=== PATIENT | female | born 1945 | race Asian ===

== ENCOUNTER 2019-06-24 12:01 | Outpatient (CLI) | payer OTHER ==
[2019-06-24 13:56] LABS: Hemoglobin 12.8 g/dL (12.0-16.0); Mean Corpuscular HGB CONC 32.8 g/dL (32.0-36.0); Mean Corpuscular Hemoglobin 26.5 pg (27.0-31.0); Mean Platelet Volume 6.9 fL (7.4-10.4); Platelet Count 302 thou/uL (130-400); Red Blood Cell (RBC) Count 4.81 mill/uL (4.20-5.40); White Blood Cell (WBC) Count 7.1 thou/uL (4.8-10.8)
[2019-06-24 14:23] LABS: Anion Gap 13 mmol/L (10-20); BUN (Urea Nitrogen) 15 mg/dL (9.8-20.1); Calc. Creatinine Clearance 0 mL/min (70-130); Calcium 9.1 mg/dL (7.8-10.44); Carbon Dioxide 29 mmol/L (23-31); Chloride 97 mmol/L (98-107); Estimated GFR-MDRD Greater than 90; Glucose 96 mg/dL (83-110); Potassium 3.6 mmol/L (3.5-5.1); Sodium 135 mmol/L (136-145)
--- NOTE | 2019-06-28 18:53 | EKG ---
Test Reason : Blood Pressure : / mmHG Vent. Rate : 080 BPM Atrial Rate : 080 BPM P-R Int : 148 ms QRS Dur : 086 ms QT Int : 382 ms P-R-T Axes : 043 -45 058 degrees QTc Int : 440 ms Normal sinus rhythm Left axis deviation Pulmonary disease pattern Cannot rule out Anterior infarct , age undetermined RSR' or QR pattern in V1 suggests right ventricular conduction delay Nonspecific T wave abnormality Abnormal ECG No previous ECGs available Confirmed by ALISA FIELDS, DR. Deal ([id number]) on 06/28/2019 6:52:49 PM Referred By: ALEXIA Confirmed By:DR. Toyin CUELLAR MD
== END 2019-06-24 12:02 | disposition home or self-care (01) ==
LOC: LABBT 12:01
PROVIDERS: ATTEND Thoracic Surgery (Cardiothoracic Vascular Surgery)
DX: Z01.818 Encounter for other preprocedural examination (principal); R91.8 Other nonspecific abnormal finding of lung field
CPT/HCPCS: 80048; 85027; 93005; 93010

== ENCOUNTER 2019-07-16 13:13 | Outpatient (CLI) | payer OTHER ==
--- NOTE | 2019-07-16 15:46 | CT ---
CT CHEST WITH IV CONTRAST: HISTORY: Lung cancer. Primary malignant neoplasm of right main bronchus. COMPARISON: None. FINDINGS: There is atelectatic change in the right upper lobe with an associated right upper lobe bronchus cuto ff sign indicating endobronchial lesion. There is extensive mediastinal lymphadenopathy. There is t umor thrombus causing filling defect in the SVC. There is a moderate right and a small left pleural effusion. Numerous lung nodules are seen throughout the lungs bilaterally. Upper abdominal tomogram s demonstrate no significant abnormalities. There are degenerative changes in the spine. No osteoly tic or osteoblastic lesions are seen. IMPRESSION: Right lung malignancy with metastatic disease. POS: [facility]
--- NOTE | 2019-07-16 16:17 | MRI ---
MRI BRAIN WITH AND WITHOUT IV CONTRAST: 07/16/19 HISTORY: Lung cancer, evaluate for metastatic disease. FINDINGS: There are multiple foci of T2 prolongation of the periventricular white matter consistent with chroni c small vessel disease. There is cortical atrophy. The ventricular size is appropriate and the basila r cisterns patent. No restricted diffusion is seen. No evidence of infarct, hemorrhage, mass, midline shift or abnormal extra-axial fluid collections is noted. No abnormal postcontrast enhancement is se en. IMPRESSION: No evidence of brain metastases. POS: [facility]
== END 2019-07-16 13:14 | disposition home or self-care (01) ==
LOC: SCSCT 13:13
PROVIDERS: ATTEND Internal Medicine Hematology & Oncology
DX: C34.01 Malignant neoplasm of right main bronchus (principal); C79.9 Secondary malignant neoplasm of unspecified site
CPT/HCPCS: 70553; 71260

== ENCOUNTER 2019-07-17 10:26 | Emergency (ER) | payer OTHER ==
[2019-07-17 10:58] LABS: #Lymphocytes 0.9 thou/uL (1.20-3.40); #Monocytes 0.6 thou/uL (0.11-0.59); #Neutrophils 7.4 thou/uL (1.40-6.50); %Basophils 0.3 % (0.0-1.0); %Eosinophils 0.3 % (0.0-10.0); %Monocytes 6.6 % (0.0-10.0); %Neutrophils 82.8 % (42.0-75.0); Hemoglobin 12.6 g/dL (12.0-16.0); Mean Corpuscular HGB CONC 33.6 g/dL (32.0-36.0); Mean Corpuscular Hemoglobin 27.2 pg (27.0-31.0); Mean Corpuscular Volume 81.1 fL (78.0-98.0); Mean Platelet Volume 6.7 fL (7.4-10.4); Platelet Count 312 thou/uL (130-400); RBC Distribution Width 12.1 % (11.5-14.5); Red Blood Cell (RBC) Count 4.62 mill/uL (4.20-5.40); White Blood Cell (WBC) Count 8.9 thou/uL (4.8-10.8)
--- NOTE | 2019-07-17 11:10 | RAD ---
EXAM: Chest 2 views: HISTORY: Cough and shortness of breath for 2 weeks COMPARISON: CT chest 07/16/2019 FINDINGS: There is a normal-sized cardiomediastinal silhouette. Scattered nodules are seen in the lungs. There is opacity in the right apex which represents the right upper lobe atelectasis seen on CT. The bones are unremarkable. IMPRESSION: 1. Multifocal pulmonary nodules most likely represent metastatic disease. 2. Right upper lobe collapse
[2019-07-17 11:20] LABS: ALT (SGPT) 12 U/L (8-55); AST (SGOT) 21 U/L (5-34); Albumin 3.6 g/dL (3.4-4.8); Alkaline Phosphatase 94 U/L (40-110); Anion Gap 16 mmol/L (10-20); BUN (Urea Nitrogen) 10 mg/dL (9.8-20.1); Bilirubin, Total 1.1 mg/dL (0.2-1.2); Calc. Creatinine Clearance 0 mL/min (70-130); Calcium 9.1 mg/dL (7.8-10.44); Carbon Dioxide 24 mmol/L (23-31); Chloride 89 mmol/L (98-107); Estimated GFR-MDRD 89; Globulin 3.6 g/dL (2.4-3.5); Glucose 120 mg/dL (83-110); Potassium 3.1 mmol/L (3.5-5.1); Protein, Total 7.2 g/dL (6.0-8.3); Sodium 126 mmol/L (136-145)
[2019-07-17] MEDS ORDERED: Iopamidol-370 76% 500 ML 1 ML ONE (11:47)
[2019-07-17] MEDS ORDERED: Aspirin Chewable 81 MG TAB ONE (14:15)
--- NOTE | 2019-07-17 14:39 | CT ---
CT ANGIOGRAM CHEST: 07/17/2019 HISTORY: Right sided lung cancer. Worsening shortness of breath with right sided chest pain. COMPARISON: Chest CT from 07/16/2019. TECHNIQUE: Axial CT imaging obtained at 2.5 mm intervals from the thoracic inlet through the upper abdomen with IV contrast using CT angiogram protocol. Coronal and sagittal 3D reformatted imaging obtained. FINDINGS: No axillary lymphadenopathy is noted on either side. The chest CT performed on 07/16/2019 demonstrate s superior vena cava clot, which is difficult to visualize on this examination secondary to obscurati on on the basis of venous contrast media. Superior vena cava clot is noted on axial image 34. No disc rete hilar adenopathy on the left. Subcarinal adenopathy present, measuring 2 cm. There is an ill-def ined, large, stable right hilar/right upper lobe mass lesion, which obliterates the right upper lobe bronchus, with associated right middle lobe collapse. It is difficult to accurately measure the size of the obstructing right upper lobe mass lesion secondary to it blending in with the adjacent complet reginaldo collapsed right upper lobe. There is pretracheal soft tissue density, consistent with lymphadenop athy, measuring up to 2 cm, just proximal to the axial level of the [place]. There is a small to mode rate sized right pleural effusion and there is a small left pleural effusion. Enumerable pulmonary no dules are noted throughout both lungs, consistent with widespread pulmonary parenchymal metastatic di sease. Review of the upper abdomen appears grossly unremarkable. There is adequate opacification of the pulmonary arterial vasculature. There is segmental acute pulmo nary embolism involving the left upper lobe on axial image 41. There is nonocclusive pulmonary arteri al embolism within the lobar pulmonary arteries supplying the left lower lobe on axial image 49. Seco ndary to tumor compression there is marked attenuation of the pulmonary arterial vasculature supplyin g the right upper lobe. There is acute pulmonary artery embolism involving a segmental pulmonary dwayne ry within the posterior aspect of the right lower lobe on axial image 63. Review of the osseous structures demonstrates no discrete osseous lesion within the spine. There is a suspicious lytic lesion involving the posterolateral aspect of the left fourth rib on axial image 25 . Whole body bone scan suggested for full assessment. There is a small pericardial effusion. IMPRESSION: 1. Large right hilar mass lesion obliterating the right upper lobe bronchus with associated right upp er lobe collapse. 2. Mediastinal metastatic lymphadenopathy. 3. Enumerable pulmonary nodules throughout both lungs, consistent with widespread pulmonary parenchym al metastatic disease. 4. Lytic lesion within the fourth rib, posterolaterally, on the left, suspicious for osseous metastat ic disease. Full assessment via bone scan suggested. 5. Small pericardial effusion. 6. Bilateral pleural effusions. 7. Bilateral pulmonary artery emboli. 8. Clot within superior vena cava. Royer Nelson was made aware, via phone, by Dr. Berrios at 2:16 p.m. on 07/17/2019. CODE CR POS: [facility]
[2019-07-17 17:11] LABS: Prothrombin Time 13.5 SEC (12.0-14.7)
[2019-07-17] MEDS ORDERED: Enoxaparin Sodium 60 MG/0.6 ML SYRINGE ONE (17:51)
== END 2019-07-17 19:10 | disposition short-term general hospital (02) ==
LOC: ERS 10:26
DX: C34.11 Malignant neoplasm of upper lobe, right bronchus or lung (principal); J90 Pleural effusion, not elsewhere classified; C78.1 Secondary malignant neoplasm of mediastinum; I26.99 Other pulmonary embolism without acute cor pulmonale; I82.210 Acute embolism and thrombosis of superior vena cava; M19.90 Unspecified osteoarthritis, unspecified site; I10 Essential (primary) hypertension; Z79.891 Long term (current) use of opiate analgesic; Z79.899 Other long term (current) drug therapy
CPT/HCPCS: 36415; 71046; 71275; 80053; 83735; 83880; 84484; 85025; 85379; 85610; 85730; 86850; 86900; 86901; 87804; 93005; 94760; 96372; J1650; Q9967

== ENCOUNTER 2019-07-22 09:10 | Outpatient (CLI) | payer OTHER ==
--- NOTE | 2019-07-23 10:30 | PET ---
PET CT: HISTORY: 73-year-old female with lung cancer. Exam requested for initial staging. 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 Malignant neoplasm of right main bronchus. COMPARISON: None. CORRELATION: CT pulmonary angiogram of 05/16/2020. TECHNIQUE: PET scanning with CT attenuation correction was performed from the vertex through the proximal thigh s following the intravenous administration of 10.7 mCi F18-FDG in the left wrist. FINDINGS: There is increased FDG localization in the large right hilar/perihilar/upper lobe mass with a SUV of 17.4. A focus of increased FDG localization is also seen in the left tonsil with a SUV of 6.3. There are multiple hypermetabolic lymph nodes with SUVs of 12.2 in the right paratracheal, 9.3 in the precarinal, 17.1 in the subcarinal, 7 in the AP window, and 7.5 in the left hilum. Numerous hypermetabolic lung nodules are seen bilaterally with a maximum SUV of 10.6 in the left lung base. There is a small hypermetabolic left paracrural lymph node (between the left crux and stomach) with a SUV of 3.1. There are bilateral hypermetabolic supraclavicular lymph nodes with SUVs of 7 .7 on the right and 10. 3 on the left. No hypermetabolic liver, adrenal, or skeletal lesions are seen. There is physiologic activity in the GI and tracts, and brain. The CT scan used for attenuation correction demonstrates a small left and moderate right pleural effu elayne, and a tiny pericardial effusion. IMPRESSION: 1. Right lung malignancy with metastatic disease as discussed above. 2. Hypermetabolic focus in the left tonsil. This should be evaluated with direct visualization. Discussed over the telephone with Dr. Doran at 1006 hours on 07/23/2019. CODE CR. POS: [facility]
== END 2019-07-22 09:11 | disposition home or self-care (01) ==
LOC: PET 09:10
PROVIDERS: ATTEND Internal Medicine Hematology & Oncology
DX: C34.01 Malignant neoplasm of right main bronchus (principal); C79.9 Secondary malignant neoplasm of unspecified site
CPT/HCPCS: 78815; A9552

== ENCOUNTER 2019-10-29 07:35 | Outpatient (CLI) | payer OTHER ==
--- NOTE | 2019-10-29 10:59 | PET ---
Radionucleotide PET with CT attenuation correction HISTORY: Malignant neoplasm right mainstem bronchus. Restaging. COMPARISON: 07/22/1999 FINDINGS: Physiologic uptake of radiotracer throughout the enteric system and along each urinary trac t, and at the muscles of phonation. Focal area of increased activity at the left tonsil now shows max SUV 4.4 (previously 5.8). At the right side of the thyroid gland, there is now a focal area of increased activity max SUV 6.0 ( previously 4.8). Given the fused images and lack of a visible adjacent lymph node, the hypermetabolic focus is favored to actually be within the right thyroid lobe. Uptake associated with the right suprahilar mass now shows max SUV 14.7 (previously 18.2). Many of the areas of abnormal uptake throughout the lungs, pleura, and mediastinal lymph nodes have c ompletely resolved. The remaining mediastinal lymph node hypermetabolic activity is as follows: Left hilar 5.1 (previously 7.5) Precarinal 8.9 (9.5) Subcarinal 5.4 (17.1) A small focus of residual activity remains associated with the far anterior right pleura at the level of the ascending aorta max SUV 3.0 (previously 11.4). Uptake associated with the L4 transverse process max SUV 2.6 is likely reactive rather than neoplasti c. Nondiagnostic CT attenuation correction images show the atelectatic component of the right upper lobe to have improved slightly. Right pleural fluid has increased, however, with slightly greater leftward shift of the mediastinum. Minimal pericardial fluid also noted. IMPRESSION : Significant improvement. Complete clearing of many of the metastatic lesions. Significantly decreased activity associated with the remaining intrathoracic metastatic disease. Hypermetabolic focus associated with the left tonsil persists. Tiny hypermetabolic focus of the right neck favored to be centered within the right thyroid lobe. Ple ase consider dedicated thyroid sonogram to evaluate for an aggressive thyroid mass or adjacent lymph node. Slight interval increase in size of right pleural effusion.
== END 2019-10-29 07:36 | disposition home or self-care (01) ==
LOC: PET 07:35
PROVIDERS: ATTEND Internal Medicine Hematology & Oncology
DX: C34.01 Malignant neoplasm of right main bronchus (principal); C79.89 Secondary malignant neoplasm of other specified sites; E07.9 Disorder of thyroid, unspecified; J90 Pleural effusion, not elsewhere classified
CPT/HCPCS: 78815; A9552

== ENCOUNTER 2019-11-08 13:12 | Outpatient (CLI) | payer OTHER ==
--- NOTE | 2019-11-08 17:39 | ULT ---
THYROID ULTRASOUND: 11/08/19 INDICATIONS: The film was performed in follow-up to PET scan of 10/29/19 which revealed activity in the region of t he right thyroid. FINDINGS: Both lobes are relatively homogeneous and have symmetric size with left lobe measuring 1.2 x 3.2 x 1. 0 cm and right lobe measuring 1.4 x 4.1 x 2.0 cm. There is an oblong shaped complex nodule in the superior to mid right lobe measuring 1.7 x 0.8 x 1.1 cm. No other mass or nodule identified. IMPRESSION: Small oblong shaped predominantly isoechoic but somewhat heterogeneous nodule in the upper mid right lobe of thyroid. Because of its apparent increased activity on PET scan, recommend ultrasound guided FNA to further evaluate. POS: [facility]
== END 2019-11-08 13:13 | disposition home or self-care (01) ==
LOC: SCSULT 13:12
PROVIDERS: ATTEND Internal Medicine Hematology & Oncology
DX: R94.8 Abnormal results of function studies of other organs and systems (principal); E04.1 Nontoxic single thyroid nodule
CPT/HCPCS: 76536

== ENCOUNTER 2019-11-16 11:05 | Outpatient (CLI) | payer OTHER ==
[2019-11-17 12:47] LABS: SARS-CoV-2 MS2 Positive; SARS-CoV-2 N Gene Negative; SARS-CoV-2 S Gene Negative; SARS-CoV-2 orf1ab Negative
== END 2019-11-16 11:06 | disposition home or self-care (01) ==
LOC: SCSLAB 11:05
PROVIDERS: ATTEND Internal Medicine Hematology & Oncology
DX: Z01.812 Encounter for preprocedural laboratory examination (principal); Z11.59 Encounter for screening for other viral diseases; C34.01 Malignant neoplasm of right main bronchus
CPT/HCPCS: 87635; U0003

== ENCOUNTER 2019-11-18 12:08 | Day surgery (SDC) | payer OTHER ==
[2019-11-17 15:18] VITALS: BMI 26.2
[2019-11-18] MEDS ORDERED: Lidocaine 1% PF 5 ML VIAL ONE (12:30)
[2019-11-18] MEDS ORDERED: Sodium Bicarbonate 2.5 MEQ/5 ML VIAL ONE (12:30)
--- NOTE | 2019-11-18 14:02 | ULT ---
Ultrasound-guided right thyroid nodule FNA INDICATION: FDG avid superior pole right thyroid gland lesion Comparison prior thyroid ultrasound dated November 08, 2019 and a PET scan dated October 29, 2019 TECHNIQUE: Informed consent was obtained through an behavior specialist and the patient's son. The lesion wit hin the superior pole of the right thyroid gland was localized. Due to the patient having a somewhat short neck, transverse approach with the ultrasound probe was only method available for acce ss. Site overlying the lesion was prepped and draped in the usual sterile fashion. Buffered 1% lidocaine was measured overlying subcutaneous tissues. Under ultrasound guidance, 5 separate 25-gauge needle was passed through the lesion for FNA sampling. Pathology was on-site to obtain the FNA samples once acquired. 5 total FNA samples were submitted. Post procedure images demonstrated no sign ificant intraparenchymal or adjacent soft tissue hematoma. The patient tolerated the procedure without difficulty. IMPRESSION: Successful ultrasound-guided FNA sampling of a suspicious superior pole right thyroid gla nd lesion.
[2019-11-18 14:32] VITALS: BP 148/81; TEMP 98.4
== END 2019-11-18 14:15 | disposition home or self-care (01) ==
LOC: ULT 12:08
PROVIDERS: ATTEND Internal Medicine Hematology & Oncology
PROC: BG44ZZZ Ultrasonography of Thyroid Gland (ICD-10-PCS; principal; 2019-11-18)
PROC: 0GJK3ZZ Inspection of Thyroid Gland, Percutaneous Approach (ICD-10-PCS; principal; 2019-11-18)
DX: E06.3 Autoimmune thyroiditis (principal); C34.90 Malignant neoplasm of unspecified part of unspecified bronchus or lung; I10 Essential (primary) hypertension
CPT/HCPCS: 60100; 76942; 88173; J2001

== ENCOUNTER 2020-01-25 14:13 | Outpatient (CLI) | payer OTHER ==
[~2020-01-25 14:13] MED LIST: Iopamidol 370 76% 100 ML VIAL ONE
--- NOTE | 2020-01-25 15:22 | CT ---
CT Chest Abd Pelvis W Con History: Malignant neoplasm of bronchus Comparison: PET/CT October 2019. CT chest July 2019 Findings: Large right layering pleural effusion. The partially necrotic mass in the right upper lobe has decreased in size from the July 2019 exam and difficult to measure relative to the prior none contrast attenuated corrected images from the PET/CT October 2019 although is likely decreased in si ze. Mass measures approximately 3.2 cm. Mild leftward mediastinal shift due to large right layering pleural effusion which is not significantly increased in size from the October 2019 exam. Innumerable small nodules throughout the lungs are without significant interval growth from the September xamination and have markedly decreased in size and number from the July exam. Trace pericardial fluid. No axillary or internal mammary adenopathy. Aortic contour is nonaneurysmal. No free intraperitoneal gas or fluid. No dilated loops of large and small bowel. No hydronephrosis. No suspicious hepatic mass. No hydronephrosis. Spleen is unremarkable. Degenerative glands are unrema rkable. Pancreas is unremarkable. No SVC thrombosis appreciated. Healing likely pathologic left posterior fourth rib fracture. No new suspicious osteolytic or osteobl astic foci. The thoracic and lumbar spine are intact. Sternum and manubrium are intact. Posterior elements are in tact. 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 Impression: 1. Continued partial response to therapy with size decreased right upper lobe mass and decreasing siz e and number of the pulmonary metastasis. 2. Healing posterior left fourth rib pathologic fracture. No other suspicious osteolytic or osteoblas tic lesion to suggest other osseous metastasis. 3. Size unchanged large right layering pleural effusion with some mediastinal mass effect.
--- NOTE | 2020-01-25 20:56 | CT ---
CT NECK WITH CONTRAST: 01/25/20 INDICATIONS: Malignant neoplasm of bronchus. Correlation made to PET CT of 10/29/19. That exam describes some activity in the region of the left tonsil and in the region of the right lob e of thyroid. FINDINGS: Parotid glands and submandibular glands appear unremarkable. Thyroid is unremarkable by CT. This is mildly heterogeneous but no dominant mass lesion identified. Nasopharynx unremarkable. Oropharynx and base of tongue unremarkable. [place] tonsils appear unremarkable by CT. Hypopharynx and larynx unremarkable. Parapharyngeal space, rubber worker space, and retropharyngeal space unremarkable. Carotid space unremarkable. Review of lymph node levels shows small nonspecific level I submandibular nodes which are subcentimet er. Nonspecific level II lymph nodes which do not appear pathologic. No significant level III or IV lymph nodes identified. Cervical spine unremarkable. Paranasal sinuses appear clear. IMPRESSION: Unremarkable CT neck. No mass or adenopathy identified. POS: [facility]
== END 2020-01-25 14:14 | disposition home or self-care (01) ==
LOC: BICCT 14:13
PROVIDERS: ATTEND Internal Medicine Hematology & Oncology
DX: C34.01 Malignant neoplasm of right main bronchus (principal); R93.7 Abnormal findings on diagnostic imaging of other parts of musculoskeletal system; R91.8 Other nonspecific abnormal finding of lung field; C78.00 Secondary malignant neoplasm of unspecified lung; S22.32XD Fracture of one rib, left side, subsequent encounter for fracture with routine healing; J90 Pleural effusion, not elsewhere classified; J98.59 Other diseases of mediastinum, not elsewhere classified
CPT/HCPCS: 70491; 71260; 74177; Q9967

== ENCOUNTER 2020-01-27 10:51 | Day surgery (SDC) | payer OTHER ==
[2020-01-27 11:29] LABS: #Lymphocytes 0.9 thou/uL (1.20-3.40); #Monocytes 0.4 thou/uL (0.11-0.59); #Neutrophils 2.5 thou/uL (1.40-6.50); %Basophils 0.3 % (0.0-1.0); %Eosinophils 0.5 % (0.0-10.0); %Lymphocytes 22.5 % (21.0-51.0); %Monocytes 11.4 % (0.0-10.0); %Neutrophils 65.2 % (42.0-75.0); Hemoglobin 11.2 g/dL (12.0-16.0); Mean Corpuscular HGB CONC 32.1 g/dL (32.0-36.0); Mean Corpuscular Hemoglobin 26.6 pg (27.0-31.0); Mean Corpuscular Volume 82.8 fL (78.0-98.0); Mean Platelet Volume 7.5 fL (7.4-10.4); Platelet Count 200 thou/uL (130-400); RBC Distribution Width 12.7 % (11.5-14.5); White Blood Cell (WBC) Count 3.8 thou/uL (4.8-10.8)
[2020-01-27 11:34] LABS: INR-International Normal Ratio 2.1; Prothrombin Time 23.7 sec (12.0-14.7)
--- NOTE | 2020-01-27 13:22 | ULT ---
ULTRASOUND-GUIDED RIGHT THORACENTESIS THERAPEUTIC: DATE: 01/27/2020 HISTORY: 74-year-old female with right lung cancer with large right malignant pleural effusion TECHNIQUE: Signed informed consent obtained. Site selected for puncture: Right posterior lateral. Overlying skin prepared and draped in usual sterile fashion. 25-gauge needle used to apply buffered lidocaine superficially and deeply. 5 Kisw[place]ili Yueh catheter with stylette advanced into the pocket of pleural fluid. After drainage, the Yueh catheter was removed. Patient tolerated the procedure well. No obvious intermediate complications. Awaiting routine post pleurocentesis inspiration and expiration chest radiograph. FINDINGS: Volume of pleural fluid prior to procedure:large. Volume of residual pleural fluid after drainage:Small or moderate. Volume of pleural fluid drained:1550 mL Appearance of pleural fluid:Nonhemorrhagic, opaque, yellowish-hassan. IMPRESSION: Successfultherapeutic paracentesis, with drainage of 1.55 L of right pleural fluid.
[2020-01-27 13:23] VITALS: BP 177/92; TEMP 98.1; BMI 25.5
--- NOTE | 2020-01-27 13:48 | RAD ---
RADIOGRAPH CHEST 2 VIEW: DATE: 01/27/2020 TIME: 1:06 PM HISTORY: 74-year-old female with right upper lobe lung cancer and large right pleural effusion. Post pleurocen tesis radiograph to evaluate for pneumothorax. COMPARISON: 07/17/2019 FINDINGS: Again noted is the blunting of right lateral costophrenic angle. The right pleural effusion volume ross s markedly decreased since CT of 01/25/2020, and is also significantly smaller than on 07/17/2019. There is no pneumothorax. The right upper lobe tumor, contiguous with and inseparable from post obstr uctive right upper lobe atelectasis, is much smaller now. The lungs are diffusely much better aerated, with the previously demonstrated numerous pulmonary nodules difficult to visualize on plain radiograph (they are much smaller on the 01/25/2020 CT compared to 07/17/2019 CT). Between the inspiration and expiration views, the right hemidiaphragm is relatively immobile compared to the left . No pulmonary edema. No consolidation. No pneumothorax. IMPRESSION: 1) dramatic interval decrease in volume of right pleural effusion after drainage of 1.55 L of fluid f rom thoracentesis. 2) no pneumothorax. 3) relatively immobile right hemidiaphragm 4) significant interval decrease in size of right upper lobe lung cancer and associated right upper l obe postobstructive atelectasis. 5) significantly improved aeration of the lungs.
[2020-01-27] MEDS ORDERED: Benzonatate 100 MG CAP ONE (14:03)
--- NOTE | 2020-01-27 14:36 | RAD ---
RADIOGRAPH CHEST 2 VIEW: DATE: 01/27/2020 TIME: 2:09 PM HISTORY: 74-year-old female status post right therapeutic pleurocentesis. COMPARISON: 01/27/2020 1:06 PM FINDINGS: There is no pneumothorax. There is no interval change. Patient was discharged home with instructions for follow-up with Dr. Doran. IMPRESSION: No pneumothorax, and no complications.
== END 2020-01-27 14:45 | disposition home or self-care (01) ==
LOC: ULT 10:51
PROVIDERS: ATTEND Internal Medicine Hematology & Oncology
PROC: 0W993ZZ Drainage of Right Pleural Cavity, Percutaneous Approach (ICD-10-PCS; principal; 2020-01-27)
PROC: BB4BZZZ Ultrasonography of Pleura (ICD-10-PCS; principal; 2020-01-27)
DX: C34.11 Malignant neoplasm of upper lobe, right bronchus or lung (principal); J91.0 Malignant pleural effusion; I10 Essential (primary) hypertension; Z79.01 Long term (current) use of anticoagulants; Z79.899 Other long term (current) drug therapy
CPT/HCPCS: 71045; 76942; 85025; 85610

== ENCOUNTER 2020-04-05 10:24 | Outpatient (CLI) | payer OTHER ==
--- NOTE | 2020-04-05 10:48 | RAD ---
2 views of the chest: 04/05/2020 COMPARISON: 02/29/2020 HISTORY: Stage IV lung cancer, cough FINDINGS: There is no pneumothorax evident. There are pulmonary nodules noted bilaterally suspicious for extensive metastatic disease. There is a new moderate/large pleural effusion on the right. This causes shift of the mediastinal structures to the left with narrowing of the right mainstem bronchus and lower trachea. There is a masslike density in the right hilar region consistent with the provided history of lung cancer. IMPRESSION: Interval development of moderate/large right pleural effusion. Findings suggesting right hilar mass. Numerous bilateral pulmonary nodules consistent with metastatic disease.
== END 2020-04-05 10:25 | disposition home or self-care (01) ==
LOC: BICRAD 10:24
PROVIDERS: ATTEND Nurse Practitioner Acute Care
DX: C34.01 Malignant neoplasm of right main bronchus (principal); J90 Pleural effusion, not elsewhere classified; R91.8 Other nonspecific abnormal finding of lung field
CPT/HCPCS: 71046

== ENCOUNTER 2020-04-05 11:00 | Observation (INO) | payer OTHER ==
[2020-04-05 12:49] LABS: #Lymphocytes 0.8 thou/uL (1.20-3.40); #Monocytes 0.6 thou/uL (0.11-0.59); #Neutrophils 3.3 thou/uL (1.40-6.50); %Basophils 0.1 % (0.0-1.0); %Eosinophils 0.2 % (0.0-10.0); %Lymphocytes 17.5 % (21.0-51.0); %Monocytes 12.8 % (0.0-10.0); %Neutrophils 69.4 % (42.0-75.0); Hemoglobin 10.9 g/dL (12.0-16.0); Mean Corpuscular HGB CONC 32.5 g/dL (32.0-36.0); Mean Corpuscular Hemoglobin 27.2 pg (27.0-31.0); Mean Corpuscular Volume 83.7 fL (78.0-98.0); Platelet Count 189 thou/uL (130-400); RBC Distribution Width 13.3 % (11.5-14.5); Red Blood Cell (RBC) Count 3.99 mill/uL (4.20-5.40); White Blood Cell (WBC) Count 4.7 thou/uL (4.8-10.8)
[2020-04-05 13:11] LABS: ALT (SGPT) 13 U/L (8-55); AST (SGOT) 21 U/L (5-34); Albumin 3.8 g/dL (3.4-4.8); Alkaline Phosphatase 72 U/L (40-110); Anion Gap 15 mmol/L (10-20); BUN (Urea Nitrogen) 12 mg/dL (9.8-20.1); Bilirubin, Total 0.9 mg/dL (0.2-1.2); Calc. Creatinine Clearance 0 mL/min (70-130); Calcium 8.6 mg/dL (7.8-10.44); Carbon Dioxide 25 mmol/L (23-31); Chloride 101 mmol/L (98-107); Estimated GFR-MDRD 80; Glucose 98 mg/dL (83-110); Potassium 4.6 mmol/L (3.5-5.1); Protein, Total 6.8 g/dL (6.0-8.3); Sodium 136 mmol/L (136-145)
--- NOTE | 2020-04-05 13:16 | RAD ---
PORTABLE CHEST 1 VIEW: Date; 04/05/2020 Time: 1221 hours HISTORY: Lung cancer. COMPARISON: 04/05/2020. FINDINGS/IMPRESSION: A large pleural effusion is again seen as on the earlier study at 1038 hours same date. The heart siz e is stable. The aorta is tortuous. The right pleural effusion appears larger as compared to the prio r exam. Nodular densities in the left lung are again noted. POS: [facility]
[2020-04-05] MEDS ORDERED: Senokot S 8.6-50 MG TAB PO PRN (15:28)
--- NOTE | 2020-04-05 16:13 | PDOC.HHP ---
Hospitalist HPI - History of Present Illness Shortness of breath History of Present Illness: Patient is a pleasant 74-year-old Mandarin speaking lady who was seen in the emergency room on April 05, 2020. Patient is accompanied by her son, who was the word processing supervisor for this clinical encounter. Patient has a history of stage IV right upper lobe lung cancer. She also has a history of pulmonary embolism. On January 26 and February 28 of this year she underwent ultrasound guided thoracentesis for malignant pleural effusion. Patient has been reportedly having progressively worsening shortness of breath over the last several days. She denies any chest pain. She denies any fevers or chills. She denies any nausea or vomiting. She was seen in the oncology clinic today and was sent to the emergency room for admission and thoracentesis. ED Course: BP: 160/88, Pulse: 87, Resp: 14, Temp: 98.2 (Oral), O2 sat: 100 on (3L Oxygen), Time: 04/05/2020 11:01. Hospitalist ROS - Review of Systems Respiratory: reports: shortness of breath, SOB with excertion. denies: cough, dry, hemoptysis, pleuritic pain, sputum, wheezing Cardiovascular: denies: chest pain, palpitations, orthopnea, paroxysmal noc. dyspnea, edema, light headedness All other systems reviewed; all pertinent +/- noted in HPI/Subj - Medication Medications: Allergies: No known drug allergies. Home medications: Losartan 25 mg Patient Dose: once a day. Xarelto FriApr 05, 2020 13:32 SAMAN Quintero, Nancy tablet : Strength - 15 mg : ORAL Patient Dose: 1 tab(s) Oral once a day. Tagrisso FriApr 05, 2020 13:32 SAMAN Quintero, Nancy tablet : Strength - 80 mg : ORAL Patient Dose: 1 tab(s) Oral once a day. Hospitalist History - Past Medical History Other Medical History: Past medical history: Significant for stage IV lung cancer, hypertension and pulmonary embolism. She also has a history of malignant pleural effusion, right knee arthritis. Surgical history: Cataract surgery in 2017. Social history: No history of tobacco use, alcohol use or recreational drug use. Family history: No family history of malignancy. CODE STATUS: I discussed her CODE STATUS. She is full code. - Exam General Appearance: awake alert Eye: anicteric sclera ENT: moist mucosa Neck: supple, symmetric Heart: RRR, no rubs Respiratory - other findings: Breath sounds absent over the right base and midlung Gastrointestinal: soft, non-tender Extremities: no cyanosis Skin: no rashes Psychiatric: normal affect, normal behavior Hospitalist Results - Labs Result Diagrams: 04/05/20 12:36 04/05/20 12:36 Lab results: WBC 4.7 thou/uL (4.8-10.8) L 04/05/20 12:36 Hgb 10.9 g/dL (12.0-16.0) L 04/05/20 12:36 Hct 33.4 % (36.0-47.0) L 04/05/20 12:36 MCV 83.7 fL (78.0-98.0) 04/05/20 12:36 Plt Count 189 thou/uL (130-400) 04/05/20 12:36 Neutrophils % 69.4 % (42.0-75.0) 04/05/20 12:36 Sodium 136 mmol/L (136-145) 04/05/20 12:36 Potassium 4.6 mmol/L (3.5-5.1) 04/05/20 12:36 Chloride 101 mmol/L (98-107) 04/05/20 12:36 Carbon Dioxide 25 mmol/L (23-31) 04/05/20 12:36 BUN 12 mg/dL (9.8-20.1) 04/05/20 12:36 Creatinine 0.71 mg/dL (0.6-1.1) 04/05/20 12:36 Glucose 98 mg/dL (83-110) 04/05/20 12:36 Calcium 8.6 mg/dL (7.8-10.44) 04/05/20 12:36 Total Bilirubin 0.9 mg/dL (0.2-1.2) 04/05/20 12:36 AST 21 U/L (5-34) 04/05/20 12:36 ALT 13 U/L (8-55) 04/05/20 12:36 Alkaline Phosphatase 72 U/L (40-110) 04/05/20 12:36 Troponin I 0.013 ng/mL (< 0.028) 04/05/20 12:36 B-Natriuretic Peptide 54.2 pg/mL (0-100) 04/05/20 12:36 Serum Total Protein 6.8 g/dL (6.0-8.3) 04/05/20 12:36 Albumin 3.8 g/dL (3.4-4.8) 04/05/20 12:36 - EKG Interpretation EKG: EKG by my review shows normal sinus rhythm - Radiology Interpretation Chest x-ray Status: image reviewed by me Additional Comment: PORTABLE CHEST 1 VIEW: Date; 04/05/2020 Time: 1221 hours HISTORY: Lung cancer. COMPARISON: 04/05/2020. FINDINGS/IMPRESSION: A large pleural effusion is again seen as on the earlier study at 1038 hours same date. The heart siz e is stable. The aorta is tortuous. The right pleural effusion appears larger as compared to the prio r exam. Nodular densities in the left lung are again noted. Hospitalist H&P A/P - Problem (1) Shortness of breath Code(s): R06.02 - SHORTNESS OF BREATH Status: Acute (2) Malignant pleural effusion Code(s): J91.0 - MALIGNANT PLEURAL EFFUSION Status: Acute (3) Hypertension Code(s): I10 - ESSENTIAL (PRIMARY) HYPERTENSION Status: Chronic (4) History of pulmonary embolism Code(s): Z86.711 - PERSONAL HISTORY OF PULMONARY EMBOLISM Status: Chronic (5) History of lung cancer Code(s): Z85.118 - PERSONAL HISTORY OF MALIGNANT NEOPLASM OF BRONCHUS AND LUNG Status: Chronic - Plan Plan: Shortness of breath is secondary to large right-sided pleural effusion. Patient will be admitted to the hospital for further management. I will check her PT, PTT and INR. I will hold rivaroxaban for now. We will request ultrasound- guided thoracentesis and studies on the pleural fluid including cytology. We will check COVID-19 test to rule out infection. Continue losartan. Monitor vital signs and titrate antihypertensives as needed. Continue Tagrisso. Level of risk: High Level of complexity: High Estimated length of stay in the hospital: Less than 2 midnights.
[2020-04-05] MEDS ORDERED: Sodium Bicarbonate 2.5 MEQ/5 ML VIAL ONE (16:48)
[2020-04-05] MEDS ORDERED: Lidocaine 1% PF 5 ML VIAL ONE (16:48)
[2020-04-05 17:39] VITALS: BMI 21.2
--- NOTE | 2020-04-05 18:35 | RAD ---
PORTABLE UPRIGHT FRONTAL CHEST RADIOGRAPH: 04/05/20 at 5:17 p.m. COMPARISON: 04/05/20 at 12:21 p.m. HISTORY: Evaluate chest following thoracentesis. FINDINGS: Patient is status post right sided thoracentesis. There has been marked interval decrease in size of the right pleural effusion following thoracentesis. No discrete pneumothorax is seen. Residual small volume right pleural fluid. Residual hazy density in the right perihilar region may represent volume loss or underlying mass. There is partial opacification of the inferior right lower lobe. Bilateral pulmonary nodules are seen suspicious for neoplastic process. IMPRESSION: Interval right thoracentesis with no discrete pneumothorax. Small volume residual right pleural effus ion. Pulmonary nodules and mass-like opacity in the right perihilar region suspicious for malignancy. POS: DARIUS
[2020-04-05 18:59] LABS: Fluid, Protein 4.9 g/dL (Not Available)
[2020-04-05 19:53] LABS: BF Color Pink; Body Fluid Source Pleural Fluid; Clarity Cloudy/Turbid (Clear); Tube # EDTA
[2020-04-05 19:54] LABS: BF RBC Count - Manual 28400 /cu.mm; BF WBC/Nonhematics Ct.-Manual 298 /cu.mm
[2020-04-05 20:00] LABS: BF Segmented Neutrophils 2 %; Cell Count Non Hematic 74 %; Lymphocytes 24 %
[2020-04-05] MEDS ORDERED: Benzonatate 100 MG CAP PO PRN (23:25)
[2020-04-06] MEDS: Acetaminophen 325 MG TAB PO PRN ×2 (00:14→09:42)
[2020-04-06 04:01] LABS: #Lymphocytes 0.9 thou/uL (1.20-3.40); #Monocytes 0.7 thou/uL (0.11-0.59); %Basophils 0.2 % (0.0-1.0); %Eosinophils 0.4 % (0.0-10.0); %Lymphocytes 15.3 % (21.0-51.0); %Monocytes 12.3 % (0.0-10.0); %Neutrophils 71.8 % (42.0-75.0); Hemoglobin 10.4 g/dL (12.0-16.0); Mean Corpuscular HGB CONC 32.4 g/dL (32.0-36.0); Mean Corpuscular Hemoglobin 26.6 pg (27.0-31.0); Mean Corpuscular Volume 82.2 fL (78.0-98.0); Mean Platelet Volume 7.9 fL (7.4-10.4); Platelet Count 192 thou/uL (130-400); RBC Distribution Width 13.2 % (11.5-14.5); Red Blood Cell (RBC) Count 3.91 mill/uL (4.20-5.40); White Blood Cell (WBC) Count 5.6 thou/uL (4.8-10.8)
[2020-04-06 04:04] LABS: INR-International Normal Ratio 1.2; PTT 43.1 sec (22.9-36.1); Prothrombin Time 15.6 sec (12.0-14.7)
[2020-04-06 04:25] LABS: ALT (SGPT) 13 U/L (8-55); AST (SGOT) 13 U/L (5-34); Albumin 3.3 g/dL (3.4-4.8); Alkaline Phosphatase 61 U/L (40-110); Anion Gap 11 mmol/L (10-20); BUN (Urea Nitrogen) 20 mg/dL (9.8-20.1); Bilirubin, Total 0.9 mg/dL (0.2-1.2); Calc. Creatinine Clearance 53 mL/min (70-130); Calcium 8.4 mg/dL (7.8-10.44); Carbon Dioxide 26 mmol/L (23-31); Chloride 101 mmol/L (98-107); Estimated GFR-MDRD 79; Glucose 101 mg/dL (83-110); Potassium 3.8 mmol/L (3.5-5.1); Protein, Total 6.3 g/dL (6.0-8.3); Sodium 134 mmol/L (136-145)
--- NOTE | 2020-04-06 08:08 | ULT ---
Sonographic guided thoracentesis HISTORY: Recurrent symptomatic pleural fluid. FINDINGS: After explaining the procedure and answering all questions, sonographic evaluation confirme d large amount right pleural fluid. Sterile technique, buffered local anesthesia, sonographic guidance, and a right posterior lower inter costal approach were used to carefully advance a 19-gauge Yueh needle and catheter into the pleural fluid. Catheter was left to drain a total volume of 2.3 L of serosanguineous liquid. Catheter was rem julianna with minimal fluid remaining. Patient tolerated the procedure well and was returned in unchanged condition. IMPRESSION : Technically successful sonographic guided thoracentesis.
[2020-04-06] MEDS ORDERED: Losartan 25 MG TAB PO SCH (09:00)
[2020-04-06] MEDS ORDERED: Osimertinib Mesylate [Tagrisso] 80 MG Tablet PO SCH (09:00)
--- NOTE | 2020-04-06 11:38 | PDOC.DS.DS ---
Provider - Provider Date of Admission: 04/05/20 15:44 Date of Discharge: 04/06/20 Admitting Provider: Tanja Hills MD Consultations: None Primary Care Physician: [facility] Course - Hospital Course Hospital Course: Discharge diagnosis: 1. Malignant pleural effusion 2. Hyponatremia 3. Hypoalbuminemia 4. COVID-19 test result pending at the time of this dictation Full course: Patient is a pleasant 69-year-old lady who was admitted to the hospital on 2019 for large right sided pleural effusion, most likely secondary to malignancy. She underwent thoracentesis by interventional radiology. She is advised to follow-up with primary care provider for results of the tests done on the pleural fluid including cytology. She is being discharged home in a stable condition. COVID-19 test was done, result is pending at the time of this dictation. She is advised to follow-up with primary care provider for the same. Resuscitation Status: 04/05/20 15:28 Resuscitation Status Routine Resuscitation Status: FULL: Full Resuscitation - Labs Lab Results: 04/06/20 03:47 04/06/20 03:47 Abnormal Lab Results - Last 48 hrs 04/05/20 12:36: WBC 4.7 L, RBC 3.99 L, Hgb 10.9 L, Hct 33.4 L, Lymphocytes % 17.5 L, Monocytes % 12.8 H, Lymphocytes # 0.8 L, Monocytes # 0.6 H 04/05/20 17:00: Fluid Clarity Cloudy/Turbid H 04/06/20 03:47: Sodium 134 L, Albumin 3.3 L, Albumin/Globulin Ratio 1.1 L 04/06/20 03:47: RBC 3.91 L, Hgb 10.4 L, Hct 32.1 L, MCH 26.6 L, Lymphocytes % 15.3 L, Monocytes % 12.3 H, Lymphocytes # 0.9 L, Monocytes # 0.7 H 04/06/20 03:47: PT 15.6 H, APTT 43.1 H - Physical Exam Vitals: Vital Signs (12 hours) Temp Pulse Resp BP BP Pulse Ox 04/06/20 07:10 98.2 F 83 21 H 138/78 99 04/06/20 03:45 97.5 F L 81 28 H 127/76 100 Weight Weight 109 lb Physical Exam: The patient was seen and examined on the day of discharge. Patient denies chest pain or shortness of breath. Vital signs are stable. S1 and S2 are heard. Lungs are clear to auscultation bilaterally. Problem - Problem (1) Malignant pleural effusion Code(s): J91.0 - MALIGNANT PLEURAL EFFUSION Status: Acute (2) Shortness of breath Code(s): R06.02 - SHORTNESS OF BREATH Status: Acute (3) Hypertension Code(s): I10 - ESSENTIAL (PRIMARY) HYPERTENSION Status: Chronic (4) History of pulmonary embolism Code(s): Z86.711 - PERSONAL HISTORY OF PULMONARY EMBOLISM Status: Chronic (5) History of lung cancer Code(s): Z85.118 - PERSONAL HISTORY OF MALIGNANT NEOPLASM OF BRONCHUS AND LUNG Status: Chronic Plan - Discharge Medications Home Medications: Medication Instructions Recorded Confirmed Type Codeine Phosphate/Guaifenesin 5 ml PO Q6H PRN 06/24/19 04/05/20 History [Virtussin AC 10-100 mg/5 ml Lq] traMADol HCl [Tramadol HCl] 50 mg PO Q6H PRN 06/24/19 04/05/20 History Benzonatate [Tessalon] 100 mg PO TID PRN 11/17/19 04/05/20 History Losartan [Cozaar] 25 mg PO DAILY 11/17/19 04/05/20 History Albuterol Sulfate [Albuterol 2.5 mg NEB Q8H PRN 11/18/19 04/05/20 History Sulfate Neb] Osimertinib Mesylate [Tagrisso] 80 mg PO DAILY 11/18/19 04/05/20 History Rivaroxaban [Xarelto] 20 mg PO DAILY 11/18/19 04/05/20 History Albuterol Sulfate [Albuterol 2 mg PO TID 02/28/20 04/05/20 History Sulfate Syrup] Allergies: No Known Allergies Allergy (Verified 04/05/20 17:44) - Discharge Instructions Discharge Instructions:: Follow-up with primary care provider for results of COVID-19 test as well as result of tests done on pleural fluid. Activity:: Activity as Tolerated Nourishment:: Heart Healthy Diet - Follow up Plan Referrals: [facility] [Primary Care Provider] - 3 Days Fredo Doran MD [Active] - 10 Days Disposition: HOME Quality - Care Measures CORE MEASURES:: N/A
[2020-04-06 13:05] VITALS: BP 97/55; TEMP 98.4
[2020-04-06 14:52] LABS: SARS-CoV-2 MS2 Positive; SARS-CoV-2 N Gene Negative; SARS-CoV-2 S Gene Negative; SARS-CoV-2 by NAA Not Detected (NotDetected); SARS-CoV-2 orf1ab Negative
[2020-04-06] MEDS ORDERED: Midodrine HCl 5 MG TAB PO SCH (21:00)
--- NOTE | 2020-04-08 13:16 | EKG ---
Test Reason : Blood Pressure : / mmHG Vent. Rate : 083 BPM Atrial Rate : 084 BPM P-R Int : 000 ms QRS Dur : 082 ms QT Int : 360 ms P-R-T Axes : 000 -19 007 degrees QTc Int : 423 ms Sinus rhythm Possible Anterior infarct , age undetermined Abnormal ECG Confirmed by YENNI ESCOBAR DO ([id number]), editor city KELIN HURST ([id number]) on 04/08/2020 1:16:11 PM Referred By: Confirmed By:YENNI ESCOBAR DO
== END 2020-04-06 15:50 | disposition home or self-care (01) ==
LOC: ERS 11:00 → ONC 15:44
PROVIDERS: ADMIT Internal Medicine; ATTEND Internal Medicine
PROC: 0W993ZZ Drainage of Right Pleural Cavity, Percutaneous Approach (ICD-10-PCS; principal; 2020-04-06)
DX: C34.11 Malignant neoplasm of upper lobe, right bronchus or lung (principal); J91.0 Malignant pleural effusion; E87.1 Hypo-osmolality and hyponatremia; E88.09 Other disorders of plasma-protein metabolism, not elsewhere classified; I10 Essential (primary) hypertension; M17.11 Unilateral primary osteoarthritis, right knee; Z86.711 Personal history of pulmonary embolism; Z79.01 Long term (current) use of anticoagulants; Z79.899 Other long term (current) drug therapy; Z20.828 Contact with and (suspected) exposure to other viral communicable diseases
CPT/HCPCS: 36415; 71045; 76942; 80053; 82042; 83615; 83880; 84157; 84484; 85025; 85060; 85610; 85730; 87635; 88112; 88305; 88341; 88342; 89051; 93005; 94760; G0378; U0003

== ENCOUNTER 2020-04-26 09:00 | Outpatient (CLI) | payer OTHER ==
--- NOTE | 2020-04-26 09:55 | CT ---
EXAM: CT Chest Abd Pelvis W Con PROVIDED CLINICAL HISTORY: Lung cancer COMPARISON: 01/25/2020 FINDINGS: Interval enlargement of right suprahilar hypodense soft tissue mass, now measuring at least 5.8 cm in greatest transverse dimension by about 6.1 cm in craniocaudal dimension (compared with about 5.2 cm in AP dimension by 4.3 cm in craniocaudal dimension on the prior). Interval conspicuous enlargement of right pleural effusion, occupying the entirety of the right hemit horax and associated with continued shift of the mediastinal contents leftward. There is complete atelectasis of the right lung. Multiple left-sided pulmonary nodules are redemonstrated, with enlargement of existing nodules and de velopment of numerous new nodules. There is no evidence for thoracic lymph node enlargement. There is trace pericardial fluid. There is no evidence for pneumothorax. The liver, spleen, pancreas, kidneys and adrenal glands demonstrate an unremarkable CT appearance. Th ere is no bowel dilatation, inflammatory fat stranding, free fluid or lymph node enlargement within the abdomen. Stable appearance to the posterior left fourth rib. The osseous structures appear otherwise unremarka ble with the exception of mild lower lumbar degenerative change. IMPRESSION: 1. Interval enlargement of right suprahilar soft tissue mass with prominent interval increase in righ t pleural fluid and worsening of left hemithoracic pulmonary metastatic disease. 2. Stable abdomen and pelvis.
== END 2020-04-26 09:01 | disposition home or self-care (01) ==
LOC: BICCT 09:00
PROVIDERS: ATTEND Internal Medicine Hematology & Oncology
DX: C34.01 Malignant neoplasm of right main bronchus (principal)
CPT/HCPCS: 71260; 74177

== ENCOUNTER 2020-05-04 07:02 | Outpatient (CLI) | payer OTHER ==
[2020-05-05 03:08] LABS: SARS-CoV-2 MS2 Positive; SARS-CoV-2 N Gene Negative; SARS-CoV-2 S Gene Negative; SARS-CoV-2 by NAA Not Detected (NotDetected); SARS-CoV-2 orf1ab Negative
== END 2020-05-04 07:03 | disposition home or self-care (01) ==
LOC: LABBT 07:02
PROVIDERS: ATTEND Thoracic Surgery (Cardiothoracic Vascular Surgery)
DX: Z01.812 Encounter for preprocedural laboratory examination (principal); J90 Pleural effusion, not elsewhere classified; R91.8 Other nonspecific abnormal finding of lung field; Z20.828 Contact with and (suspected) exposure to other viral communicable diseases
CPT/HCPCS: 87635; U0003

== ENCOUNTER 2020-05-08 05:57 | Day surgery (SDC) | payer OTHER ==
[2020-05-05 10:25] VITALS: BMI 22.2
[2020-05-08] MEDS ORDERED: Sodium Chloride 0.9% 30 ML ONE (06:43)
[2020-05-08] MEDS ORDERED: Bupivacaine PF 0.5% 30 ML VIAL ONE (06:43)
[2020-05-08] MEDS ORDERED: EPINEPHrine 1 MG/ML AMP ONE (06:43)
[2020-05-08] MEDS ORDERED: Midazolam HCl 2 mg/2 ml Vial ONE (06:57)
[2020-05-08] MEDS ORDERED: Ketamine 50 MG/ML (10ML VIAL) ONE (06:57)
--- NOTE | 2020-05-08 09:23 | OP ---
DATE OF PROCEDURE: 05/08/2020 PREOPERATIVE DIAGNOSES: 1. Recurrent malignant right pleural effusion. 2. Need for MediPort. PROCEDURES PERFORMED: 1. Right PleurX catheter placement. 2. Single-lumen low-profile MediPort placement into the right internal jugular vein. ANESTHESIA: General endotracheal - Dr. Raquel Orellana. ESTIMATED BLOOD LOSS: Less than 50. DESCRIPTION OF PROCEDURE: After consent was obtained, the patient was brought to the operating room, placed in supine position on the operating table. Appropriate central line and monitors were placed and general endotracheal anesthesia was induced. Chest and neck were prepped and draped in usual sterile fashion. The chest wall was anesthetized and the chest accessed with a needle and guidewire. The PleurX catheter was tunneled from the midclavicular line over to our chest access site. The site was then dilated and a Peel-Away sheath was placed. Catheter was passed through the Peel-Away sheath. A 2 L of fluid was then evacuated from the right chest. The PleurX catheter was capped. Using ultrasound guidance, the right internal jugular vein was accessed. Chest wall was then anesthetized, where we would place the MediPort. A pocket was created. The catheter was tunneled from the pocket up to the guidewire access site. Peel-Away sheath was placed and the catheter passed into the internal jugular vein down into the superior vena cava. This was performed under fluoroscopic guidance. The catheter was connected to the port and the port secured with Prolene suture. The port pocket was then closed and Dermabond was applied to skin. After closing the port site, the port was accessed and there was good aspiration and flow through the port. The patient tolerated the procedure well and was transferred to recovery room in stable condition to be discharged home later today. Job ID: [id number]
[2020-05-08] MEDS ORDERED: Ondansetron PF 4 MG/2 ML Vial ONE (10:33)
[2020-05-08] MEDS ORDERED: PROPOFOL 200 MG/20 ML VIAL ONE (10:33)
== END 2020-05-08 11:00 | disposition home or self-care (01) ==
LOC: SDC 05:57
PROVIDERS: ATTEND Thoracic Surgery (Cardiothoracic Vascular Surgery)
PROC: 02HV33Z Insertion of Infusion Device into Superior Vena Cava, Percutaneous Approach (ICD-10-PCS; principal; 2020-05-08)
PROC: 0JH63XZ Insertion of Tunneled Vascular Access Device into Chest Subcutaneous Tissue and Fascia, Percutaneous Approach (ICD-10-PCS; principal; 2020-05-08)
DX: C77.0 Secondary and unspecified malignant neoplasm of lymph nodes of head, face and neck (principal); C80.1 Malignant (primary) neoplasm, unspecified; J91.0 Malignant pleural effusion; I10 Essential (primary) hypertension; Z79.01 Long term (current) use of anticoagulants; Z79.899 Other long term (current) drug therapy
CPT/HCPCS: C1729; C1788; J0171; J0690; J1642; J2250; J2405; J2704; J7620; S0020

== ENCOUNTER 2020-05-12 11:59 | Inpatient (IN) | payer OTHER ==
[2020-05-12] MEDS ORDERED: diphenhydrAMINE 50 MG/ML VIAL ONE (12:31)
[2020-05-12] MEDS ORDERED: Famotidine/PF 20 mg/2ml Vial ONE (12:31)
[2020-05-12] MEDS ORDERED: Dexamethasone 10 MG/ML VIAL ONE (12:31)
--- NOTE | 2020-05-12 12:46 | RAD ---
XR Chest 1 View Portable History: Face swelling Comparison: CT examination April 26, 2020 Findings: Extensive subcutaneous emphysema. Large right pneumothorax with chronic leftward mediastina l shift. Extensive pneumomediastinum. Port catheter tip projects over the right atrium. Impression: 1. Intact pleural drainage catheter which has removed majority of the pleural fluid without adequate expansion of the right lung creating a large air-filled right pleural cavity. The leftward low-grade mediastinal shift is unchanged since the recent CT examination and is sequela of chronic la rge right pleural effusion. 2. Large right lung cancer. 3. Severe left hemithorax pulmonary metastases. 4. Severe subcutaneous emphysema. Findings were discussed with Della Chiang at 12:41 PM
[2020-05-12 13:03] LABS: #Lymphocytes 0.5 thou/uL (1.20-3.40); #Monocytes 0.3 thou/uL (0.11-0.59); #Neutrophils 3.6 thou/uL (1.40-6.50); %Eosinophils 0.7 % (0.0-10.0); %Monocytes 6.6 % (0.0-10.0); %Neutrophils 81.8 % (42.0-75.0); Hemoglobin 10.4 g/dL (12.0-16.0); Mean Corpuscular Hemoglobin 25.8 pg (27.0-31.0); Mean Corpuscular Volume 80.6 fL (78.0-98.0); Mean Platelet Volume 7.4 fL (7.4-10.4); Platelet Count 307 thou/uL (130-400); RBC Distribution Width 12.6 % (11.5-14.5); Red Blood Cell (RBC) Count 4.01 mill/uL (4.20-5.40); White Blood Cell (WBC) Count 4.4 thou/uL (4.8-10.8)
[2020-05-12 13:24] LABS: ALT (SGPT) 8 U/L (8-55); AST (SGOT) 22 U/L (5-34); Albumin 3.5 g/dL (3.4-4.8); Alkaline Phosphatase 69 U/L (40-110); Anion Gap 13 mmol/L (10-20); BUN (Urea Nitrogen) 15 mg/dL (9.8-20.1); Bilirubin, Total 0.8 mg/dL (0.2-1.2); Calc. Creatinine Clearance 0 mL/min (70-130); Calcium 8.4 mg/dL (7.8-10.44); Carbon Dioxide 27 mmol/L (23-31); Chloride 89 mmol/L (98-107); Globulin 3.1 g/dL (2.4-3.5); Glucose 116 mg/dL (83-110); Potassium 4.4 mmol/L (3.5-5.1); Protein, Total 6.6 g/dL (6.0-8.3); Sodium 125 mmol/L (136-145)
--- NOTE | 2020-05-12 15:45 | PDOC.HHP ---
Hospitalist HPI - History of Present Illness Facial swelling History of Present Illness: Ms. Wolff is a 74-year-old female with a past medical history of stage IV pulmonary adenocarcinoma, hypertension, pulmonary embolism on Xarelto, malignant pleural effusion status post Pleur-evac placement, right knee arthritis who presented to the emergency room for new facial swelling. Over the past few days patient has had pain in her chest wall face and neck which has become acutely swollen. Of note patient had recent Pleur-evac placed on 05/08/2020 for drainage of malignant pleural effusion. Patient currently denies shortness of breath, is able to swallow. She denies chest pain, but endorses chest wall pain on the right side. Patient follows with Dr. Doran of oncology. Was previously on Tagrisso with plans to start Keytruda and chemotherapy. Patient is Mandarin speaking and interview was conducted with medical science liaison and with patient son who helped translate. In emergency room initial vital signs 166/97, 98, 25, 97% on 4 L nasal cannula. Chest x-ray showed large air-space in the pleural cavity, where fluid previously was prior to pleuro-vac. Large lung mass which is compressing lung also seen as well as severe subcutaneous emphysema. Initial troponin 0.016, BUN/Cr 15/0.70. WBC 4.4. H/H 10.4/32.3. Na 125, K 4.4. Patient received 4 mg of morphine in the ER for pain control. ER physician contacted cardiovascular surgery who reviewed chest x-ray and states there is no need for surgical intervention at this time. Hospitalist ROS - Review of Systems Constitutional: denies: fever, chills, sweats, weakness, malaise Eyes: denies: vision change ENT: reports: other (Facial swelling) Respiratory: reports: cough, shortness of breath, pleuritic pain. denies: dry, hemoptysis, SOB with excertion, sputum, wheezing, other Cardiovascular: denies: chest pain, palpitations, orthopnea, paroxysmal noc. dyspnea, edema, light headedness, other Gastrointestinal: denies: nausea, vomiting, abdominal pain, diarrhea, constipation, melena, hematochezia, other Genitourinary: denies: dysuria, frequency, incontinence, hematuria, retention, other Musculoskeletal: denies: neck pain, shoulder pain, arm pain, back pain, hand pain, leg pain, foot pain, other Skin: denies: rash, lesions, di, bruising, other Neurological: denies: weakness, numbness, incoordination, change in speech, confusion, seizures, other - Medication Medications: Home medication list taken from ER records. Xarelto Albuterol Losartan Prednisone Tramadol NKDA Hospitalist History - Past Medical History Other Medical History: Past medical history of Stage IV adenocarcioma of the lung HTN Pulmonary embolism pm Xarelto - Past Surgical History Other Surgical History: Past surgical history includes: Plera-vac & mediport placement Eye surgery 2016 - Family History Other Family History: No family history of cancer. - Social History Smoking Status: Never smoker Alcohol: reports: None Drugs: reports: none Living Situation: With Family Activity level: independent ambulation - Exam General Appearance: NAD, awake alert Eye: PERRL, anicteric sclera ENT - other findings: Crepitus to bilateral cheeks Neck - other findings: Crepitus Heart: RRR, no murmur, no gallops, no rubs, normal peripheral pulses Heart - other findings: Crepitus Respiratory - other findings: No lung sounds on the right, crepitus on chest w all Gastrointestinal: soft, non-tender, non-distended, normal bowel sounds, no palpable masses, no hepatomegaly, no splenomegaly, no bruit Extremities: no cyanosis, no clubbing, no edema Skin: normal turgor, no lesions, no rashes Neurological: cranial nerve grossly intact, normal sensation to touch, no weakness, no focal deficits, no new deficit Musculoskeletal: normal tone, normal strength, no muscle wasting Psychiatric: normal affect, normal behavior, A&O x 3 Hospitalist Results - Labs Result Diagrams: 05/13/20 04:43 05/13/20 04:43 Lab results: WBC 4.4 thou/uL (4.8-10.8) L 05/12/20 12:46 Hgb 10.4 g/dL (12.0-16.0) L 05/12/20 12:46 Hct 32.3 % (36.0-47.0) L 05/12/20 12:46 MCV 80.6 fL (78.0-98.0) 05/12/20 12:46 Plt Count 307 thou/uL (130-400) 05/12/20 12:46 Neutrophils % 81.8 % (42.0-75.0) H 05/12/20 12:46 ESR Westergren 72 mm/hr (Less than 30) H 05/12/20 12:46 Sodium 125 mmol/L (136-145) L 05/12/20 12:46 Potassium 4.4 mmol/L (3.5-5.1) 05/12/20 12:46 Chloride 89 mmol/L (98-107) L 05/12/20 12:46 Carbon Dioxide 27 mmol/L (23-31) 05/12/20 12:46 BUN 15 mg/dL (9.8-20.1) 05/12/20 12:46 Creatinine 0.70 mg/dL (0.6-1.1) 05/12/20 12:46 Glucose 116 mg/dL (83-110) H 05/12/20 12:46 Calcium 8.4 mg/dL (7.8-10.44) 05/12/20 12:46 Total Bilirubin 0.8 mg/dL (0.2-1.2) 05/12/20 12:46 AST 22 U/L (5-34) 05/12/20 12:46 ALT 8 U/L (8-55) 05/12/20 12:46 Alkaline Phosphatase 69 U/L (40-110) 05/12/20 12:46 Troponin I 0.016 ng/mL (< 0.028) 05/12/20 12:46 C-Reactive Protein 1.66 mg/dL (= or < 0.5) H 05/12/20 12:46 Serum Total Protein 6.6 g/dL (6.0-8.3) 05/12/20 12:46 Albumin 3.5 g/dL (3.4-4.8) 05/12/20 12:46 Hospitalist H&P A/P - Plan Plan: Stage IV lung cancer 74-year-old female diagnosed in July 2017 with stage IV metastatic lung cancer adenocarcinoma. Patient follows with Dr. Doran. Patient initially on Tagrisso, however recent plans to start Keytruda and chemotherapy. Patient has had extensive malignant effusions and on 05/08/2020 Pleur-evac catheter and Mediport was placed by Dr. Nelson. Patient has had worsening subcutaneous emphysema since that placement. Chest x-ray showed resolution of malignant effusion, but air in the lung cavity. The right lung is collapsed under a large tumor. Chest x-ray also showed extensive subcutaneous emphysema. Patient has had worsening weakness and worsening of her baseline status and weight loss. At this point patient may not be able to withstand chemotherapy. Discussed poor prognosis with patient and patient's son. At this time patient and son would like to remain full code, however after explaining patient's poor prognosis patient will discuss this with her son further. Will consult oncology and palliative care for additional recommendations. Plan Oncology consult Poor prognosis, family discussion Palliative care consult Subcutaneous emphysema Patient with extensive subcutaneous emphysema. Patient's airway is intact and not compromised. Is on 4 L nasal cannula which is her home level. She is maintaining her oxygen saturation at this time. Patient does endorse discomfort and pain with the subcutaneous emphysema. Pleur-evac is in place and cardiothoracic surgery was contacted by the ED who reported no surgical inter ventions were needed at this time. We will continue with Pleur-evac catheter. Plan -Pain control with morphine Continue home O2 Continue Pleua-vac catheter History of pulmonary embolism Continue home Xarelto Hypertension Continue home antihypertensive medications Anxiety Patient very anxious about her lung cancer and subcutaneous emphysema. Patient is taking a Traditional Turkish Medication for this which she does not know the name of, I asked patient to avoid taking medications from home while in the hospital and that I would make an anxiety medication available to her if needed. DVT prophylaxis: on Xarelto FULL CODE Case discussed with Dr. Hills.
[2020-05-12] MEDS ORDERED: Ondansetron ODT 4 MG TAB PO PRN (16:50)
[2020-05-12] MEDS ORDERED: Ondansetron PF 4 MG/2 ML Vial IVP PRN (16:50)
[2020-05-12] MEDS ORDERED: Acetaminophen 650 MG Suppository PR PRN (16:50)
[2020-05-12] MEDS ORDERED: ALPRAZolam 0.25 MG TAB PO PRN (17:29)
[2020-05-12] MEDS ORDERED: Morphine 2 MG/ML VIAL SLOW IVP PRN (17:30)
--- NOTE | 2020-05-12 17:52 | CON ---
DATE OF CONSULTATION: REASON FOR CONSULT: Lung cancer. HISTORY OF PRESENT ILLNESS: Ms. Wolff is a pleasant 74-year-old female who was diagnosed with right upper lobe non-small cell lung cancer. She had eGFR mutation and was on Tagrisso for several months. She did well until April when she began to have progressive large pleural effusion and development of new left-sided lung nodules. She was to start IV chemotherapy with carboplatin, Alimta, and Keytruda. She underwent MediPort and PleurX catheter placement this past Friday. Today, she presents to the emergency room with shortness of breath and facial swelling. She has subcutaneous air on her upper chest, neck, face, and down her arms bilaterally to her hands. She had a chest x-ray in the emergency room, which showed the intact pleural catheter drainage which had removed the pleural fluid. However, the right lung had not expanded and there was a large air-filled right pleural cavity. She had a low-grade mediastinal shift. She had severe left pneumothorax with pulmonary mets and subcutaneous emphysema. The patient has been oxygen dependent for quite some time and progressively becoming weaker. I spoke with the son on multiple occasions about her very poor prognosis and they have wished to remain aggressive. The patient was seen in the emergency room with her son at bedside. He was used as an impression printer. She is having some difficulty swallowing secondary to edema, but denies pain. PAST MEDICAL HISTORY: 1. Stage IV lung cancer with recent progression. 2. Bilateral pulmonary emboli. 3. Hypertension. PAST SURGICAL HISTORY: 1. MediPort placement. 2. PleurX catheter. 3. Multiple thoracentesis. 4. Eye surgery. ALLERGIES: NO KNOWN DRUG ALLERGIES. HOME MEDICATIONS: 1. Albuterol neb treatments. 2. Dexamethasone. 3. Tramadol. 4. Xarelto. 5. Gabapentin. 6. Losartan. FAMILY HISTORY: No family history of cancer. SOCIAL HISTORY: Single. Has 4 children. Lives with her son. No alcohol, tobacco, or illicit drug use. REVIEW OF SYSTEMS: Positive for shortness of breath, dysphagia, and weakness. PHYSICAL EXAMINATION: VITAL SIGNS: She is afebrile, heart rate is 100, blood pressure was 66/97, she is 98% on 3 L nasal cannula. GENERAL: Ill-appearing female, in no acute distress. HEENT: She has subcutaneous swelling of her entire facial features. CV: Regular rate and rhythm. LUNGS: Absent on the right lower lobe and diminished on the left. ABDOMEN: Soft and nontender. Bowel sounds are positive. EXTREMITIES: She has subcutaneous air on both upper extremities down to her hands. NEUROLOGIC: Nonfocal. PERTINENT LABORATORY DATA AND X-RAYS: Current WBCs are 4.4, hemoglobin 10.4, hematocrit 32.3, platelet count 307,000, 82% neutrophils, 11% lymphocytes. Sodium 125, potassium 4.4, chloride 89, CO2 is 27, BUN is 15, creatinine 0.7, calcium 8.4, bilirubin 0.8, AST is 22, ALT is 8, alkaline phosphatase is 69, serum total protein 6.6, albumin 3.5, globulin 3.1. Radiology, per HPI. ASSESSMENT: 1. Stage IV lung cancer. 2. Recent PleurX catheter placement with poor expansion of lung. 3. Subcutaneous emphysema of chest, neck, face, and bilateral upper extremities. DISCUSSION: Case has been discussed with Dr. Doran and the ER physicians. The patient has progressive disease and extensive subcutaneous air due to nonexpansion of lung. I explained to the son in detail that this is progression of cancer and recommend keeping the patient comfortable with hospice. He has difficulty understanding the severity of his mother's condition and has continued to ask for chemotherapy. Plan will be to admit her and provide supportive care. Will ask palliative care to assist with coping issues. The patient has extremely poor prognosis. Thank you for the consult. Job ID: [id number] [id number]
[2020-05-12 20:36] VITALS: BMI 22.6
[2020-05-12] MEDS ORDERED: Albuterol Sulfate 2.5 mg/3 ml Neb NEB PRN (20:56)
[2020-05-12] MEDS ORDERED: Losartan 25 MG TAB PO SCH (21:45)
[2020-05-13 04:53] LABS: #Lymphocytes 0.4 thou/uL (1.20-3.40); #Monocytes 0.2 thou/uL (0.11-0.59); #Neutrophils 2.9 thou/uL (1.40-6.50); %Eosinophils 1.1 % (0.0-10.0); %Lymphocytes 12.6 % (21.0-51.0); %Monocytes 5.1 % (0.0-10.0); %Neutrophils 81.2 % (42.0-75.0); Hemoglobin 10.8 g/dL (12.0-16.0); Mean Corpuscular HGB CONC 31.4 g/dL (32.0-36.0); Mean Corpuscular Hemoglobin 25.3 pg (27.0-31.0); Mean Corpuscular Volume 80.6 fL (78.0-98.0); Mean Platelet Volume 7.7 fL (7.4-10.4); Platelet Count 305 thou/uL (130-400); RBC Distribution Width 12.7 % (11.5-14.5); Red Blood Cell (RBC) Count 4.25 mill/uL (4.20-5.40); White Blood Cell (WBC) Count 3.5 thou/uL (4.8-10.8)
[2020-05-13 05:13] LABS: Anion Gap 16 mmol/L (10-20); BUN (Urea Nitrogen) 14 mg/dL (9.8-20.1); Calc. Creatinine Clearance 62 mL/min (70-130); Calcium 8.9 mg/dL (7.8-10.44); Carbon Dioxide 22 mmol/L (23-31); Chloride 89 mmol/L (98-107); Glucose 124 mg/dL (83-110); Potassium 4.7 mmol/L (3.5-5.1); Sodium 122 mmol/L (136-145)
[2020-05-13] MEDS: Losartan 25 MG TAB PO SCH (09:00)
[2020-05-13] MEDS ORDERED: Losartan 25 MG TAB PO SCH (09:00)
--- NOTE | 2020-05-13 12:52 | PDOC.MOPN ---
Interval History: Pt still feeling SOB, pain at chest tube insertion site. Very concerned about subcutaneous air. Spoke with son in detail about poor prognosis. - Vital Signs Vital Signs: Vital Signs (12 hours) Temp Pulse Resp BP Pulse Ox 05/13/20 11:59 98.8 F 95 26 H 139/66 99 05/13/20 08:00 99 F 93 18 147/81 H 99 05/13/20 04:00 98 F 92 24 H 158/79 H 98 Weight Weight 112 lb 1.6 oz - Physical Exam General: Alert, Cooperative HEENT: Other (subcutaneous air over left eye and unable to fully open eyelid) Lungs: Other (crackles from subcutaneous air over chest, decreased sounds over right lung field) Cardiovascular: Regular rate Abdomen: No tenderness Extremities: Other (subcutaneous air B/L UE including hands) Skin: No rashes Neurological: Cranial nerves 3-12 NL - Labs Result Diagrams: 05/13/20 04:43 05/13/20 04:43 Lab results: Laboratory Results - last 24 hr 05/13/20 04:43: WBC 3.5 L, RBC 4.25, Hgb 10.8 L, Hct 34.2 L, MCV 80.6, MCH 25.3 L, MCHC 31.4 L, RDW 12.7, Plt Count 305, MPV 7.7, Neutrophils % 81.2 H, Lymph ocytes % 12.6 L, Monocytes % 5.1, Eosinophils % 1.1, Basophils % 0.0, Neutrophils # 2.9, Lymphocytes # 0.4 L, Monocytes # 0.2, Eosinophils # 0.0, Basophils # 0.0 05/13/20 04:43: Sodium 122 L, Potassium 4.7, Chloride 89 L, Carbon Dioxide 22 L, Anion Gap 16, BUN 14, Creatinine 0.63, Estimated GFR (MDRD) Greater than 90, Glucose 124 H, Calcium 8.9 05/12/20 12:46: Troponin I 0.016 05/12/20 12:46: WBC 4.4 L, RBC 4.01 L, Hgb 10.4 L, Hct 32.3 L, MCV 80.6, MCH 25.8 L, MCHC 32.0, RDW 12.6, Plt Count 307, MPV 7.4, Neutrophils % 81.8 H, Lymphocytes % 11.0 L, Monocytes % 6.6, Eosinophils % 0.7, Basophils % 0.0, Neutrophils # 3.6, Lymphocytes # 0.5 L, Monocytes # 0.3, Eosinophils # 0.0, Basophils # 0.0 05/12/20 12:46: ESR Westergren 72 H 05/12/20 12:46: C-Reactive Protein 1.66 H 05/12/20 12:46: Sodium 125 L, Potassium 4.4, Chloride 89 L, Carbon Dioxide 27, Anion Gap 13, BUN 15, Creatinine 0.70, Estimated GFR (MDRD) 82, Glucose 116 H, Calcium 8.4, Total Bilirubin 0.8, AST 22, ALT 8, Alkaline Phosphatase 69, Serum Total Protein 6.6, Albumin 3.5, Globulin 3.1, Albumin/Globulin Ratio 1.1 L A/P - Problem (1) Malignant pleural effusion Current Visit: No Code(s): J91.0 - MALIGNANT PLEURAL EFFUSION Status: Acute - Plan Plan: Metastatic adenocarcinoma of lung, malignant pleural effusion, chest tube, subcutaneous air, PTX I d/w son his mother's poor prognosis. She had very aggressive, refractory, NSCLC and very symptomatic from pleural effusion. She failed oral Tagrisso and was planned to start Chemo + Keytruda but has a poor PS 2/2 disease and is currently not a candidate for this therapy, especially with current PTX/chest- tube requirement. This is not small cell and so will not respond quickly and likely only a response rate of 50%. I do not believe her PS will improve enough to tolerate treatment, she can only walk a few steps and is very winded and with tachycardia. I advised the son to consider hospice but he still wants aggressive treatment. He mentioned transfer to [facility] but I do not think they would be able to offer anything further. Will cont to monitor for improvement. Palliative care to see patient.
--- NOTE | 2020-05-13 13:10 | RAD ---
PORTABLE CHEST 1 VIEW: Date: 05/13/2020 Time: 1247 hours HISTORY: Chest tube to suction. FINDINGS: There appears to have been repositioning of the right chest tube since the previous day's exam with t he tip laterally in the right upper hemithorax. There also appears to be improvement in the right-jose ed pleural effusion. The right-sided pneumothorax seen on chest CT from earlier today cannot be satis factorily evaluated due to extensive subcutaneous emphysema. Right hilar/perihilar mass and right Por t-A-Cath are again seen. POS: OFF
--- NOTE | 2020-05-13 13:16 | CON ---
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 She recently had a PleurX catheter placed and had presentation to the ER yesterday with subcutaneous emphysema and a large pneumothorax. She has been followed by Oncology and is undergoing treatment for her disease currently. Additional medical problems include history of pulmonary embolism, hypertension, and a previously noted malignant effusion requiring a PleurX catheter. On examination, she is a small-statured lady, sitting in the chair with significant subcutaneous emphysema of the face and eyes such that she is barely able to open her eyes. I connected her PleurX catheter to a chest tube, and it had a large air leak, that then decreased substantially and the chest x-ray is pending, and at least for the time being, we will leave her PleurX catheter to suction. It was originally drained this morning by the nursing staff and no fluid was removed, but they did note exit of air. Job ID: [id number]
--- NOTE | 2020-05-13 13:17 | CT ---
CT CHEST WITHOUT CONTRAST: Date: 05/13/2020 HISTORY: Pneumothorax and subcutaneous emphysema. Shortness of breath. Lung cancer with mets. COMPARISON: 04/26/2020. FINDINGS: Absence of IV contrast reduces the sensitivity of exam, particularly for evaluation of mediastinal, h ilar, and vascular structures. Right suprahilar mass has increased in size, measuring about 7.0 cm in AP dimension. There is a moder ate sized right pleural effusion. A right-sided chest tube is present. A right-sided hydropneumothora x is noted with a moderate to large right pneumothorax. Numerous solid pulmonary nodules are seen in the lung parenchyma bilaterally. There is extensive subcutaneous emphysema in the chest wall and ther e is extensive pneumomediastinum. No definite left-sided pneumothorax is seen. No pericardial effusio n or left pleural effusion is noted. Tip of the right-sided chest tube is within the pleural fluid. IMPRESSION: Extensive subcutaneous emphysema, pneumomediastinum, right hydropneumothorax, and bilateral pulmonary metastases, with interval increase in size of the right suprahilar mass since 04/26/2020. POS: OFF
--- NOTE | 2020-05-13 14:01 | PDOC.HOSPP ---
- Subjective Encounter Date: 05/13/20 Encounter Time: 11:00 Subjective: son at bedside is concerned about increasing subcut air now covering her face, eyes, neck and upper extremities patient is not sob and is saturating well, she is sitting in chair - Objective Vital Signs & Weight: Vital Signs (12 hours) Temp Pulse Resp BP Pulse Ox 05/13/20 12:40 96 24 H 05/13/20 11:59 98.8 F 95 26 H 139/66 99 05/13/20 08:00 99 F 93 18 147/81 H 99 05/13/20 04:00 98 F 92 24 H 158/79 H 98 Weight Weight 112 lb 1.6 oz I&O: 05/12/20 05/13/20 05/14/20 06:59 06:59 06:59 Intake Total 200 Balance 200 Result Diagrams: 05/13/20 04:43 05/13/20 04:43 Hospitalist ROS - Medication Medications: Active Medications Generic Name Dose Route Start Last Admin Trade Name Freq PRN Reason Stop Dose Admin Albuterol/Ipratropium 3 ml 05/13/20 13:00 05/13/20 12:40 Ipratropium/Albuterol Sulfate 3 Ml Neb NEB 3 ml [id number] ELAINE Administration - Exam General Appearance: awake alert, ill appearing Eye: PERRL, anicteric sclera ENT: no oropharyngeal lesions, dry oral mucosa Neck: no JVD Heart: RRR, no murmur Respiratory: no wheezes Respiratory - other findings: decreased air entry right hemithorax Gastrointestinal: soft, non-tender, non-distended, normal bowel sounds Extremities: no cyanosis, no edema Skin - other findings: Has extensive subcut emphysema Neurological: cranial nerve grossly intact, no focal deficits Psychiatric: normal affect, A&O x 3 Hosp A/P (1) Subcutaneous emphysema Code(s): T79.7XXA - TRAUMATIC SUBCUTANEOUS EMPHYSEMA, INITIAL ENCOUNTER Status: Acute Qualifiers: Encounter type: subsequent encounter Qualified Code(s): T79.7XXD - Traumatic subcutaneous emphysema, subsequent encounter (2) Malignant pleural effusion Code(s): J91.0 - MALIGNANT PLEURAL EFFUSION Status: Chronic (3) Shortness of breath Code(s): R06.02 - SHORTNESS OF BREATH Status: Chronic (4) History of lung cancer Code(s): Z85.118 - PERSONAL HISTORY OF MALIGNANT NEOPLASM OF BRONCHUS AND LUNG Status: Chronic (5) History of pulmonary embolism Code(s): Z86.711 - PERSONAL HISTORY OF PULMONARY EMBOLISM Status: Chronic (6) Hypertension Code(s): I10 - ESSENTIAL (PRIMARY) HYPERTENSION Status: Chronic Qualifiers: Hypertension type: essential hypertension Qualified Code(s): I10 - Essential (primary) hypertension - Plan d/w , has pleyryx cath connected to underwater seal CT chest results noted poor prognosis with h/o 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
[2020-05-13] MEDS: traMADol HCl 50 MG TAB PO PRN (20:57)
--- NOTE | 2020-05-14 05:46 | PRG ---
DATE OF SERVICE: This morning, she continues to have an air leak from her suction, although the chest tube suction was minimal this morning and increased by myself. Her facial swelling seems to be improved and she is breathing comfortably and we will discontinue the suction for now. She had somewhat subcutaneous tissue with air on her x-ray yesterday that it was difficult to tell how much of her lung expanded, but it appeared that her lower lobe had improved, perhaps her mediastinum, it shifted a bit and her upper lobe had changed positions, although does have probable postobstructive atelectasis. Job ID: [id number]
[2020-05-14 06:07] LABS: #Lymphocytes 0.8 thou/uL (1.20-3.40); #Monocytes 0.4 thou/uL (0.11-0.59); #Neutrophils 4.2 thou/uL (1.40-6.50); %Basophils 0.2 % (0.0-1.0); %Eosinophils 0.8 % (0.0-10.0); %Lymphocytes 14.3 % (21.0-51.0); %Monocytes 8.1 % (0.0-10.0); %Neutrophils 76.6 % (42.0-75.0); Hemoglobin 10.7 g/dL (12.0-16.0); Mean Corpuscular HGB CONC 31.6 g/dL (32.0-36.0); Mean Corpuscular Hemoglobin 25.6 pg (27.0-31.0); Mean Corpuscular Volume 81.1 fL (78.0-98.0); Mean Platelet Volume 7.1 fL (7.4-10.4); Platelet Count 363 thou/uL (130-400); RBC Distribution Width 12.8 % (11.5-14.5); Red Blood Cell (RBC) Count 4.18 mill/uL (4.20-5.40); White Blood Cell (WBC) Count 5.5 thou/uL (4.8-10.8)
[2020-05-14 06:28] LABS: Anion Gap 13 mmol/L (10-20); BUN (Urea Nitrogen) 22 mg/dL (9.8-20.1); Calc. Creatinine Clearance 59 mL/min (70-130); Calcium 8.4 mg/dL (7.8-10.44); Carbon Dioxide 25 mmol/L (23-31); Chloride 89 mmol/L (98-107); Glucose 125 mg/dL (83-110); Potassium 4.3 mmol/L (3.5-5.1); Sodium 123 mmol/L (136-145)
[2020-05-14] MEDS: Losartan 25 MG TAB PO SCH (09:00)
[2020-05-14] MEDS: traMADol HCl 50 MG TAB PO PRN (10:25)
--- NOTE | 2020-05-14 10:29 | CON ---
DATE OF CONSULTATION: 05/14/2020 SUBJECTIVE: Ms. Wolff is a 74-year-old Ethiopian female with known history of non-small cell lung cancer and recently admitted due to pneumothorax and subcutaneous emphysema. The patient has been previously treated for her lung cancer, Tagrisso, however, the lung cancer has been noted to be progressive. We are now being consulted for her hypo H white p.o. hyponatremia. REVIEW OF SYSTEMS: Positive for facial swelling, mild shortness of breath. No chest pain. No syncopal episode. No productive cough. No fever or chills. No diarrhea. No constipation. No dysuria. No urinary frequency. No abdominal pain. No fever or chills. MEDICATIONS: The patient is currently on; 1. Acetaminophen 650 mg q.4 p.r.n. 2. Xanax 0.25 mg p.o. t.i.d. p.r.n. 3. Tessalon 100 mg p.o. t.i.d. p.r.n. 4. DuoNeb. 5. Losartan 25 mg once a day. 6. Morphine 2 mg IV q.4 p.r.n. 7. Zofran p.r.n. PAST MEDICAL HISTORY: 1. Non-small cell lung cancer with METS. 2. Hypertension. PAST SURGICAL HISTORY: Status post multiple thoracentesis, status post chest tube placement, status post lung biopsy in July 2013, and status post bilateral cataract surgery. SOCIAL HISTORY: The patient is originally from [place] and lives with her son since 2018. She is , 4 children. Lives in [place]. No smoking. 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 No IV drug abuse. No blood transfusion. ALLERGIES: NONE. TRAUMA: None. IMMUNIZATIONS: Up-to-date. HOSPITALIZATIONS: Please see past medical history. FAMILY HISTORY: No family history of ESRD. PHYSICAL EXAMINATION: VITAL SIGNS: Blood pressure 108/66, heart rate 98, respiratory rate 18, temperature 97.9, and O2 saturation 100%. GENERAL: The patient is awake, sitting comfortable, not in distress. SKIN: Adequate turgor. HEENT: Pinkish conjunctivae. Anicteric sclerae. NECK: No neck mass. No carotid bruits. Positive for facial swelling. LUNGS: Decreased breath sounds. CHEST: Positive for chest tube. HEART: Normal sinus rhythm. No murmurs. No gallops. No rubs. ABDOMEN: Globular, soft, and nontender. No masses. EXTREMITIES: Positive for trace edema. NEUROLOGICAL: Awake and oriented to 3 spheres. Moving all extremities. No tremors. No asterixis. No ataxia. LABORATORY STUDIES: On May 13, 2020, chest x-ray shows extensive subcutaneous emphysema, right hilar/perihilar mass. CT of the chest, extensive subcutaneous pulmonary emphysema, pneumomediastinum, right hydropneumothorax and bilateral pulmonary METS with increase in size of the right suprahilar mass. On May 14, 2020; white count 5.5, hemoglobin 10.7. Sodium 123, potassium 4.3, chloride 89, carbon dioxide 25, BUN 22, and creatinine 0.66. Further review of the serum sodium shows the following; on May 12, 2020, sodium was 125. On May 13, sodium was 122. On May 01, sodium 134. On April 05, 2020, sodium 136. ASSESSMENT AND PLAN: 1. Hyponatremia with history of progressive lung cancer, consider the possibility of syndrome of inappropriate antidiuretic hormone secretion. I do not think she is volume depleted since she is noted to be on exam euvolemic and has some trace bilateral pitting edema. However urine chemistries are to be ordered to also rule out hypovolemic hyponatremia. I have initially placed this patient on free water restriction of 1 L per day. No hypertonic saline for the moment. We will continue to observe on this conservative management. We will be ordering urine chemistries, urinalysis, cortisol, TSH, and uric acid to help determine the etiology of her hyponatremia. 2. Metastatic lung cancer - the feeling by the Oncology Service is the patient may need palliative care or hospice. She is not a candidate for any active chemotherapy for the moment. Thank you for the consult. We will continue to follow. We will recheck urinalysis, urine sodium, urine creatinine. Job ID: [id number] [facility]
--- NOTE | 2020-05-14 11:34 | PDOC.MOPN ---
Interval History: Pt feeling better today, less SOB. Appetite slightly improved. No new complaints. Translation provided by her son. - Vital Signs Vital Signs: Vital Signs (12 hours) Temp Pulse Resp BP BP Pulse Ox 05/14/20 08:00 97.9 F 98 18 108/66 100 05/14/20 06:37 100 05/14/20 06:25 96 16 05/14/20 04:00 98.9 F 99 16 109/62 100 05/14/20 00:52 100 05/14/20 00:42 74 18 100 05/13/20 23:59 99.0 F 97 16 111/77 100 Weight Weight 112 lb 1.6 oz - Physical Exam General: Alert, Cooperative HEENT: Other (left eye swelling/emphysema much improved, able to fully open eyelid) Lungs: Other (diffuse crackles consistent with subcutaneous emphysema) Cardiovascular: Regular rate Extremities: Other (mild LE edema) Neurological: Cranial nerves 3-12 NL - Labs Result Diagrams: 05/14/20 05:55 05/14/20 05:55 Lab results: Laboratory Results - last 24 hr 05/14/20 07:46: B-Natriuretic Peptide 38.7 05/14/20 07:46: TSH 3rd Generation 2.7961 05/14/20 05:55: WBC 5.5, RBC 4.18 L, Hgb 10.7 L, Hct 33.9 L, MCV 81.1, MCH 25.6 L, MCHC 31.6 L, RDW 12.8, Plt Count 363, MPV 7.1 L, Neutrophils % 76.6 H, Lympho cytes % 14.3 L, Monocytes % 8.1, Eosinophils % 0.8, Basophils % 0.2, Neutrophils # 4.2, Lymphocytes # 0.8 L, Monocytes # 0.4, Eosinophils # 0.0, Basophils # 0.0 05/14/20 05:55: Sodium 123 L, Potassium 4.3, Chloride 89 L, Carbon Dioxide 25, Anion Gap 13, BUN 22 H, Creatinine 0.66, Estimated GFR (MDRD) 87, Glucose 125 H, Calcium 8.4 A/P - Problem (1) Malignant pleural effusion Current Visit: No Code(s): J91.0 - MALIGNANT PLEURAL EFFUSION Status: Chronic - Plan Plan: SOB and subq emphysema improved slightly today. She appears less ill compared to yesterday. cont chest-tube drainage and monitor for improvement not a candidate for chemotherapy at this time, may change if she continues to improve - son wants to remain aggressive in her treatment f/u palliative care c/s hyponatremia tx as per Dr. Brown -- poor prognosis
--- NOTE | 2020-05-14 11:43 | PDOC.HOSPP ---
- Subjective Encounter Date: 05/14/20 Encounter Time: 11:00 Subjective: awake, no sob, is sitting in chair, son at bedside is hungry, wants to eat - Objective Vital Signs & Weight: Vital Signs (12 hours) Temp Pulse Resp BP BP Pulse Ox 05/14/20 08:00 97.9 F 98 18 108/66 100 05/14/20 06:37 100 05/14/20 06:25 96 16 05/14/20 04:00 98.9 F 99 16 109/62 100 05/14/20 00:52 100 05/14/20 00:42 74 18 100 05/13/20 23:59 99.0 F 97 16 111/77 100 Weight Weight 112 lb 1.6 oz I&O: 05/13/20 05/14/20 05/15/20 06:59 06:59 06:59 Intake Total 200 200 Output Total 500 Balance 200 -300 Result Diagrams: 05/14/20 05:55 05/14/20 05:55 Hospitalist ROS - Medication Medications: Active Medications Generic Name Dose Route Start Last Admin Trade Name Freq PRN Reason Stop Dose Admin Albuterol/Ipratropium 3 ml 05/13/20 13:00 05/14/20 06:25 Ipratropium/Albuterol Sulfate 3 Ml Neb NEB 3 ml [id number] ELAINE Administration Losartan Potassium 25 mg 05/13/20 09:00 05/14/20 09:00 Losartan 25 Mg Tab PO Not Given DAILY ELAINE Tramadol HCl 50 mg 05/13/20 06:52 05/14/20 10:25 Tramadol Hcl 50 Mg Tab PO 50 mg Q6HR PRN Administration Moderate to Severe Pain (6-10) - Exam General Appearance: awake alert Eye: PERRL, anicteric sclera ENT: no oropharyngeal lesions, moist mucosa Neck: supple, no JVD Heart: RRR, no murmur Respiratory: no wheezes, no ronchi Respiratory - other findings: pleuryx cath+ Gastrointestinal: soft, non-tender, non-distended, normal bowel sounds Extremities: no cyanosis, 1+ LE edema Neurological: cranial nerve grossly intact, no focal deficits Hosp A/P (1) Subcutaneous emphysema Code(s): T79.7XXA - TRAUMATIC SUBCUTANEOUS EMPHYSEMA, INITIAL ENCOUNTER Status: Acute Qualifiers: Encounter type: subsequent encounter Qualified Code(s): T79.7XXD - Traumatic subcutaneous emphysema, subsequent encounter (2) Malignant pleural effusion Code(s): J91.0 - MALIGNANT PLEURAL EFFUSION Status: Chronic (3) Shortness of breath Code(s): R06.02 - SHORTNESS OF BREATH Status: Chronic (4) History of lung cancer Code(s): Z85.118 - PERSONAL HISTORY OF MALIGNANT NEOPLASM OF BRONCHUS AND LUNG Status: Chronic (5) History of pulmonary embolism Code(s): Z86.711 - PERSONAL HISTORY OF PULMONARY EMBOLISM Status: Chronic (6) Hypertension Code(s): I10 - ESSENTIAL (PRIMARY) HYPERTENSION Status: Chronic Qualifiers: Hypertension type: essential hypertension Qualified Code(s): I10 - Essential (primary) hypertension - Plan is feeling well this morning, most of her sub cut emphysema from face and upper extremity is resolving has pleuryx cath connected to underwater seal poor prognosis with h/o 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
[2020-05-14 17:12] LABS: Bacteria/HPF None Seen HPF (None Seen); Bilirubin Negative (Negative); Calcium Oxalate Crystals Rare HPF (None Seen); Clarity Clear (Clear); Glucose, Urine (Dipstick) Normal (Negative); Ketone, Urine Negative (Negative); Leukocyte 75 Leu/uL (Negative); Mucous/LPF 2+ LPF (<2+); Nitrite Negative (Negative); Protein, Urine (Dipstick) 30 mg/dL (Neg-Trace); Specific Gravity, Urine 1.028 (1.002-1.036); Squamous Epithelial 0-3 HPF (0-3); Urobilinogen Normal mg/dL (Less than 2)
[2020-05-14 17:16] LABS: Blood, Urine Negative (Negative)
[2020-05-15 06:15] LABS: #Eosinphils 0.1 thou/uL (0.0-0.7); #Lymphocytes 0.7 thou/uL (1.20-3.40); #Monocytes 0.4 thou/uL (0.11-0.59); #Neutrophils 4.8 thou/uL (1.40-6.50); %Basophils 0.1 % (0.0-1.0); %Eosinophils 0.9 % (0.0-10.0); %Monocytes 7.3 % (0.0-10.0); %Neutrophils 79.7 % (42.0-75.0); Hemoglobin 10.5 g/dL (12.0-16.0); Mean Corpuscular HGB CONC 31.3 g/dL (32.0-36.0); Mean Corpuscular Hemoglobin 25.1 pg (27.0-31.0); Mean Corpuscular Volume 80.3 fL (78.0-98.0); Mean Platelet Volume 7.1 fL (7.4-10.4); Platelet Count 308 thou/uL (130-400); RBC Distribution Width 12.8 % (11.5-14.5); Red Blood Cell (RBC) Count 4.18 mill/uL (4.20-5.40)
[2020-05-15 06:34] LABS: Anion Gap 16 mmol/L (10-20); BUN (Urea Nitrogen) 22 mg/dL (9.8-20.1); Calc. Creatinine Clearance 62 mL/min (70-130); Calcium 8.4 mg/dL (7.8-10.44); Carbon Dioxide 25 mmol/L (23-31); Chloride 85 mmol/L (98-107); Glucose 113 mg/dL (83-110); Potassium 4.2 mmol/L (3.5-5.1); Sodium 122 mmol/L (136-145)
--- NOTE | 2020-05-15 07:44 | RAD ---
XR Chest 1 View Portable History: Pneumothorax Comparison: Radiograph 2 days prior Findings: Right thoracostomy tube is in a similar location. Mild improved right lung aeration. Contin ued right apical pneumothorax although poorly visualized due to the extensive subcutaneous emphysema. Right upper lobe mass is similar. Impression: Similar examination of the chest with mild-moderate right pneumothorax.
--- NOTE | 2020-05-15 08:56 | PRG ---
DATE OF SERVICE: 05/15/2020 SUBJECTIVE: Ms. Wolff is a 74-year-old Azeri female with known history of lung cancer, metastatic, and seen for her hyponatremia. Initially, we felt that this was related to SIADH. However, several testing was done. Her urine sodium and fractional excretion of sodium were noted to be decreased. In addition, the urinalysis showed a very concentrated urine with a specific gravity of 1.028. Our plan is to empirically volume replete her with normal saline at 100 mL an hour. No indication for any hypertonic saline. Her mentation is quite stable. The patient denies any chest pain or shortness of breath. OBJECTIVE: VITAL SIGNS: Blood pressure 129/67, heart rate 97, respiratory rate 16, temperature 97.8, O2 saturation is 100%. GENERAL: The patient is awake, alert, comfortable, not in distress. SKIN: Adequate turgor. HEENT: Pinkish conjunctivae. Anicteric sclerae. No neck mass. No carotid bruits. No JVD. Positive for facial puffiness. LUNGS: Clear breath sounds. No wheezing. No crackles. HEART: Normal sinus rhythm. No murmur. No gallops. No rubs. ABDOMEN: Globular, soft, nontender. No masses. EXTREMITIES: Trace edema. No deformities. MEDICATIONS: Medications of May 15, 2020, were reviewed. LABORATORY DATA: Laboratories of May 14, 2020, urine creatinine 146.39. Urine sodium less than 20. Urine osmolality 783. Urinalysis, specific gravity is 1.028 with protein of 30. On May 15, 2020 sodium 122, potassium 4.2, chloride 85, carbon dioxide 25, BUN 22, creatinine 0.63, calcium 8.4. TSH 2.8. Cortisol level 13.6. The beta-natriuretic peptide is 38.7. Uric acid is 3.9. On May 15, 2020, chest x-ray showed moderate right pneumothorax, improved aeration, right upper lobe mass. ASSESSMENT AND PLAN: 1. Hyponatremia-consider hypovolemic hyponatremia-empiric volume repletion, normal saline 100 mL/hour. Recheck base met at 6 p.m. today. If no significant improvement, we probably will change it to hypertonic saline 1.5% sodium chloride. Continue free water restriction of 1 L per day. a. Holding off tolvaptan to see if she will respond with normal saline initially. 2. Lung cancer with metastatic lesions-supportive care. Oncology is following. Overall, prognosis remains guarded. Job ID: [id number]
[2020-05-15] MEDS: Losartan 25 MG TAB PO SCH (09:00)
[2020-05-15] MEDS: Sodium Chloride 0.9% 1,000 ML IV SCH ×3 (10:26→21:08)
--- NOTE | 2020-05-15 13:11 | PDOC.HOSPP ---
- Subjective Encounter Date: 05/15/20 Encounter Time: 12:00 Subjective: awake, sitting in chair, not in distress has ambulated with PT in the room son at bedside - Objective Vital Signs & Weight: Vital Signs (12 hours) Temp Pulse Resp BP Pulse Ox Pulse Ox Pulse Ox 05/15/20 13:05 96 32 H 05/15/20 12:00 98.4 F 98 18 106/66 100 05/15/20 10:20 100 100 05/15/20 08:00 98.6 F 98 18 110/66 100 05/15/20 06:18 97 20 05/15/20 03:48 97.8 F 97 16 129/67 100 Weight Admit Weight 112 lb 1.6 oz Weight 112 lb 1.6 oz I&O: 05/14/20 05/15/20 05/16/20 06:59 06:59 06:59 Intake Total 200 60 Output Total 500 350 Balance -300 -290 Result Diagrams: 05/15/20 05:54 05/15/20 05:54 Hospitalist ROS - Medication Medications: Active Medications Generic Name Dose Route Start Last Admin Trade Name Freq PRN Reason Stop Dose Admin Albuterol/Ipratropium 3 ml 05/13/20 13:00 05/15/20 13:05 Ipratropium/Albuterol Sulfate 3 Ml Neb NEB 3 ml [id number] ELAINE Administration Sodium Chloride 1,000 mls @ 100 mls/hr 05/15/20 08:30 05/15/20 10:26 Normal Saline 0.9% IV 1,000 mls .Q10H ELAINE Administration Losartan Potassium 25 mg 05/13/20 09:00 05/15/20 09:00 Losartan 25 Mg Tab PO Not Given DAILY ELAINE Tramadol HCl 50 mg 05/13/20 06:52 05/14/20 10:25 Tramadol Hcl 50 Mg Tab PO 50 mg Q6HR PRN Administration Moderate to Severe Pain (6-10) - Exam General Appearance: awake alert Eye: PERRL, anicteric sclera ENT: no oropharyngeal lesions, moist mucosa Neck: supple, no JVD Heart: RRR, no murmur Respiratory: no wheezes, no rales Gastrointestinal: soft, non-tender, non-distended, normal bowel sounds Extremities: no cyanosis, 1+ LE edema Neurological: cranial nerve grossly intact, no focal deficits Psychiatric: normal affect, A&O x 3 Hosp A/P (1) Subcutaneous emphysema Code(s): T79.7XXA - TRAUMATIC SUBCUTANEOUS EMPHYSEMA, INITIAL ENCOUNTER Status: Acute Qualifiers: Encounter type: subsequent encounter Qualified Code(s): T79.7XXD - Traumatic subcutaneous emphysema, subsequent encounter (2) Malignant pleural effusion Code(s): J91.0 - MALIGNANT PLEURAL EFFUSION Status: Chronic (3) Shortness of breath Code(s): R06.02 - SHORTNESS OF BREATH Status: Chronic (4) History of lung cancer Code(s): Z85.118 - PERSONAL HISTORY OF MALIGNANT NEOPLASM OF BRONCHUS AND LUNG Status: Chronic (5) History of pulmonary embolism Code(s): Z86.711 - PERSONAL HISTORY OF PULMONARY EMBOLISM Status: Chronic (6) Hypertension Code(s): I10 - ESSENTIAL (PRIMARY) HYPERTENSION Status: Chronic Qualifiers: Hypertension type: essential hypertension Qualified Code(s): I10 - Essential (primary) hypertension - Plan most of her sub cut emphysema from face and upper extremity is resolving has pleuryx cath connected to underwater seal poor prognosis with h/o nonsmall cell lung cancer with eGFR mutation was initially on Tegrisso then from april on carboplatin, alimta and keytruda continue nebs, cozaar, xanax, morphine d/w son at bedside will add megace to stimulate appetite along with ensure cans rowdy hose to lower extremities for edema
--- NOTE | 2020-05-15 13:48 | PDOC.PALCO ---
Palliative Care Consult - Consult Details Requesting Physician: Logan TORRES / Hospitalist group Reason for Consult: goals of care, advance directives assistance, complex decision-making Family Members Present: Patient son - Pertinent HPI 74 year old female with a past history of Stage IV pulmonary adenocarcinoma with malignant pleural effusion post plurex placement. Onset of facial swelling and right chest wall. Plurex placed 05/08 for drainage of pleural effusion. Patient of Dr Doran, to transition to [facility]. Radiology showed resolution of malignant effusion, however worsening subcutaneous emphysema. Right lung collapsed from large tumor. It is uncertain that patient can withstand further chemo therapy. Patient previously lived in [place] and recently moved to live with her son a year and a half ago. Total of four children, the other three live out of the country. - Pertinent PMH Lung cancer, Pulmonary embolism, HTN - Social History Smoking Status: Never smoker Smoking: no tobacco exposure Alcohol Use: none Drug Use History: none Living Situation: other (Lives with her son) - Medications MAR Reviewed: Yes - Allergies Allergies/Adverse Reactions: Allergies Allergy/AdvReac Type Severity Reaction Status Date / Time No Known Allergies Allergy Verified 05/12/20 20:32 - ROS Constitutional: alert, weakness Eyes: other ENT: other (Denies difficulity swallowing) Respiratory: shortness of breath Cardiology: edema, other (Denies chest pain at time of assessment) Gastrointestinal: other (Denies nausea or vomiting) - Objective Vital Signs: Vital Signs - Most Recent Temp Pulse Resp BP Pulse Ox 98.4 F 96 32 H 106/66 100 05/15/20 12:00 05/15/20 13:05 05/15/20 13:05 05/15/20 12:00 05/15/20 12:00 Palliative Performance Scale: 40 - Physical Exam Constitutional: ill appearing HEENT: EOMI, moist MMs, sclera anicteric Respiratory: diminished lung sound, labored respirations Gastrointestinal: soft, non-tender Genitourinary: continent Musculoskeletal: no cyanosis, edema present Neurology: moves all 4 limbs, no focal deficits Skin: cap refill <2 seconds Psychiatric: A&O x 3, normal mood - Problem List (1) Palliative care encounter Code(s): Z51.5 - ENCOUNTER FOR PALLIATIVE CARE Current Visit: Yes Status: Acute (2) Subcutaneous emphysema Code(s): T79.7XXA - TRAUMATIC SUBCUTANEOUS EMPHYSEMA, INITIAL ENCOUNTER Curren t Visit: Yes Status: Acute Qualifiers: Encounter type: subsequent encounter Qualified Code(s): T79.7XXD - Traumatic subcutaneous emphysema, subsequent encounter (3) History of lung cancer Code(s): Z85.118 - PERSONAL HISTORY OF MALIGNANT NEOPLASM OF BRONCHUS AND LUNG Current Visit: No Status: Chronic (4) Malignant pleural effusion Code(s): J91.0 - MALIGNANT PLEURAL EFFUSION Current Visit: No Status: Chronic - Plan/Recommendations Plan: Son facilitated communication with patient. Short life review. He states Ms Wolff has always been "busy" and "doing things". She enjoys gardening, cooking, caring for others. Discussed current illness and poor prognosis. He relayed they are "hopeful". *We discussed reconsideration of resuscitation status, that it may case harm not care. Palliative Care will revisit 05/16/2020 *Discussed limited options and concern of Ms Wolff not being able to begin Keytruda. Revisited need for plurex drain and lung mass. *Will further discuss disease trajectory and revisit goal of care 05/16/2020. Please also refer to Palliative Care notes in note section. [] minutes spent on this encounter with >50% of the time in counseling and coordination of care. Thank you for this very appropriate consult.
--- NOTE | 2020-05-15 13:51 | PDOC.MOPN ---
Interval History: sitting in chair, son states working with physical therapy today. - Vital Signs Vital Signs: Vital Signs (12 hours) Temp Pulse Resp BP Pulse Ox Pulse Ox Pulse Ox 05/15/20 13:05 96 32 H 05/15/20 12:00 98.4 F 98 18 106/66 100 05/15/20 10:20 100 100 05/15/20 08:00 98.6 F 98 18 110/66 100 05/15/20 06:18 97 20 05/15/20 03:48 97.8 F 97 16 129/67 100 Weight Admit Weight 112 lb 1.6 oz Weight 112 lb 1.6 oz - Physical Exam General: Alert Lungs: Other (diminished RUL) Cardiovascular: Regular rate Abdomen: Normal bowel sounds Extremities: Other (BLE edema 1+) Neurological: Normal speech - Labs Result Diagrams: 05/15/20 05:54 05/16/20 04:11 Lab results: Laboratory Results - last 24 hr 05/15/20 05:54: WBC 6.0, RBC 4.18 L, Hgb 10.5 L, Hct 33.5 L, MCV 80.3, MCH 25.1 L, MCHC 31.3 L, RDW 12.8, Plt Count 308, MPV 7.1 L, Neutrophils % 79.7 H, Lymphocytes % 12.0 L, Monocytes % 7.3, Eosinophils % 0.9, Basophils % 0.1, Neutrophils # 4.8, Lymphocytes # 0.7 L, Monocytes # 0.4, Eosinophils # 0.1, Basophils # 0.0 05/15/20 05:54: Sodium 122 L, Potassium 4.2, Chloride 85 L, Carbon Dioxide 25, Anion Gap 16, BUN 22 H, Creatinine 0.63, Estimated GFR (MDRD) Greater than 90, Glucose 113 H, Calcium 8.4 05/14/20 16:45: Urine Creatinine 146.39 H 05/14/20 16:45: Urine Sodium Less than 20 05/14/20 16:45: Urine Osmolality 783 05/14/20 16:45: Urine Color Yellow, Urine Clarity Clear, Urine pH 6.0, Ur Specific [place] 1.028, Urine Protein 30 A, Urine Glucose (UA) Normal, Urine Ketones Negative, Urine Blood Negative, Urine Nitrite Negative, Urine Bilirubin Negative, Urine Urobilinogen Normal, Ur Leukocyte Esterase 75 A, Urine RBC 4-6 A, Urine WBC 11-20 A, Ur Squamous Epith Cells 0-3, Calcium Oxalate Crystal Rare A, Urine Bacteria None Seen, Urine Mucus 2+ A Status: lab reviewed by me A/P - Problem (1) Subcutaneous emphysema Current Visit: Yes Code(s): T79.7XXA - TRAUMATIC SUBCUTANEOUS EMPHYSEMA, INITIAL ENCOUNTER Status: Acute Qualifiers: Encounter type: subsequent encounter Qualified Code(s): T79.7XXD - Traumatic subcutaneous emphysema, subsequent encounter (2) History of lung cancer Current Visit: No Code(s): Z85.118 - PERSONAL HISTORY OF MALIGNANT NEOPLASM OF BRONCHUS AND LUNG Status: Chronic (3) Malignant pleural effusion Current Visit: No Code(s): J91.0 - MALIGNANT PLEURAL EFFUSION Status: Chronic - Plan Plan: SOB and subq emphysema improved slightly today. She appears less ill compared to yesterday. cont chest-tube drainage and monitor for improvement not a candidate for chemotherapy at this time, may change if she continues to improve - son wants to remain aggressive in her treatment f/u palliative care c/s hyponatremia tx as per Dr. Brown -- poor prognosis
[2020-05-15 18:50] LABS: Anion Gap 16 mmol/L (10-20); BUN (Urea Nitrogen) 16 mg/dL (9.8-20.1); Calc. Creatinine Clearance 62 mL/min (70-130); Calcium 8.1 mg/dL (7.8-10.44); Carbon Dioxide 23 mmol/L (23-31); Chloride 92 mmol/L (98-107); Glucose 106 mg/dL (83-110); Potassium 4.5 mmol/L (3.5-5.1); Sodium 126 mmol/L (136-145)
[2020-05-15] MEDS: Megestrol Acetate 40 MG TAB PO SCH (20:59)
[2020-05-16 05:09] LABS: Anion Gap 10 mmol/L (10-20); BUN (Urea Nitrogen) 14 mg/dL (9.8-20.1); Calc. Creatinine Clearance 64 mL/min (70-130); Calcium 8.2 mg/dL (7.8-10.44); Carbon Dioxide 29 mmol/L (23-31); Chloride 95 mmol/L (98-107); Glucose 113 mg/dL (83-110); Potassium 4.1 mmol/L (3.5-5.1); Sodium 130 mmol/L (136-145)
[2020-05-16] MEDS: Sodium Chloride 0.9% 1,000 ML IV SCH ×2 (08:08→16:20)
[2020-05-16] MEDS: Megestrol Acetate 40 MG TAB PO SCH ×2 (08:09→21:11)
[2020-05-16] MEDS: Losartan 25 MG TAB PO SCH (08:09)
--- NOTE | 2020-05-16 08:51 | PRG ---
DATE OF SERVICE: 05/16/2020 SUBJECTIVE: Ms. Wolff is a 74-year-old Romanian female with known history of metastatic lung cancer and was seen by the Renal Service for her hyponatremia. This is on the basis of a hypovolemic hyponatremia. Normal saline has been started. Serum sodium has been slowly improving. No new complaints today. Please note, the patient does not speak Lao. OBJECTIVE: VITAL SIGNS: Blood pressure 121/58, heart rate 90, respiratory rate 16, temperature 98.3, and O2 saturation 100%. GENERAL: The patient is awake, comfortable, not in overt distress. SKIN: Adequate turgor. HEENT: She has pinkish conjunctivae. Anicteric sclerae. NECK: No neck mass. No carotid bruits. No JVD. CHEST: No deformities. LUNGS: Decreased breath sounds. HEART: Normal sinus rhythm. No murmurs. No gallops. No rubs. ABDOMEN: Globular, soft, and nontender. No masses. EXTREMITIES: Trace edema. MEDICATIONS: Medications of May 16, 2020, was reviewed. LABORATORY DATA: Laboratories of May 15, 2020, white count 6 and hemoglobin 10.5. Sodium 130, potassium 4.1, chloride 95, carbon dioxide 29, BUN 14, creatinine 0.61, and calcium 8.2. ASSESSMENT AND PLAN: 1. Hyponatremia - secondary to hypovolemic hyponatremia. Slowly improving serum sodium. Serum sodium in the last 24 hours has gone up from 122 to 130. We will continue current normal saline at 100 mL/hour. There is no indication for any hypertonic saline with this patient. 2. Lung cancer - metastatic - supportive care. The patient is not a candidate for chemotherapy. Oncology is following. 3. Recheck basic metabolic in a.m. Job ID: [id number]
--- NOTE | 2020-05-16 13:06 | PDOC.HOSPP ---
- Subjective Encounter Date: 05/16/20 Encounter Time: 11:45 Subjective: no sob, is sitting in chair, is eating better - Objective Vital Signs & Weight: Vital Signs (12 hours) Temp Pulse Resp BP Pulse Ox 05/16/20 08:00 100 05/16/20 07:39 98.3 F 90 16 121/58 L 100 05/16/20 04:00 97.9 F 87 16 134/83 100 Weight Admit Weight 112 lb 1.6 oz Weight 112 lb 1.6 oz I&O: 05/15/20 05/16/20 05/17/20 06:59 06:59 06:59 Intake Total 60 1150 1500 Output Total 350 1620 Balance -290 -470 1500 Result Diagrams: 05/15/20 05:54 05/16/20 04:11 Hospitalist ROS - Medication Medications: Active Medications Generic Name Dose Route Start Last Admin Trade Name Freq PRN Reason Stop Dose Admin Albuterol/Ipratropium 3 ml 05/13/20 13:00 05/16/20 07:49 Ipratropium/Albuterol Sulfate 3 Ml Neb NEB 3 ml [id number] ELAINE Administration Sodium Chloride 1,000 mls @ 100 mls/hr 05/15/20 08:30 05/16/20 08:08 Normal Saline 0.9% IV 1,000 mls .Q10H ELAINE Administration Losartan Potassium 25 mg 05/13/20 09:00 05/16/20 08:09 Losartan 25 Mg Tab PO 25 mg DAILY ELAINE Administration Megestrol Acetate 40 mg 05/15/20 21:00 05/16/20 08:09 Megestrol Acetate 40 Mg Tab PO 40 mg BID ELAINE Administration Tramadol HCl 50 mg 05/13/20 06:52 05/14/20 10:25 Tramadol Hcl 50 Mg Tab PO 50 mg Q6HR PRN Administration Moderate to Severe Pain (6-10) - Exam General Appearance: awake alert Eye: PERRL, anicteric sclera ENT: no oropharyngeal lesions, moist mucosa Neck: supple, no JVD Heart: RRR, no murmur Respiratory: no wheezes, no rales Respiratory - other findings: pleuryx cath to under water seal Gastrointestinal: soft, non-tender, non-distended, normal bowel sounds Extremities: no cyanosis, 1+ LE edema Neurological: cranial nerve grossly intact, no focal deficits Hosp A/P (1) Subcutaneous emphysema Code(s): T79.7XXA - TRAUMATIC SUBCUTANEOUS EMPHYSEMA, INITIAL ENCOUNTER Status: Acute Qualifiers: Encounter type: subsequent encounter Qualified Code(s): T79.7XXD - Traumatic subcutaneous emphysema, subsequent encounter (2) Malignant pleural effusion Code(s): J91.0 - MALIGNANT PLEURAL EFFUSION Status: Chronic (3) Shortness of breath Code(s): R06.02 - SHORTNESS OF BREATH Status: Chronic (4) History of lung cancer Code(s): Z85.118 - PERSONAL HISTORY OF MALIGNANT NEOPLASM OF BRONCHUS AND LUNG Status: Chronic (5) History of pulmonary embolism Code(s): Z86.711 - PERSONAL HISTORY OF PULMONARY EMBOLISM Status: Chronic (6) Hypertension Code(s): I10 - ESSENTIAL (PRIMARY) HYPERTENSION Status: Chronic Qualifiers: Hypertension type: essential hypertension Qualified Code(s): I10 - Essential (primary) hypertension - Plan sub cut emphysema from face and upper extremity is resolving has pleSoundhawk Corporationx cath connected to underwater seal, accidentally got disconnected this am. 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
--- NOTE | 2020-05-16 15:04 | PDOC.MOPN ---
Interval History: no complaints, gave me thumbs up. - Vital Signs Vital Signs: Vital Signs (12 hours) Temp Pulse Resp BP Pulse Ox 05/16/20 12:00 98.4 F 88 18 128/62 100 05/16/20 08:00 100 05/16/20 07:39 98.3 F 90 16 121/58 L 100 05/16/20 04:00 97.9 F 87 16 134/83 100 Weight Admit Weight 112 lb 1.6 oz Weight 112 lb 1.6 oz - Physical Exam General: Alert Lungs: Other Cardiovascular: Regular rate Abdomen: Normal bowel sounds Neurological: Normal speech - Labs Result Diagrams: 05/15/20 05:54 05/16/20 04:11 Lab results: Laboratory Results - last 24 hr 05/16/20 04:11: Sodium 130 L, Potassium 4.1, Chloride 95 L, Carbon Dioxide 29, Anion Gap 10, BUN 14, Creatinine 0.61, Estimated GFR (MDRD) Greater than 90, Glucose 113 H, Calcium 8.2 05/15/20 18:17: Sodium 126 L, Potassium 4.5, Chloride 92 L, Carbon Dioxide 23, Anion Gap 16, BUN 16, Creatinine 0.63, Estimated GFR (MDRD) Greater than 90, Glucose 106, Calcium 8.1 Status: lab reviewed by me A/P - Problem (1) Subcutaneous emphysema Current Visit: Yes Code(s): T79.7XXA - TRAUMATIC SUBCUTANEOUS EMPHYSEMA, INITIAL ENCOUNTER Status: Acute Qualifiers: Encounter type: subsequent encounter Qualified Code(s): T79.7XXD - Traumatic subcutaneous emphysema, subsequent encounter (2) History of lung cancer Current Visit: No Code(s): Z85.118 - PERSONAL HISTORY OF MALIGNANT NEOPLASM OF BRONCHUS AND LUNG Status: Chronic (3) Malignant pleural effusion Current Visit: No Code(s): J91.0 - MALIGNANT PLEURAL EFFUSION Status: Chronic - Plan Plan: pleurx cath to suction in place with air leak, slightly improved subcutaneous air the same continue supportive care
[2020-05-17] MEDS: Sodium Chloride 0.9% 1,000 ML IV SCH ×2 (02:10→09:32)
[2020-05-17 04:00] LABS: Anion Gap 12 mmol/L (10-20); BUN (Urea Nitrogen) 14 mg/dL (9.8-20.1); Calc. Creatinine Clearance 53 mL/min (70-130); Calcium 7.7 mg/dL (7.8-10.44); Carbon Dioxide 22 mmol/L (23-31); Chloride 100 mmol/L (98-107); Glucose 100 mg/dL (83-110); Potassium 3.9 mmol/L (3.5-5.1); Sodium 130 mmol/L (136-145)
--- NOTE | 2020-05-17 08:16 | PDOC.MOPN ---
Interval History: Pt stable. Pt receiving nebulizer upon exam. SubQ emphysema appears slightly improved but still quite extensive. - Vital Signs Vital Signs: Vital Signs (12 hours) Temp Pulse Resp BP Pulse Ox 05/17/20 08:04 90 16 05/17/20 04:00 98.1 F 92 16 118/74 100 05/17/20 00:07 97 16 100 05/16/20 23:45 98.9 F 96 16 122/76 100 05/16/20 21:15 100 Weight Admit Weight 112 lb 1.6 oz Weight 112 lb 1.6 oz - Physical Exam General: Alert, Cooperative HEENT: EOMI Lungs: Other (subq emphysema crackles) Cardiovascular: Regular rate Extremities: Other (diffuse subq emphysema in B/L UE and neck) Neurological: Cranial nerves 3-12 NL - Labs Result Diagrams: 05/18/20 04:09 05/18/20 04:09 Lab results: Laboratory Results - last 24 hr 05/17/20 03:22: Sodium 130 L, Potassium 3.9, Chloride 100, Carbon Dioxide 22 L, Anion Gap 12, BUN 14, Creatinine 0.73, Estimated GFR (MDRD) 78, Glucose 100, Calcium 7.7 L A/P - Problem (1) Malignant pleural effusion Current Visit: No Code(s): J91.0 - MALIGNANT PLEURAL EFFUSION Status: Chronic - Plan Plan: Cont PleurX to suction, subq emphysema very slowly improving and still extensive May benefit from PT Prognosis guarded
--- NOTE | 2020-05-17 08:36 | RAD ---
PORTABLE CHEST: HISTORY: Followup of pneumothorax. FINDINGS: Extensive subcutaneous emphysema is seen over the chest. A right-sided chest tube is in place. Ther e appears to be an apical pneumothorax present. The right upper lobe lung mass is similar to the moncho or exam. IMPRESSION: Essentially stable exam. POS: YAMILET
--- NOTE | 2020-05-17 08:56 | PRG ---
DATE OF SERVICE: 05/17/2020 SUBJECTIVE: Ms. Wolff is a 74-year-old Yor[place] female who was admitted due to her underlying lung cancer with malignant pleural effusion. We are seeing this patient for the hyponatremia. Initially, we felt that this could be either SIADH. However, urine chemistry suggested some degree of volume depletion. Normal saline has been started. Serum sodium improved from 122 to 130. This morning, still the serum sodium 130. We will decrease normal saline from 100 to 75 mL/h. No other complaints today. She has a chest tube placed due to the malignant pleural effusion. OBJECTIVE: VITAL SIGNS: Blood pressure is 118/56, heart rate 95, respiratory rate 20, temperature 98.2, and O2 saturation 100%. GENERAL: The patient is awake, sitting comfortable, not in distress. SKIN: Adequate turgor. HEENT: Pinkish conjunctivae. Anicteric sclerae. No neck mass. No carotid bruits. No JVD. Positive for mild facial edema. LUNGS: Decreased breath sounds. CHEST: Positive for chest tube. HEART: Normal sinus rhythm. No murmur, no gallops, and no rubs. ABDOMEN: Globular, soft, and nontender. No masses. EXTREMITIES: Trace edema. MEDICATIONS: Medications of 05/17/2020 were reviewed. LABORATORY DATA: On 05/15/2020: White count 6, hemoglobin 10.5. On 05/17/2020: Sodium 130, potassium 3.9, chloride 100, carbon dioxide 22, BUN 14, creatinine 0.73, and calcium 7.7. ASSESSMENT AND PLAN: 1. Hyponatremia secondary to volume depletion. If the serum sodium will not further improve by tomorrow or it worsens, I will consider starting her on tolvaptan. At this time, there is no indication for any hypertonic saline. Continue supportive care. 2. Lung cancer with metastasis/pleural effusion, supportive care, status post chest tube placement. Oncology is following. Overall prognosis remains guarded. We will recheck CBC and basic metabolic in a.m. Job ID: [id number]
[2020-05-17] MEDS: Megestrol Acetate 40 MG TAB PO SCH ×2 (09:31→21:32)
[2020-05-17] MEDS: Losartan 25 MG TAB PO SCH (09:31)
--- NOTE | 2020-05-17 12:50 | PDOC.HOSPP ---
- Subjective Encounter Date: 05/17/20 Encounter Time: 12:30 Subjective: is sitting in chair, no sob is ambulating in room with rw, on nasal canula O2 - Objective Vital Signs & Weight: Vital Signs (12 hours) Temp Pulse Resp BP Pulse Ox 05/17/20 08:04 90 16 05/17/20 08:00 98.8 F 95 20 118/56 L 100 05/17/20 04:00 98.1 F 92 16 118/74 100 Weight Admit Weight 112 lb 1.6 oz Weight 112 lb 1.6 oz I&O: 05/16/20 05/17/20 05/18/20 06:59 06:59 06:59 Intake Total 1150 1500 Output Total 1620 100 Balance -470 1400 Result Diagrams: 05/15/20 05:54 05/17/20 03:22 Hospitalist ROS - Medication Medications: Active Medications Generic Name Dose Route Start Last Admin Trade Name Freq PRN Reason Stop Dose Admin Albuterol/Ipratropium 3 ml 05/13/20 13:00 05/17/20 08:04 Ipratropium/Albuterol Sulfate 3 Ml Neb NEB 3 ml [id number] ELAINE Administration Sodium Chloride 1,000 mls @ 75 mls/hr 05/17/20 08:30 05/17/20 09:32 Normal Saline 0.9% IV 1,000 mls .[id number] ELAINE Administration Losartan Potassium 25 mg 05/13/20 09:00 05/17/20 09:31 Losartan 25 Mg Tab PO Not Given DAILY ELAINE Megestrol Acetate 40 mg 05/15/20 21:00 05/17/20 09:31 Megestrol Acetate 40 Mg Tab PO 40 mg BID ELAIEN Administration Tramadol HCl 50 mg 05/13/20 06:52 05/14/20 10:25 Tramadol Hcl 50 Mg Tab PO 50 mg Q6HR PRN Administration Moderate to Severe Pain (6-10) - Exam General Appearance: awake alert Eye: PERRL, anicteric sclera ENT: no oropharyngeal lesions, moist mucosa Neck: supple, no JVD Heart: RRR, no murmur Respiratory: no wheezes, no rales Gastrointestinal: soft, non-tender, non-distended, normal bowel sounds Extremities: no cyanosis, 1+ LE edema Neurological: cranial nerve grossly intact, no focal deficits Psychiatric: A&O x 3 Hosp A/P (1) Subcutaneous emphysema Code(s): T79.7XXA - TRAUMATIC SUBCUTANEOUS EMPHYSEMA, INITIAL ENCOUNTER Status: Acute Qualifiers: Encounter type: subsequent encounter Qualified Code(s): T79.7XXD - Traumatic subcutaneous emphysema, subsequent encounter (2) Malignant pleural effusion Code(s): J91.0 - MALIGNANT PLEURAL EFFUSION Status: Chronic (3) Shortness of breath Code(s): R06.02 - SHORTNESS OF BREATH Status: Chronic (4) History of lung cancer Code(s): Z85.118 - PERSONAL HISTORY OF MALIGNANT NEOPLASM OF BRONCHUS AND LUNG Status: Chronic (5) History of pulmonary embolism Code(s): Z86.711 - PERSONAL HISTORY OF PULMONARY EMBOLISM Status: Chronic (6) Hypertension Code(s): I10 - ESSENTIAL (PRIMARY) HYPERTENSION Status: Chronic Qualifiers: Hypertension type: essential hypertension Qualified Code(s): I10 - Essential (primary) hypertension - Plan sub cut emphysema from face and upper extremity is slowly resolving has pleuryx cath connected to underwater seal poor prognosis with 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
[2020-05-17] MEDS: traMADol HCl 50 MG TAB PO PRN (21:34)
[2020-05-18] MEDS: Sodium Chloride 0.9% 1,000 ML IV SCH (02:00)
[2020-05-18 04:41] LABS: #Eosinphils 0.1 thou/uL (0.0-0.7); #Lymphocytes 0.8 thou/uL (1.20-3.40); #Monocytes 0.5 thou/uL (0.11-0.59); #Neutrophils 3.5 thou/uL (1.40-6.50); %Basophils 0.1 % (0.0-1.0); %Lymphocytes 15.3 % (21.0-51.0); %Monocytes 10.3 % (0.0-10.0); %Neutrophils 71.3 % (42.0-75.0); Mean Corpuscular HGB CONC 31.9 g/dL (32.0-36.0); Mean Corpuscular Hemoglobin 25.7 pg (27.0-31.0); Mean Corpuscular Volume 80.3 fL (78.0-98.0); Mean Platelet Volume 7.1 fL (7.4-10.4); Platelet Count 273 thou/uL (130-400); Red Blood Cell (RBC) Count 3.52 mill/uL (4.20-5.40); White Blood Cell (WBC) Count 4.9 thou/uL (4.8-10.8)
[2020-05-18 05:07] LABS: Anion Gap 12 mmol/L (10-20); BUN (Urea Nitrogen) 14 mg/dL (9.8-20.1); Calc. Creatinine Clearance 68 mL/min (70-130); Calcium 7.9 mg/dL (7.8-10.44); Carbon Dioxide 23 mmol/L (23-31); Chloride 101 mmol/L (98-107); Glucose 93 mg/dL (83-110); Potassium 3.8 mmol/L (3.5-5.1); Sodium 132 mmol/L (136-145)
--- NOTE | 2020-05-18 08:42 | PRG ---
DATE OF SERVICE: 05/18/2020 SUBJECTIVE: Ms. Wolff is a 74-year-old Turk[place] female, who was admitted for lung cancer with mets. We saw this patient for her hyponatremia. Working diagnosis is hypovolemic hyponatremia. Volume repletion was given with the improvement of the serum sodium. No new complaints today. OBJECTIVE: VITAL SIGNS: Blood pressure 124/60, heart rate 91, respiratory rate 18, temperature 98.6, O2 saturation 99% on 4 L. GENERAL: The patient is awake, alert, comfortable, sitting, not in distress. SKIN: Adequate turgor. HEENT: Pinkish conjunctivae, anicteric sclerae. Positive for facial swelling. NECK: No neck mass. No carotid bruits. No JVD. LUNGS: Clear breath sounds. HEART: Normal sinus rhythm. No murmur. No gallops. No rubs. CHEST: Positive for chest tube. ABDOMEN: Globular. Soft. Nontender. EXTREMITIES: Trace edema. MEDICATIONS: May 18, 2020, reviewed. LABORATORY DATA: May 18, 2020, white count 4.9, hemoglobin 9. Sodium 132, potassium 3.8, chloride 101, carbon dioxide 23, BUN 14, creatinine 0.57, calcium 7.9. ASSESSMENT AND PLAN: 1. Hypovolemic hyponatremia, slowly improving with volume repletion. No indication for any hypertonic saline at the present time. Holding off tolvaptan. Serum sodium is slightly improved from 130 to 132 in the last 24 hours. Continue free water restriction. 2. Lung cancer with metastasis - supportive care. Oncology is following. Overall, prognosis remains guarded with this patient. Recheck basic met in the a.m. Job ID: [id number]
[2020-05-18] MEDS ORDERED: Tolvaptan 15 MG TAB PO SCH (09:00)
[2020-05-18] MEDS: Megestrol Acetate 40 MG TAB PO SCH ×2 (09:03→20:17)
[2020-05-18] MEDS: Losartan 25 MG TAB PO SCH (09:03)
--- NOTE | 2020-05-18 11:37 | PDOC.MOPN ---
Interval History: Pt walking around on exam. Son states she is feeling slightly better, walking around the room. Cough has improved. - Vital Signs Vital Signs: Vital Signs (12 hours) Temp Pulse Resp BP Pulse Ox 05/18/20 11:23 97.9 F 103 H 22 H 124/90 98 05/18/20 09:45 99 05/18/20 08:00 97.9 F 106 H 20 142/80 H 98 05/18/20 03:46 98.6 F 91 18 124/60 99 05/17/20 23:57 88 16 05/17/20 23:41 98.7 F 92 16 126/61 99 Weight Admit Weight 112 lb 1.6 oz Weight 112 lb 1.6 oz - Physical Exam General: Alert, Oriented x3, Cooperative HEENT: EOMI Lungs: Other (air crackles improved over posterior lung suazo) Extremities: Other (subq emphysema improved in hands and neck) Neurological: Cranial nerves 3-12 NL Psych/Mental Status: Mental status NL - Labs Result Diagrams: 05/18/20 04:09 05/18/20 04:09 Lab results: Laboratory Results - last 24 hr 05/18/20 04:09: WBC 4.9, RBC 3.52 L, Hgb 9.0 L, Hct 28.3 L, MCV 80.3, MCH 25.7 L, MCHC 31.9 L, RDW 13.0, Plt Count 273, MPV 7.1 L, Neutrophils % 71.3, Lymphocytes % 15.3 L, Monocytes % 10.3 H, Eosinophils % 3.0, Basophils % 0.1, Neutrophils # 3.5, Lymphocytes # 0.8 L, Monocytes # 0.5, Eosinophils # 0.1, Basophils # 0.0 05/18/20 04:09: Sodium 132 L, Potassium 3.8, Chloride 101, Carbon Dioxide 23, Anion Gap 12, BUN 14, Creatinine 0.57 L, Estimated GFR (MDRD) Greater than 90, Glucose 93, Calcium 7.9 A/P - Problem (1) Malignant pleural effusion Current Visit: No Code(s): J91.0 - MALIGNANT PLEURAL EFFUSION Status: Chronic - Plan Plan: Cont Pleur-x drainage, monitor PTX Encourage ambulation around the room prognosis guarded: consider chemotherapy inpatient if PTX resolves
--- NOTE | 2020-05-18 12:14 | RAD ---
EXAM: CHEST ONE VIEW HISTORY: Follow-up pneumothorax. COMPARISON: 05/17/2020 FINDINGS: Right-sided thoracostomy tube remains in place and unchanged in position. The right apical pneumothor ax is less perceptible on this examination some of which is related to overlying rib, but there is suggestion of a trace right apical pneumothorax. Extensive subcutaneous emphysema is again seen about the chest and extending into the supraclavicular regions and into the subcutaneous soft tissues of the upper abdomen. Right lung mass persists. There are stable bibasilar pleural and parenchymal lung changes as well as superimposed mild chronic lung changes. Right sided Mediport catheter remains in place. No other interval change. IMPRESSION: 1. Right-sided thoracostomy tube remaining in place. The right apical pneumothorax has decreased in s ize, but there does appear to be persistent trace right apical pneumothorax. Extensive subcutaneous emphysema persists. 2. Stable right lung mass with bibasilar pleural and parenchymal lung changes similar to prior study.
--- NOTE | 2020-05-18 13:03 | PDOC.HOSPP ---
- Subjective Encounter Date: 05/18/20 Encounter Time: 10:30 Subjective: no sob or chest pain has increased subcut emphysema in both upper limbs and face this am son at bedside - Objective Vital Signs & Weight: Vital Signs (12 hours) Temp Pulse Resp BP Pulse Ox 05/18/20 11:23 97.9 F 103 H 22 H 124/90 98 05/18/20 09:45 99 05/18/20 08:00 97.9 F 106 H 20 142/80 H 98 05/18/20 03:46 98.6 F 91 18 124/60 99 Weight Admit Weight 112 lb 1.6 oz Weight 112 lb 1.6 oz I&O: 05/17/20 05/18/20 05/19/20 06:59 06:59 06:59 Intake Total 1500 1200 Output Total 100 130 Balance 1400 1070 Result Diagrams: 05/18/20 04:09 05/18/20 04:09 Hospitalist ROS - Medication Medications: Active Medications Generic Name Dose Route Start Last Admin Trade Name Freq PRN Reason Stop Dose Admin Albuterol/Ipratropium 3 ml 05/13/20 13:00 05/18/20 08:00 Ipratropium/Albuterol Sulfate 3 Ml Neb NEB 3 ml [id number] ELAINE Administration Losartan Potassium 25 mg 05/13/20 09:00 05/18/20 09:03 Losartan 25 Mg Tab PO 25 mg DAILY ELAINE Administration Megestrol Acetate 40 mg 05/15/20 21:00 05/18/20 09:03 Megestrol Acetate 40 Mg Tab PO 40 mg BID ELAINE Administration Tramadol HCl 50 mg 05/13/20 06:52 05/17/20 21:34 Tramadol Hcl 50 Mg Tab PO 50 mg Q6HR PRN Administration Moderate to Severe Pain (6-10) - Exam General Appearance: awake alert Eye: PERRL, anicteric sclera ENT: no oropharyngeal lesions, moist mucosa Neck: supple, symmetric Heart: no murmur, no gallops Respiratory: no wheezes Respiratory - other findings: decreased air entry right infrascapular area Gastrointestinal: soft, non-tender, non-distended, normal bowel sounds Extremities: no cyanosis, 1+ LE edema Neurological: cranial nerve grossly intact, no focal deficits Psychiatric: A&O x 3 Hosp A/P (1) Pneumothorax Code(s): J93.9 - PNEUMOTHORAX, UNSPECIFIED Status: Acute Qualifiers: Pneumothorax type: other pneumothorax Qualified Code(s): J93.83 - Other pneumothorax (2) Subcutaneous emphysema Code(s): T79.7XXA - TRAUMATIC SUBCUTANEOUS EMPHYSEMA, INITIAL ENCOUNTER Status : Acute Qualifiers: Encounter type: subsequent encounter Qualified Code(s): T79.7XXD - Traumatic subcutaneous emphysema, subsequent encounter (3) Malignant pleural effusion Code(s): J91.0 - MALIGNANT PLEURAL EFFUSION Status: Chronic (4) Shortness of breath Code(s): R06.02 - SHORTNESS OF BREATH Status: Chronic (5) History of lung cancer Code(s): Z85.118 - PERSONAL HISTORY OF MALIGNANT NEOPLASM OF BRONCHUS AND LUNG Status: Chronic (6) History of pulmonary embolism Code(s): Z86.711 - PERSONAL HISTORY OF PULMONARY EMBOLISM Status: Chronic (7) Hypertension Code(s): I10 - ESSENTIAL (PRIMARY) HYPERTENSION Status: Chronic Qualifiers: Hypertension type: essential hypertension Qualified Code(s): I10 - Essential (primary) hypertension - Plan has extrensive sub cut emphysema has pleuryx cath connected to underwater seal poor prognosis with 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
[2020-05-19 04:33] LABS: Anion Gap 13 mmol/L (10-20); BUN (Urea Nitrogen) 12 mg/dL (9.8-20.1); Calc. Creatinine Clearance 63 mL/min (70-130); Calcium 8.4 mg/dL (7.8-10.44); Carbon Dioxide 26 mmol/L (23-31); Chloride 103 mmol/L (98-107); Glucose 102 mg/dL (83-110); Potassium 3.9 mmol/L (3.5-5.1); Sodium 138 mmol/L (136-145)
[2020-05-19] MEDS: Megestrol Acetate 40 MG TAB PO SCH ×2 (08:02→20:20)
[2020-05-19] MEDS: Losartan 25 MG TAB PO SCH (08:02)
--- NOTE | 2020-05-19 13:03 | PDOC.HOSPP ---
- Subjective Encounter Date: 05/19/20 Encounter Time: 12:00 Subjective: is sitting in chair, not in distress has right chest tube to underwater seal - Objective Vital Signs & Weight: Vital Signs (12 hours) Temp Pulse Resp BP Pulse Ox 05/19/20 12:20 98.2 F 96 20 116/80 100 05/19/20 07:54 98.0 F 95 20 125/84 100 05/19/20 07:46 93 18 96 05/19/20 04:00 99.4 F 100 20 121/60 100 05/19/20 01:34 82 16 100 Weight Admit Weight 112 lb 1.6 oz Weight 112 lb 1.6 oz I&O: 05/18/20 05/19/20 05/20/20 06:59 06:59 06:59 Intake Total 1200 Output Total 130 2019 Balance 1069 -2019 Result Diagrams: 05/18/20 04:09 05/19/20 03:30 Hospitalist ROS - Medication Medications: Active Medications Generic Name Dose Route Start Last Admin Trade Name Freq PRN Reason Stop Dose Admin Albuterol/Ipratropium 3 ml 05/13/20 13:00 05/19/20 07:46 Ipratropium/Albuterol Sulfate 3 Ml Neb NEB 3 ml [id number] ELAINE Administration Losartan Potassium 25 mg 05/13/20 09:00 05/19/20 08:02 Losartan 25 Mg Tab PO 25 mg DAILY ELAINE Administration Megestrol Acetate 40 mg 05/15/20 21:00 05/19/20 08:02 Megestrol Acetate 40 Mg Tab PO 40 mg BID ELAINE Administration Tramadol HCl 50 mg 05/13/20 06:52 05/17/20 21:34 Tramadol Hcl 50 Mg Tab PO 50 mg Q6HR PRN Administration Moderate to Severe Pain (6-10) - Exam General Appearance: awake alert Eye: PERRL, anicteric sclera ENT: no oropharyngeal lesions, moist mucosa Neck: supple, no JVD Heart: RRR, no murmur Respiratory: no wheezes, no rales Gastrointestinal: soft, non-tender, non-distended, normal bowel sounds Extremities: no cyanosis, 1+ LE edema Skin: no rashes Skin - other findings: extensive sub cut emphysema in upper torso including face Neurological: cranial nerve grossly intact, no focal deficits Hosp A/P (1) Pneumothorax Code(s): J93.9 - PNEUMOTHORAX, UNSPECIFIED Status: Acute Qualifiers: Pneumothorax type: other pneumothorax Qualified Code(s): J93.83 - Other pneumothorax (2) Subcutaneous emphysema Code(s): T79.7XXA - TRAUMATIC SUBCUTANEOUS EMPHYSEMA, INITIAL ENCOUNTER S tatus: Acute Qualifiers: Encounter type: subsequent encounter Qualified Code(s): T79.7XXD - Traumatic subcutaneous emphysema, subsequent encounter (3) Malignant pleural effusion Code(s): J91.0 - MALIGNANT PLEURAL EFFUSION Status: Chronic (4) Shortness of breath Code(s): R06.02 - SHORTNESS OF BREATH Status: Chronic (5) History of lung cancer Code(s): Z85.118 - PERSONAL HISTORY OF MALIGNANT NEOPLASM OF BRONCHUS AND LUNG Status: Chronic (6) History of pulmonary embolism Code(s): Z86.711 - PERSONAL HISTORY OF PULMONARY EMBOLISM Status: Chronic (7) Hypertension Code(s): I10 - ESSENTIAL (PRIMARY) HYPERTENSION Status: Chronic Qualifiers: Hypertension type: essential hypertension Qualified Code(s): I10 - Essential (primary) hypertension - Plan has extrensive sub cut emphysema pleuryx cath is connected to underwater seal poor prognosis with 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
--- NOTE | 2020-05-20 10:27 | RAD ---
PORTABLE CHEST: HISTORY: Followup of subcutaneous emphysema. COMPARISON: 05/18/2020 study. FINDINGS: The right-sided chest mass and right-sided pleural lung changes as well as the parenchymal changes in both lung suazo all appear stable as compared to the prior exam. The right chest tube remains in p lace. Pulmonary nodules are unchanged. The subcutaneous emphysema has improved. IMPRESSION: Improving subcutaneous emphysema; otherwise, stable chest. POS: YAMILET
[2020-05-20] MEDS: Losartan 25 MG TAB PO SCH (10:32)
[2020-05-20] MEDS: Megestrol Acetate 40 MG TAB PO SCH ×2 (10:33→21:46)
--- NOTE | 2020-05-20 15:20 | EKG ---
Test Reason : Blood Pressure : / mmHG Vent. Rate : 095 BPM Atrial Rate : 092 BPM P-R Int : 000 ms QRS Dur : 076 ms QT Int : 322 ms P-R-T Axes : 000 -40 006 degrees QTc Int : 404 ms Accelerated Junctional rhythm Left axis deviation Pulmonary disease pattern Abnormal ECG Confirmed by JAYLEN UREÑA DO ([id number]), commissioning editor KELIN HURST ([id number]) on 05/20/2020 3:19:52 PM Referred By: Confirmed By:JAYLEN UREÑA DO
--- NOTE | 2020-05-20 17:51 | PDOC.HOSPP ---
- Subjective Encounter Date: 05/20/20 Encounter Time: 15:00 Subjective: F/u: The patient is Mandarin speaking and I was unable to communicate with her. SHe does not appear very short of breath. Oxygen is being weaned down I was told by the nurse that she does not understand the heel seat sander because the dialect isn't the same - Objective Vital Signs & Weight: Vital Signs (12 hours) Temp Pulse Resp BP Pulse Ox 05/20/20 15:09 99.1 F 100 20 86/52 L 99 05/20/20 12:00 91 16 100 05/20/20 11:10 98.2 F 96 20 119/57 L 100 05/20/20 08:00 99 05/20/20 07:23 97.9 F 100 22 H 115/67 99 05/20/20 07:01 94 16 100 Weight Admit Weight 112 lb 1.6 oz Weight 112 lb 1.6 oz I&O: 05/19/20 05/20/20 05/21/20 06:59 06:59 06:59 Intake Total 200 250 Output Total 2019 Balance -2019 150 250 Result Diagrams: 05/18/20 04:09 05/19/20 03:30 Hospitalist ROS - Review of Systems Constitutional: denies: fever, chills - Medication Medications: Active Medications Generic Name Dose Route Start Last Admin Trade Name Freq PRN Reason Stop Dose Admin Albuterol/Ipratropium 3 ml 05/13/20 13:00 05/20/20 12:00 Ipratropium/Albuterol Sulfate 3 Ml Neb NEB 3 ml [id number] ELAINE Administration Alprazolam 0.25 mg 05/12/20 17:29 05/20/20 10:33 Alprazolam 0.25 Mg Tab PO 0.25 mg TIDPRN PRN Administration Anxiety Losartan Potassium 25 mg 05/13/20 09:00 05/20/20 10:32 Losartan 25 Mg Tab PO 25 mg DAILY ELAINE Administration Megestrol Acetate 40 mg 05/15/20 21:00 05/20/20 10:33 Megestrol Acetate 40 Mg Tab PO 40 mg BID ELAINE Administration Tramadol HCl 50 mg 05/13/20 06:52 05/17/20 21:34 Tramadol Hcl 50 Mg Tab PO 50 mg Q6HR PRN Administration Moderate to Severe Pain (6-10) - Exam General Appearance: NAD, awake alert Eye: PERRL, anicteric sclera ENT: normocephalic atraumatic, no oropharyngeal lesions Neck: no JVD Heart: RRR, no murmur, no gallops, no rubs Respiratory: CTAB, no wheezes, no rales, no ronchi, normal percussion (bilaterally) Gastrointestinal: soft, non-tender, non-distended, normal bowel sounds Extremities: no cyanosis, no clubbing, no edema Skin: normal turgor, no lesions, no rashes Neurological: cranial nerve grossly intact, normal sensation to touch, no weakness Psychiatric: normal affect, normal behavior, A&O x 3, oriented to person Hosp A/P - Plan CT chest without contrast: extensive SC emphysema, pneumomediastinum, right hydropneumothorax, bilateral pulmonary metastases, with increase in size of right suprahilar mass Chest X ray 05/20: improving subcutaneous emphysema. Stable right sided chest mass and right sided pleural lung changes This is a 74 year old Mandarin Speaking patient with stage IV pulmonary priscilla nocarcinoma presenting with facial swelling, found to have extensive subcutaneous emphysema, pneumomediastinum and right hydropneumothorax with worsening right suprahilar mass #Acute hypoxic respiratory failure secondary to stage IV non-small cell lung cancer with malignant pleural effusion s/p pleurovac/subcutaneous emphyesma and right hydropneumothorax - patient is saturating 100% on 3L this am, attempting to wean down - she has pleurex catheter in place which is to suction. No further recommendations per CT surgery - subcutaneous emphysema is improving on chest X ray today. Right lung mass is stable in size. Dr. Gloria will discuss with the son tomorrow about potentially starting chemotherapy this admission - attempt to wean off oxygen Hyponatremia - resolved, sodium up to 138. Nephrology was on board Anemia - Hb 9 Hypertension - has had BP 80 systolic, will discontinue losartan for now History of PE - xarelto has been on hold, will discuss with CT surgery when safe to resume
[2020-05-20] MEDS ORDERED: Polyethylene Glycol 3350 17 GM Packet PO PRN (19:44)
[2020-05-20] MEDS ORDERED: Senokot 8.6 MG TAB PO PRN (19:44)
[2020-05-20] MEDS: Docusate 100 MG CAP PO PRN (21:46)
[2020-05-21] MEDS: Acetaminophen 325 MG TAB PO PRN ×2 (00:50→23:49)
[2020-05-21] MEDS: Benzonatate 100 MG CAP PO PRN ×2 (00:51→19:55)
[2020-05-21] MEDS: Docusate 100 MG CAP PO PRN ×2 (10:48→19:59)
[2020-05-21] MEDS: Megestrol Acetate 40 MG TAB PO SCH ×2 (10:48→19:49)
--- NOTE | 2020-05-21 15:15 | PDOC.HOSPP ---
- Subjective Encounter Date: 05/21/20 Encounter Time: 13:00 Subjective: F/u: lung cancer The patient complains of persistent shortness of breath and dry cough . She continues to have persistent air leak. Discussed with Dr. Nelson, he feels that the lung is necrotic and will always have an air leak and he feels chemo will not help. I explained this to the son. He cannot go home with Heimlich valve because the patient does not have a chest tube and it does not connect to pleurex catheters. I explained that prognosis for stage IV lung cancer is < 10% after five years. He did ask about hospice and whether they will take the patient with a chest tube, which I said I wasn't sure and would check. Oncology is discussing chemo versus keytruda therapy with the son. THe patient is interested in a second surgical opinion at [facility] and transfer request was initiated - Objective Vital Signs & Weight: Vital Signs (12 hours) Temp Pulse Resp BP Pulse Ox 05/21/20 12:30 88 16 05/21/20 12:00 98.5 F 82 18 123/65 99 05/21/20 08:00 98.5 F 81 16 117/61 99 05/21/20 06:44 80 20 05/21/20 04:00 99.6 F 94 22 H 109/59 L 98 Weight Admit Weight 112 lb 1.6 oz Weight 112 lb 1.6 oz I&O: 05/20/20 05/21/20 05/22/20 06:59 06:59 06:59 Intake Total 200 740 400 Output Total 50 720 Balance 150 20 400 Result Diagrams: 05/18/20 04:09 05/19/20 03:30 Hospitalist ROS - Review of Systems Constitutional: denies: fever, chills - Medication Medications: Active Medications Generic Name Dose Route Start Last Admin Trade Name Freq PRN Reason Stop Dose Admin Acetaminophen 650 mg 05/12/20 16:50 05/21/20 00:50 Acetaminophen 325 Mg Tab PO 650 mg Q4H PRN Administration Headache/Fever/Mild Pain (1-3) Albuterol/Ipratropium 3 ml 05/13/20 13:00 05/21/20 12:30 Ipratropium/Albuterol Sulfate 3 Ml Neb NEB 3 ml [id number] ELAINE Administration Alprazolam 0.25 mg 05/12/20 17:29 05/20/20 10:33 Alprazolam 0.25 Mg Tab PO 0.25 mg TIDPRN PRN Administration Anxiety Benzonatate 100 mg 05/12/20 20:56 05/21/20 00:51 Benzonatate 100 Mg Cap PO 100 mg TIDPRN PRN Administration Cough Docusate Sodium 100 mg 05/20/20 19:38 05/21/20 10:48 Docusate 100 Mg Cap PO 100 mg BIDPRN PRN Administration Constipation Megestrol Acetate 40 mg 05/15/20 21:00 05/21/20 10:48 Megestrol Acetate 40 Mg Tab PO 40 mg BID ELAINE Administration Tramadol HCl 50 mg 05/13/20 06:52 05/17/20 21:34 Tramadol Hcl 50 Mg Tab PO 50 mg Q6HR PRN Administration Moderate to Severe Pain (6-10) - Exam General Appearance: NAD, awake alert Eye: PERRL, anicteric sclera ENT: normocephalic atraumatic, no oropharyngeal lesions Neck: no JVD Heart: RRR, no murmur, no gallops, no rubs Respiratory: CTAB, no wheezes, no rales, no ronchi Gastrointestinal: soft, non-tender, non-distended, normal bowel sounds Extremities: no cyanosis, no clubbing, no edema Skin: normal turgor, no lesions, no rashes Hosp A/P - Plan CT chest without contrast: extensive SC emphysema, pneumomediastinum, right hydropneumothorax, bilateral pulmonary metastases, with increase in size of right suprahilar mass Chest X ray 05/20: improving subcutaneous emphysema. Stable right sided chest mass and right sided pleural lung changes This is a 74 year old Mandarin Speaking patient with stage IV pulmonary adenocarcinoma presenting with facial swelling, found to have extensive subcutaneous emphysema, pneumomediastinum and right hydropneumothorax with worsening right suprahilar mass #Acute hypoxic respiratory failure secondary to stage IV non-small cell lung cancer with malignant pleural effusion s/p pleurovac/subcutaneous emphyesma and right hydropneumothorax - patient has been weaned to 2.5L and is saturating 99% - chest x ray 05/20 shows improving subcutaneous emphysema. Right lung mass s table in size. Dr. Gloria to discuss immunotherapy vs chemotherapy with the son, but feels likely will not be candidate for chemo due to poor performance status - transfer initiated to [facility] for second surgical opinion regarding SC emphysema and pneumothorax with persistent air leak. Son is open to hearing about hospice as well in the meantime. If patient's son decides against chemotherapy and to go home with hospice, may need to remove the chest tube suction and evaluate whether her pneumothorax reoccurs Hyponatremia - resolved, sodium up to 138. Nephrology was on board Anemia - Hb 9 Hypertension -off meds History of PE - xarelto has been on hold
--- NOTE | 2020-05-21 16:51 | PDOC.EVN ---
Event Note - Event Note Event Note: Spoke with surgeon at [facility] who stated that she may be a candidate for a pleurodesis versus VATS, but difficult to say without seeing the images, but he is willing to accept her as a transfer if bed is available
[2020-05-22] MEDS: Megestrol Acetate 40 MG TAB PO SCH ×2 (08:41→20:39)
--- NOTE | 2020-05-22 14:38 | PDOC.MOPN ---
Interval History: Patient sitting in chair, sleeping. Respirations unlabored. - Vital Signs Vital Signs: Vital Signs (12 hours) Temp Pulse Resp BP Pulse Ox 05/22/20 13:23 93 20 98 05/22/20 12:00 98.4 F 98 18 123/68 98 05/22/20 08:00 98.5 F 101 H 18 117/65 98 05/22/20 07:09 96 05/22/20 07:08 100 20 96 05/22/20 04:00 98.6 F 100 24 H 124/66 96 Weight Admit Weight 112 lb 1.6 oz Weight 112 lb 1.6 oz - Physical Exam General: No acute distress HEENT: Atraumatic, PERRLA, EOMI, Mucous membr. moist/pink Lungs: Other Cardiovascular: Regular rate Abdomen: Normal bowel sounds - Labs Result Diagrams: 05/18/20 04:09 05/19/20 03:30 Status: lab reviewed by me A/P - Problem (1) Subcutaneous emphysema Current Visit: Yes Code(s): T79.7XXA - TRAUMATIC SUBCUTANEOUS EMPHYSEMA, INITIAL ENCOUNTER Status: Acute Qualifiers: Encounter type: subsequent encounter Qualified Code(s): T79.7XXD - Traumatic subcutaneous emphysema, subsequent encounter (2) History of lung cancer Current Visit: No Code(s): Z85.118 - PERSONAL HISTORY OF MALIGNANT NEOPLASM OF BRONCHUS AND LUNG Status: Chronic (3) Malignant pleural effusion Current Visit: No Code(s): J91.0 - MALIGNANT PLEURAL EFFUSION Status: Chronic - Plan Plan: 1. patient has been accepted to [facility] by Thoracic surgery. await room assignment. 2. Will not tolerate chemo, Keytruda not on formulary and cannot be given inpatient. 3. Discussed with Dr. Gloria.
--- NOTE | 2020-05-22 14:52 | PDOC.PALPN ---
Palliative Progress Note - Subjective Sitting in chair, weak, non labored respirations. Edema. Patient contiues to deny any complaints in ROS. - Objective Vital Signs: Vital Signs - Most Recent Temp Pulse Resp BP Pulse Ox 98.4 F 93 20 123/68 98 05/22/20 12:00 05/22/20 13:23 05/22/20 13:23 05/22/20 12:00 05/22/20 13:23 - Physical Exam Constitutional: ill appearing HEENT: moist MMs Deviation from normal: perioribital edema Respiratory: no rales, no rhonchi, no wheezing, diminished lung sound Cardiovascular: RRR Musculoskeletal: edema present Neurology: moves all 4 limbs, no focal deficits Skin: no lesions, no rash, normal turgor - Assessment (1) Palliative care encounter Code(s): Z51.5 - ENCOUNTER FOR PALLIATIVE CARE Current Visit: Yes Status: Acute (2) Subcutaneous emphysema Code(s): T79.7XXA - TRAUMATIC SUBCUTANEOUS EMPHYSEMA, INITIAL ENCOUNTER Current Visit: Yes Status: Acute Qualifiers: Encounter type: subsequent encounter Qualified Code(s): T79.7XXD - Traumatic subcutaneous emphysema, subsequent encounter (3) History of lung cancer Code(s): Z85.118 - PERSONAL HISTORY OF MALIGNANT NEOPLASM OF BRONCHUS AND LUNG Current Visit: No Status: Chronic (4) Malignant pleural effusion Code(s): J91.0 - MALIGNANT PLEURAL EFFUSION Current Visit: No Status: Chronic - Plan Plan: Not a candidate for Keytruda Belief is lung is necrotic, pneumothorax with persistent air leak. Currently awaiting transfer to [facility] with Thoracic surgery for further evaluation/palliation As Goal of care is currently addressed Palliative care will sign off. If we can assist in the future please reconsult our team. Thank you for this very appropriate consult. [25] minutes spent on this encounter with >50% of the time in counseling and coordination of care. - ROS Constitutional: weakness
--- NOTE | 2020-05-22 15:26 | PDOC.HOSPP ---
- Subjective Encounter Date: 05/22/20 Encounter Time: 14:00 Subjective: F/u: COVID The patient is sitting up and appears comfortable but still has some shortness of breath. Her air leak continues. Discussed with hospitalist this morning at [facility] who has accepted transfer - Objective Vital Signs & Weight: Vital Signs (12 hours) Temp Pulse Resp BP Pulse Ox 05/22/20 13:23 93 20 98 05/22/20 12:00 98.4 F 98 18 123/68 98 05/22/20 08:00 98.5 F 101 H 18 117/65 98 05/22/20 07:09 96 05/22/20 07:08 100 20 96 05/22/20 04:00 98.6 F 100 24 H 124/66 96 Weight Admit Weight 112 lb 1.6 oz Weight 112 lb 1.6 oz I&O: 05/21/20 05/22/20 05/23/20 06:59 06:59 06:59 Intake Total 740 920 Output Total 720 520 Balance 20 400 Result Diagrams: 05/18/20 04:09 05/19/20 03:30 Hospitalist ROS - Review of Systems Constitutional: denies: fever, chills - Medication Medications: Active Medications Generic Name Dose Route Start Last Admin Trade Name Freq PRN Reason Stop Dose Admin Acetaminophen 650 mg 05/12/20 16:50 05/21/20 23:49 Acetaminophen 325 Mg Tab PO 650 mg Q4H PRN Administration Headache/Fever/Mild Pain (1-3) Albuterol/Ipratropium 3 ml 05/13/20 13:00 05/22/20 13:23 Ipratropium/Albuterol Sulfate 3 Ml Neb NEB 3 ml [id number] ELAINE Administration Alprazolam 0.25 mg 05/12/20 17:29 05/20/20 10:33 Alprazolam 0.25 Mg Tab PO 0.25 mg TIDPRN PRN Administration Anxiety Benzonatate 100 mg 05/12/20 20:56 05/21/20 19:55 Benzonatate 100 Mg Cap PO 100 mg TIDPRN PRN Administration Cough Docusate Sodium 100 mg 05/20/20 19:38 05/21/20 19:59 Docusate 100 Mg Cap PO 100 mg BIDPRN PRN Administration Constipation Megestrol Acetate 40 mg 05/15/20 21:00 05/22/20 08:41 Megestrol Acetate 40 Mg Tab PO 40 mg BID ELAINE Administration Tramadol HCl 50 mg 05/13/20 06:52 05/17/20 21:34 Tramadol Hcl 50 Mg Tab PO 50 mg Q6HR PRN Administration Moderate to Severe Pain (6-10) - Exam General Appearance: NAD, awake alert Eye: PERRL ENT: normocephalic atraumatic, no oropharyngeal lesions Neck: no JVD Heart: RRR, no murmur, no gallops, no rubs Respiratory: CTAB, no wheezes, no rales, no ronchi Gastrointestinal: soft, non-tender, non-distended, normal bowel sounds Extremities: no cyanosis, no clubbing, no edema Skin: normal turgor, no lesions Neurological: cranial nerve grossly intact, normal sensation to touch, no weakness Hosp A/P - Plan CT chest without contrast: extensive SC emphysema, pneumomediastinum, right hydropneumothorax, bilateral pulmonary metastases, with increase in size of right suprahilar mass Chest X ray 05/20: improving subcutaneous emphysema. Stable right sided chest mass and right sided pleural lung changes This is a 74 year old Mandarin Speaking patient with stage IV pulmonary adenocarcinoma presenting with facial swelling, found to have extensive subcutaneous emphysema, pneumomediastinum and right hydropneumothorax with worsening right suprahilar mass #Acute hypoxic respiratory failure secondary to stage IV non-small cell lung cancer with malignant pleural effusion s/p pleurovac/subcutaneous emphyesma and right hydropneumothorax - patient has been weaned to 2.5L and is saturating 99% - chest x ray 05/20 shows improving subcutaneous emphysema. Right lung mass stable in size. She still has a persistent air leak - transfer pending to [facility] for second CT opinion per son request. - I will repeat labs today Hyponatremia - resolved, sodium up to 138. Nephrology was on board Anemia - Hb 9 Hypertension -off meds History of PE - xarelto has been on hold
[2020-05-22] MEDS: Acetaminophen 325 MG TAB PO PRN (15:49)
[2020-05-22 17:19] LABS: Hemoglobin 8.6 g/dL (12.0-16.0); Mean Corpuscular HGB CONC 32.4 g/dL (32.0-36.0); Mean Corpuscular Hemoglobin 25.9 pg (27.0-31.0); Mean Corpuscular Volume 80.1 fL (78.0-98.0); Platelet Count 248 thou/uL (130-400); RBC Distribution Width 13.1 % (11.5-14.5); Red Blood Cell (RBC) Count 3.31 mill/uL (4.20-5.40); White Blood Cell (WBC) Count 5.7 thou/uL (4.8-10.8)
[2020-05-22 17:37] LABS: Anion Gap 13 mmol/L (10-20); BUN (Urea Nitrogen) 18 mg/dL (9.8-20.1); Calc. Creatinine Clearance 57 mL/min (70-130); Calcium 8.3 mg/dL (7.8-10.44); Carbon Dioxide 24 mmol/L (23-31); Chloride 100 mmol/L (98-107); Glucose 116 mg/dL (83-110); Potassium 4.2 mmol/L (3.5-5.1); Sodium 133 mmol/L (136-145)
--- NOTE | 2020-05-22 18:45 | PDOC.DS.DS ---
Provider - Provider Date of Admission: 05/13/20 14:05 Date of Discharge: 05/22/20 Admitting Provider: Tanja Hills MD Consultations: Nephrology (Dr. Benton Brown), Oncology (Dr. Fredo Doran), Other (Cardiothoracic surgery with Dr. Rosas Gaviria) Primary Care Physician: [facility] Course - Hospital Course Hospital Course: Discharge Diagnoses: 1. Non-small cell lung cancer 2. Hyponatremia 3. Anemia 4. History of pulmonary embolism Brief HPI: This 74-year-old female with a history of right-sided lung cancer who presented to the emergency room due to difficulty swallowing and breathing. She was noted to have new facial swelling as well as pain in her chest wall face and neck. She had recent placement of a pleural VAC on 05/08/2020 after a thoracentesis on 06/06 showed non-small cell lung cancer. Patient was following with Dr. Doran from oncology and was previously on Tagrisso with plans to start Keytruda and chemotherapy. When she presented to the emergency room, she was placed on 4 L nasal cannula saturating 97%. Chest x-ray showed severe subcutaneous emphysema and a large left lung mass with severe left hemithorax and a large right-sided air-filled pleural cavity. The patient was admitted for further work-up. Hospital Course: #Acute hypoxic respiratory failure secondary to stage IV non-small cell lung cancer with malignant pleural effusion s/p pleurovac/subcutaneous emphyesma and right hydropneumothorax: the patient was found to have left sided hemithorax and right-sided pneumothorax. Cardiothoracic surgery was consulted and her chest tube was hooked up to her Pleurex catheter and the air-leak decreased substantially afterwards. Her Pleurx catheter was placed to suction. She continues to have a moderate amount of air leak but her pneumothorax has decreased in size on serial Xrays. Her subcutaneous emphysema has improved also. Per cardiothoracic surgery, they feel that the patient has a necrotic right lung and her air leak will never resolve because of this. Oncology was consulted for lung cancer and they initially felt that she was not a candidate for chemotherapy due to her pneumothorax, but may consider chemo or immunotherapy at some point. The patient son requested a second surgical opinion at [facility]. I have spoken to the cardiothoracic surgeon there who is excepted her for transfer for alternative evaluation of possible pleurodesis versus VATS. 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 This improved to 138 and has dropped again to 133 today. Nephrology was consulted. She did receive IV fluids until 05/18 and tolvaptan on 05/18. Consider further monitoring History of PE: xarelto has been on hold due to pleurex catheter that is in here at this time and in anticipation of any other surgical procedures. Pertinent Studies: Chest X ray 05/12: Intact pleural drainage catheter without adequate expansion of the right lung creating a large air-filled right pleural cavity. The left for low-grade mediastinal shift is unchanged. Large right lung cancer. Severe left hemithorax with pulmonary metastases. Severe subcutaneous emphysema CT chest 05/13: Extensive subcutaneous emphysema, pneumomediastinum and right hydropneumothorax and bilateral pulmonary metastases with interval increase in the size of the right suprahilar mass. This is about 7 cm in size. No pleural or pericardial effusion is noted. Chest X ray 05/13: extensive SC emphysema Chest X ray 05/15: mild to moderate right pneumothorax Chest X ray 05/17: apical pneumothorax present. Extensive SC emphysema seen over the chest Chest X ray 05/18: trace right apical pneumothorax. Extensive SC emphysema. Stable right lung mass. Chest X ray 05/10: improving subcutaneous emphysema, otherwise stable Resuscitation Status: 05/12/20 16:50 Resuscitation Status Routine Co-Sign Provider: Resuscitation Status: FULL: Full Resuscitation - Labs Lab Results: 05/22/20 17:00 05/22/20 17:00 Abnormal Lab Results - Last 48 hrs 05/22/20 17:00: Sodium 133 L 05/22/20 17:00: RBC 3.31 L, Hgb 8.6 L, Hct 26.5 L, MCH 25.9 L, MPV 7.0 L - Physical Exam Vitals: Vital Signs (12 hours) Temp Pulse Resp BP Pulse Ox 05/22/20 15:49 100.1 F H 05/22/20 15:37 100.1 F H 102 H 20 115/89 97 05/22/20 13:23 93 20 98 05/22/20 12:00 98.4 F 98 18 123/68 98 05/22/20 08:00 98.5 F 101 H 18 117/65 98 05/22/20 07:09 96 12/21/20 07:08 100 20 96 Weight Admit Weight 112 lb 1.6 oz Weight 112 lb 1.6 oz Physical Exam: The patient was seen and examined on the day of discharge. General: patient is alert, awake, oriented times three CV: RRR, no murmurs, rubs, gallops Lungs: CTAB Abdomen: +BS, soft, nontender, nondistended Legs: no edema no SC emphysema palpable. No facial swelling Problem - Discharge Plan Plan of Treatment: You will be transferred to [facility] for further care. - Time spent with Patient (mins): 40 Plan - Discharge Medications Home Medications: Medication Instructions Recorded Confirmed Type Benzonatate [Tessalon] 100 mg PO TID PRN 11/17/19 05/12/20 History Albuterol Sulfate [Albuterol 2.5 mg NEB Q8H PRN 11/18/19 05/12/20 History Sulfate Neb] Albuterol Sulfate [Albuterol 2 mg NEB TID 02/28/20 05/12/20 History Sulfate Syrup] traMADol HCl [Tramadol HCl] 50 mg PO Q6HR PRN 05/12/20 05/12/20 History Allergies: No Known Allergies Allergy (Verified 05/12/20 20:32) - Discharge Instructions Discharge Instructions:: You presented with a right sided pneumothorax and extensive subcutaneous emphysema, pneumomediastinum, right hydropneumothoax and bilateral pulmonary metastases. You had a chest tube placed to suction that is hooked up to your pleurex and you still have a persistent air leak. You will be transferred to [facility] for a second surgical opinion. You can consider starting your lung cancer treatment at [facility] if you desire. Transfer to [facility] for second opinion. Notify staff of any questions, or irene rning symptoms while there. Activity:: Activity as Tolerated - Follow up Plan Referrals: [facility] [Primary Care Provider] - (follow-up after discharge from [facility]) Disposition: HOME Quality - Care Measures CORE MEASURES:: N/A
[2020-05-22 19:35] VITALS: BP 112/59; TEMP 99
== END 2020-05-22 21:34 | disposition short-term general hospital (02) | DRG 199 ==
LOC: ERS 11:59 → ONC 19:07 → OBSVTOIN 05-13 14:05
PROVIDERS: ADMIT Internal Medicine; ATTEND Internal Medicine
DX: J93.83 Other pneumothorax (principal); J96.01 Acute respiratory failure with hypoxia; C34.91 Malignant neoplasm of unspecified part of right bronchus or lung; J91.0 Malignant pleural effusion; E22.2 Syndrome of inappropriate secretion of antidiuretic hormone; C79.9 Secondary malignant neoplasm of unspecified site; J98.2 Interstitial emphysema; J95.812 Postprocedural air leak; Z20.828 Contact with and (suspected) exposure to other viral communicable diseases; Z51.5 Encounter for palliative care; F41.9 Anxiety disorder, unspecified; Y83.8 Other surgical procedures as the cause of abnormal reaction of the patient, or of later complication, without mention of misadventure at the time of the procedure; M17.11 Unilateral primary osteoarthritis, right knee; I10 Essential (primary) hypertension; Z86.711 Personal history of pulmonary embolism; Z79.01 Long term (current) use of anticoagulants; Z79.51 Long term (current) use of inhaled steroids; Z79.52 Long term (current) use of systemic steroids; Z79.899 Other long term (current) drug therapy
CPT/HCPCS: 36415; 71045; 71250; 80048; 80053; 81001; 82533; 82570; 83880; 83935; 84300; 84443; 84484; 84550; 85025; 85027; 85652; 86140; 93005; 94640; 96374; 96375; G0378; J1100; J1200; J7620; S0028; S0179

== ENCOUNTER 2020-07-04 17:58 | Inpatient (IN) | payer OTHER ==
[2020-07-04 18:46] LABS: #Basophils 0.1 thou/uL (0.0-0.2); #Lymphocytes 1.6 thou/uL (1.20-3.40); #Monocytes 0.9 thou/uL (0.11-0.59); #Neutrophils 5.5 thou/uL (1.40-6.50); %Basophils 0.7 % (0.0-1.0); %Eosinophils 0.2 % (0.0-10.0); %Lymphocytes 19.5 % (21.0-51.0); %Monocytes 11.4 % (0.0-10.0); %Neutrophils 68.2 % (42.0-75.0); Hemoglobin 8.4 g/dL (12.0-16.0); Mean Corpuscular HGB CONC 31.3 g/dL (32.0-36.0); Mean Corpuscular Hemoglobin 24.4 pg (27.0-31.0); Mean Corpuscular Volume 77.8 fL (78.0-98.0); Mean Platelet Volume 6.9 fL (7.4-10.4); Platelet Count 368 thou/uL (130-400); RBC Distribution Width 14.7 % (11.5-14.5); Red Blood Cell (RBC) Count 3.46 mill/uL (4.20-5.40)
[2020-07-04 19:11] LABS: ALT (SGPT) 12 U/L (8-55); AST (SGOT) 26 U/L (5-34); Albumin 3.2 g/dL (3.4-4.8); Alkaline Phosphatase 100 U/L (40-110); Anion Gap 13 mmol/L (10-20); BUN (Urea Nitrogen) 18 mg/dL (9.8-20.1); Bilirubin, Total 0.6 mg/dL (0.2-1.2); Calc. Creatinine Clearance 0 mL/min (70-130); Calcium 8.5 mg/dL (7.8-10.44); Carbon Dioxide 24 mmol/L (23-31); Chloride 92 mmol/L (98-107); Globulin 4.5 g/dL (2.4-3.5); Glucose 119 mg/dL (83-110); Potassium 4.4 mmol/L (3.5-5.1); Protein, Total 7.7 g/dL (5.8-8.1); Sodium 125 mmol/L (136-145)
--- NOTE | 2020-07-04 19:17 | RAD ---
EXAM: CHEST ONE VIEW HISTORY: Shortness of breath for 3 days. History of recent pneumothorax. COMPARISON: 05/20/2020 FINDINGS: Right-sided Mediport catheter remains in place. Large right hilar/suprahilar mass is again seen. Mult iple pulmonary nodules are seen diffusely throughout the lungs. Moderate-sized bilateral pleural effusions and associated atelectasis are seen. Right lung apex is excluded from view due to patient's overlying jaw and mandible. Previously seen right-sided thoracostomy tube has been removed. Subcutaneous emphysema on the prior study has resolved. No other interval change. IMPRESSION: 1. Moderate bilateral pleural effusions and atelectasis which has increased on the left. 2. Large right hilar/suprahilar mass with multiple metastatic pulmonary nodules. 3. Parenchymal opacity right upper lung zone adjacent to the large right hilar mass which may represe nt a portion of the mass. However postobstructive changes or pneumonitis is a possibility.
[2020-07-04 22:10] LABS: SARS-CoV-2 NAA Rapid Test Not Detected (NotDetected)
[2020-07-04 22:16] LABS: Lactic Acid 1.3 mmol/L (0.5-2.2)
[2020-07-05] MEDS ORDERED: Sodium Chloride 0.9% 500 ML IV SCH (00:30)
[2020-07-05 00:41] VITALS: BMI 18.8
[2020-07-05] MEDS: Sodium Chloride 0.9% 1,000 ML IV SCH ×2 (00:58→20:37)
[2020-07-05] MEDS: cefTRIAXone\\ROCEPHIN 1 GM in Sodium Chloride 0.9% 100 ML IVPB SCH (01:03)
--- NOTE | 2020-07-05 07:15 | PDOC.HHP ---
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 Of note patient has a history of lung cancersmall cell and was seen with hemopneumoperitoneum a month ago and had a Pleur-evac for drainage. She was assessed by oncology and was considering a second day for chemotherapy. Apparently she was transferred to [facility] where she had pleurodesis and was later on discharge. However over the past 3 days she has been having worsening cough shortness of breathpresented today for further evaluation. She is not Serbian-speakinghis son does all interpretation. At presentation blood pressure was 131/89, pulse 81, respiratory rate 22, temperature 91.1 and saturation 99% on 4 L. Labs showed lactate of 2.4, Covid test was negative. Sodium was low at 125, WBC 8.0, hemoglobin 8.4 and platelet count was 386. Chest x-ray showed moderate bilateral pleural effusion atelectasis which has increased on the left also has large right hilar and suprahilar mass with multiple metastatic pulmonary nodules. She was admitted normal saline. Hospitalist team consulted for admission Allergies/Adverse Reactions: Allergy/AdvReac Type Severity Reaction Status Date / Time No Known Allergies Allergy Verified 07/05/20 00:48 Home Medications: Medication Instructions Recorded Confirmed Type Lisinopril 10 mg PO DAILY 07/05/20 07/05/20 History Metoprolol Tartrate 50 mg PO Q8HR 07/05/20 07/05/20 History Rivaroxaban [Xarelto] 20 mg PO DAILY 07/05/20 07/05/20 History Past History: PMHx: PSHx: FHx: Social: Hospitalist Exam Vitals: Vital Signs (12 hours) Temp Pulse Resp BP Pulse Ox 07/05/20 00:20 97.8 F 74 28 H 130/65 97 Weight Weight 100 lb 1.438 oz Hospitalist Results Result Diagrams: 07/04/20 18:31 07/04/20 18:31 Lab results: Laboratory Last Values WBC 8.0 thou/uL (4.8-10.8) 07/04/20 18:31 RBC 3.46 mill/uL (4.20-5.40) L 07/04/20 18:31 Hgb 8.4 g/dL (12.0-16.0) L 07/04/20 18: Hct 26.9 % (36.0-47.0) L 07/04/20 18: MCV 77.8 fL (78.0-98.0) L 07/04/20 18: MCH 24.4 pg (27.0-31.0) L 07/04/20 18: MCHC 31.3 g/dL (32.0-36.0) L 07/04/20 18: RDW 14.7 % (11.5-14.5) H 07/04/20 18: Plt Count 368 thou/uL (130-400) 07/04/20 18: MPV 6.9 fL (7.4-10.4) L 07/04/20 18: Neutrophils % 68.2 % (42.0-75.0) 07/04/20 18: Lymphocytes % 19.5 % (21.0-51.0) L 07/04/20 18: Monocytes % 11.4 % (0.0-10.0) H 07/04/20 18: Eosinophils % 0.2 % (0.0-10.0) 07/04/20 18: Basophils % 0.7 % (0.0-1.0) 07/04/20 18: Neutrophils # 5.5 thou/uL (1.40-6.50) 07/04/20 18: Lymphocytes # 1.6 thou/uL (1.20-3.40) 07/04/20 18: Monocytes # 0.9 thou/uL (0.11-0.59) H 07/04/20 18: Eosinophils # 0.0 thou/uL (0.0-0.7) 07/04/20 18: Basophils # 0.1 thou/uL (0.0-0.2) 07/04/20 18: Sodium 125 mmol/L (136-145) L 07/04/20 18: Potassium 4.4 mmol/L (3.5-5.1) 07/04/20 18: Chloride 92 mmol/L (98-107) L 07/04/20 18:31 Carbon Dioxide 24 mmol/L (23-31) 07/04/20 18:31 Anion Gap 13 mmol/L (10-20) 07/04/20 18:31 BUN 18 mg/dL (9.8-20.1) 07/04/20 18:31 Creatinine 0.60 mg/dL (0.6-1.1) 07/04/20 18:31 Estimated GFR (MDRD) Greater than 90 07/04/20 18:31 Glucose 119 mg/dL (83-110) H 07/04/20 18:31 Lactic Acid 1.3 mmol/L (0.5-2.2) 07/04/20 21:53 Calcium 8.5 mg/dL (7.8-10.44) 07/04/20 18:31 Total Bilirubin 0.6 mg/dL (0.2-1.2) 07/04/20 18:31 AST 26 U/L (5-34) 07/04/20 18:31 ALT 12 U/L (8-55) 07/04/20 18:31 Alkaline Phosphatase 100 U/L (40-110) 07/04/20 18:31 Creatine Kinase 41 U/L (29-168) 07/04/20 18:30 Troponin I 0.015 ng/mL (< 0.028) 07/04/20 18:30 Serum Total Protein 7.7 g/dL (5.8-8.1) 07/04/20 18:31 Albumin 3.2 g/dL (3.4-4.8) L 07/04/20 18:31 Globulin 4.5 g/dL (2.4-3.5) H 07/04/20 18:31 Albumin/Globulin Ratio 0.7 g/dL (1.2-2.2) L 07/04/20 18:31 Influenza A RNA INAAT Not Detected (NotDetected) 07/04/20 20:33 Influenza B RNA INAAT Not Detected (NotDetected) 07/04/20 20:33 SARS-CoV-2 Rap RNA(RT-PCR) Not Detected (NotDetected) 07/04/20 20:33 Hospitalist H&P A/P Plan: This is 74-year-old male patient history of hypertension recently diagnosed muscle lung cancer not amenable to chemotherapy presented with worsening sh ortness of breath. She has worsening pleural effusion. Acute hypoxic respiratory failure Secondary to bilateral pleural effusion in setting of lung cancer We will admit and have pulmonology evaluate in a.m. possible drainage. Small cell lung cancer We will have heme-onc reevaluate in a.m. Hyponatremia Secondary to SIADH We will fluid restrict monitor BMP General poor prognosis We will consult palliative care to discuss goals of care VT prophylaxisLovenox CODE STATUSfull code
[2020-07-05] MEDS: Azithromycin 500 MG in Sodium Chloride 0.9% 250 ML 250 ML IVPB SCH (07:29)
[2020-07-05] MEDS ORDERED: hydrALAZINE 20 MG/ML VIAL SLOW IVP PRN (11:42)
[2020-07-05] MEDS: Morphine 2 MG/ML VIAL SLOW IVP PRN ×3 (11:58→20:42)
[2020-07-05] MEDS: Enoxaparin Sodium 40 MG/0.4 ML SYRINGE SC SCH (12:04)
[2020-07-05] MEDS ORDERED: Enalaprilat Dihydrate 1.25 MG/ML VIAL SLOW IVP SCH (14:30)
[2020-07-05] MEDS: Metoprolol Tartrate 50 MG TAB PO SCH ×2 (14:59→20:38)
--- NOTE | 2020-07-05 16:03 | PDOC.PALCO ---
Palliative Care Consult - Consult Details Requesting Physician: Dr Domínguez Reason for Consult: goals of care, advance directives assistance, assistance with communication prognosis/disease, family support, complex decision-making Family Members Present: Son -Martha Mancilla - Pertinent HPI 74-year-old female patient admitted on July 04, 2020 for worsening shortness of breath. She has a history of hypertension, small cell lung carcinoma not zulma nable to chemotherapy and bilateral pleural effusions. A month ago she had a Pleur-evac for a pleural effusion and had a pneumothorax. She was transferred to [facility] in [place] for pleurodesis and DC'd to home. She moved from [place] 2 years ago with her to live with her son. He does not know what her baseline was in [place] but he did not feel like she was extremely ill when she arrived here. She and her are not Estonian speaking. The son has been living in [facility] for 25 years. He states that they have a poor understanding of healthcare verbiage and a large amount of time was spent teaching him about advanced directives and complexity of care. We discussed that the bilateral pleural effusions occur secondary to her small cell lung carcinoma which is a large right hilar and suprahilar mass with metastatic pulmonary nodules. Her oncologist is Dr. Doran and they are considering the possibility of chemotherapy. The son would like her to return to his home in [place] with home health. He is indecisive about establishing advanced directives as he wishes to discuss this further with her and 2 siblings. He will try to make a decision by tomorrow. At the bedside visit, the patient opens her eyes to voice but is nonverbal and appears very very weak. She is on 100% nonrebreather mask with a respiratory rate of 40 and O2 saturation of 100%. I will revisit with him tomorrow to follow-up on my discussions of today. - Pertinent PMH Small cell lung carcinoma not amenable to chemotherapy, bilateral pleural effusi ons, history of hypertension - Social History Smoking Status: Never smoker Alcohol Use: none Drug Use History: none Living Situation: other (Lives with son Rosendo Mancilla- [phone]) - Medications MAR Reviewed: Yes - Allergies Allergies/Adverse Reactions: Allergies Allergy/AdvReac Type Severity Reaction Status Date / Time No Known Allergies Allergy Verified 07/05/20 00:48 - Subjective Non verbal - ROS Non Response: due to mental status (RR 40 on 100% NRB) - Objective Vital Signs: Vital Signs - Most Recent Temp Pulse Resp BP Pulse Ox 97.9 F 79 24 H 187/105 H 100 07/05/20 12:00 07/05/20 12:00 07/05/20 12:00 07/05/20 12:00 07/05/20 12:00 - Physical Exam Constitutional: cachectic, ill appearing, mild distress HEENT: moist MMs, sclera anicteric Respiratory: clear to auscultation bilateral, accessory muscle use, tachypnea Cardiovascular: no rub, no significant murmur, RRR Gastrointestinal: continent Genitourinary: perez catheter Musculoskeletal: no cyanosis, no clubbing, no edema (Very weak spontaneous movements) Skin: cap refill <2 seconds, no rash, normal turgor Deviation from normal: Eyes open to voice, weakly moves hands - Problem List (1) Palliative care encounter Code(s): Z51.5 - ENCOUNTER FOR PALLIATIVE CARE Current Visit: Yes Status: Acute (2) Pneumothorax Code(s): J93.9 - PNEUMOTHORAX, UNSPECIFIED Current Visit: No Status: Acute Qualifiers: Pneumothorax type: other pneumothorax Qualified Code(s): J93.83 - Other pneumothorax (3) Malignant pleural effusion Code(s): J91.0 - MALIGNANT PLEURAL EFFUSION Current Visit: Yes Status: Chronic (4) Shortness of breath Code(s): R06.02 - SHORTNESS OF BREATH Current Visit: Yes Status: Chronic - Plan/Recommendations Plan: Introduction of palliative care team to establish goals of care-son is MPOA and is not well versed in healthcare so extensive discussion about prognosis and treatment options. Currently he is indecisive about establishing DNAR status. Discussed process of a resuscitation and the remote chance that it would be successful in the event of a cardiac/respiratory arrest. He will discuss with his father and siblings toncarlos a. Advanced directive paperwork will be left at the bedside for him to review. Discussed the complexity of care and decision making. Oncologist will be visiting tomorrow to help him to establish what his options are. They are considering chemotherapy. Family support and coping issues-discussed the difficulty of being the decision maker for the family when long distance relationships and cultural barriers exist. He is willing to learn. His ultimate goal is that she would return home to his house to live with her 90 minutes spent on this encounter with >50% of the time in counseling and coordination of care. Thank you for this very appropriate consult.
--- NOTE | 2020-07-05 17:16 | PDOC.HOSPP ---
- Subjective Encounter Date: 07/05/20 Subjective: Patient is non-Icelandic speaking. Per his preference the patient translated. The patient has a history of severe metastatic lung cancer with large obstructing lesion in the right mediastinum. Patient was recently admitted here and subsequently transferred to [place] because the patient's son wanted a second opinion. She appears to have significant hydropneumothorax on the right requiring pleurodesis. Patient returned here with shortness of breath and appears to have some potential new fluid collection on the left. - Objective Vital Signs & Weight: Vital Signs (12 hours) Temp Pulse Resp BP Pulse Ox 07/05/20 16:08 98.4 F 68 22 H 150/73 H 96 07/05/20 16:00 97.9 F 71 19 150/73 H 97 07/05/20 12:00 97.9 F 79 24 H 187/105 H 100 07/05/20 11:10 97.9 F 79 20 187/105 H 100 07/05/20 08:00 98.1 F 97 29 H 117/68 97 07/05/20 07:23 98.1 F 97 20 117/78 97 Weight Admit Weight 100 lb Weight 100 lb 1.438 oz Result Diagrams: 07/04/20 18:31 07/04/20 18:31 Hospitalist ROS - Medication Medications: Active Medications Generic Name Dose Route Start Last Admin Trade Name Freq PRN Reason Stop Dose Admin Enoxaparin Sodium 40 mg 07/05/20 09:00 07/05/20 12:04 Enoxaparin Sodium 40 Mg/0.4 Ml Syringe SC 40 mg 0900 ELAINE Administration Azithromycin 500 mg/ Sodium 250 mls @ 250 mls/hr 07/05/20 01:00 07/05/20 07:29 Chloride IVPB Not Given Q24HR ELAINE Ceftriaxone Sodium 1 gm/ 100 mls @ 200 mls/hr 07/05/20 01:00 07/05/20 01:03 Sodium Chloride IVPB 100 mls Q24HR ELAINE Administration Sodium Chloride 1,000 mls @ 50 mls/hr 07/05/20 00:45 07/05/20 00:58 Normal Saline 0.9% IV 1,000 mls .Q20H ELAINE Administration Metoprolol Tartrate 50 mg 07/05/20 14:00 07/05/20 14:59 Metoprolol Tartrate 50 Mg Tab PO 50 mg Q8HR ELAINE Administration Morphine Sulfate 1 mg 07/05/20 11:41 07/05/20 16:35 Morphine 2 Mg/Ml Vial SLOW IVP 1 mg Q4H PRN Administration Dyspnea Sodium Chloride 10 ml 07/05/20 09:00 07/05/20 12:05 Flush - Normal Saline 10 Ml Syringe IVF Not Given Q12HR [facility] Hospitalist Exam Vitals: Vital Signs (12 hours) Temp Pulse Resp BP Pulse Ox 07/05/20 16:08 98.4 F 68 22 H 150/73 H 96 07/05/20 16:00 97.9 F 71 19 150/73 H 97 07/05/20 12:00 97.9 F 79 24 H 187/105 H 100 07/05/20 11:10 97.9 F 79 20 187/105 H 100 07/05/20 08:00 98.1 F 97 29 H 117/68 97 07/05/20 07:23 98.1 F 97 20 117/78 97 Weight Admit Weight 100 lb Weight 100 lb 1.438 oz General - other findings: Initial visit patient was very tachypneic and uncomfortable. Better on 2nd Heart: RRR, no murmur, no gallops Respiratory - other findings: Minimal air exchange on the right with diffuse rales. Rales left base Gastrointestinal: soft, non-tender, non-distended, normal bowel sounds, no palpable masses, no hepatomegaly, no splenomegaly, no bruit Extremities: no cyanosis, no clubbing, no edema Skin: normal turgor Musculoskeletal: generalized weakness Hosp A/P (1) Metastatic primary lung cancer Code(s): C34.90 - MALIGNANT NEOPLASM OF UNSP PART OF UNSP BRONCHUS OR LUNG Status: Acute (2) Acute respiratory failure with hypoxia Code(s): J96.01 - ACUTE RESPIRATORY FAILURE WITH HYPOXIA Status: Acute (3) Malignant pleural effusion Code(s): J91.0 - MALIGNANT PLEURAL EFFUSION Status: Chronic (4) Shortness of breath Code(s): R06.02 - SHORTNESS OF BREATH Status: Chronic (5) History of pulmonary embolism Code(s): Z86.711 - PERSONAL HISTORY OF PULMONARY EMBOLISM Status: Chronic (6) Hypertension Code(s): I10 - ESSENTIAL (PRIMARY) HYPERTENSION Status: Chronic Qualifiers: Hypertension type: essential hypertension Qualified Code(s): I10 - Essential (primary) hypertension - Plan This patient unfortunately has advanced metastatic lung cancer with severe damage occurring to the lungs and thorax in the form of hydropneumothoraces requiring pleurodesis on the right. Now presents with worsening shortness of breath and evidence of fluid accumulation L on the left hemithorax. The initial thought was the patient may be amenable to some type of thoracentesis that could improve her initial breathing issues. Have reviewed the case with Dr. Navarro. He feels like there is not much opportunity for intervention in this situation. Recommendation is hospice. I have reviewed the case with Dr. Doran. Given the receptor profile on this patient's tumor based on her biopsy she will not be a candidate for Keytruda alone. She is not a candidate for chemotherapy in combination with Keytruda either at this time. Therefore essentially there are no chemotherapy options available to the patient. The recommendation is hospice. Dr. Doran indicates that hospice and palliative care have been discus sed with the patient and her son on a number of occasions and they have not been amenable to that as of yet. I had a long conversation with the patient's son with this information in hand. He indicated to me that he wants to continue to push to have a possible thoracentesis. Ultimately he revealed that he is trying to buy some time for her because he would like to get her rebiopsied. I did exp kristin to him that she does not have any real treatment options at this point. Strongly encouraged him to consider the fact that even if we were to try to address any of the small issues it would not change the big picture. She still has terminal cancer and that is still advancing. She would undoubtedly have recurrent or new complications arising again very shortly. He appears to be completely unrealistic in his approach and expectations. He asked that I call Dr. Misael Avery at [facility]. He performed her most recent procedure there. I have subsequently talked to Dr. Hoskins. He agrees that there is no further opportunity for significant intervention and agreed that the patient would be best served by pursuing a palliative approach. Of note when I was in the room the second time talking with the patient's son the patient was apparently much better and breathing more comfortably on nasal cannula. When the nurse came in she called him over and spoke to him and the son translated. She essentially said that she felt like the morphine that we had given her was very beneficial and she would like some more of that. I tried to reiterate to the son at that time that this is the type of approach we should be taking with her and focusing on keeping her more comfortable. Palliative care has been consulted. Case was reviewed with Vika Harrington who indicated she would likely be the 1 to come see the patient on behalf of oncology. In spite of only conversations the patient w ould like his mother to remain full code. Clearly her overall prognosis is extremely poor and this will be a terminal cancer for her. Her blood pressure was significantly elevated early in the day. This improved significantly after she received some morphine and her respiratory situation settled a bit. Time spent in direct patient care today was 40 minutes
--- NOTE | 2020-07-05 18:17 | PDOC.EVN ---
Event Note - Event Note Event Note: Can had another conversation with the patient son after speaking to the surgeon in [place]. He agreed that there was no further interventional opportunities for this patient. I explained this to the patient's son. His mother continues to be very tachypneic and unfortunately will eventually fatigue. Again we addressed the concerns for her comfort. He is amenable to allowing me to increase her morphine a bit. However, he is still unwilling to consider DNR and is reluctant to discuss hospice. He says he will stay at her bedside for now and would like to go home tomorrow.
[2020-07-05 18:19] LABS: #Lymphocytes 1.7 thou/uL (1.20-3.40); #Monocytes 0.9 thou/uL (0.11-0.59); #Neutrophils 5.8 thou/uL (1.40-6.50); %Basophils 0.1 % (0.0-1.0); %Eosinophils 0.2 % (0.0-10.0); %Lymphocytes 19.9 % (21.0-51.0); %Monocytes 10.2 % (0.0-10.0); %Neutrophils 69.6 % (42.0-75.0); Hemoglobin 8.8 g/dL (12.0-16.0); Mean Corpuscular HGB CONC 31.7 g/dL (32.0-36.0); Mean Corpuscular Volume 78.8 fL (78.0-98.0); Mean Platelet Volume 6.9 fL (7.4-10.4); Platelet Count 393 thou/uL (130-400); RBC Distribution Width 14.8 % (11.5-14.5); Red Blood Cell (RBC) Count 3.51 mill/uL (4.20-5.40); White Blood Cell (WBC) Count 8.3 thou/uL (4.8-10.8)
[2020-07-05 18:37] LABS: Anion Gap 14 mmol/L (10-20); BUN (Urea Nitrogen) 20 mg/dL (9.8-20.1); Calc. Creatinine Clearance 59 mL/min (70-130); Calcium 8.3 mg/dL (7.8-10.44); Carbon Dioxide 24 mmol/L (23-31); Chloride 96 mmol/L (98-107); Glucose 132 mg/dL (83-110); Potassium 4.6 mmol/L (3.5-5.1); Sodium 129 mmol/L (136-145)
--- NOTE | 2020-07-05 20:28 | CON ---
DATE OF CONSULTATION: REASON FOR CONSULTATION: Stage IV lung cancer. 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 She had an EGFR mutation and was on Tagrisso. She did well for a while, but unfortunately in April progressed with a large right pleural effusion. She has had multiple thoracenteses in the past. She had a PleurX catheter placement, plan was to start Keytruda. However, she developed pneumothorax with subcu air and was admitted in May. She was eventually transferred to [facility] where she had a pleurodesis and was discharged home where she has been slowly recovering. She began to have progressive shortness of breath over the last several days and presented to the emergency room yesterday and she was COVID negative. She bilateral pleural effusions. She was admitted for treatment. The patient was seen at bedside with son present. She is on nasal cannula, but has pursed lip breathing. Her pain is controlled with morphine. PAST MEDICAL HISTORY: Metastatic lung cancer, hypertension, and pulmonary embolism. PAST SURGICAL HISTORY: Eye surgery, PleurX catheter placement, multiple thoracentesis, and pleurodesis. ALLERGIES: NO KNOWN DRUG ALLERGIES. CURRENT MEDICATIONS: 1. Zithromax. 2. Ceftriaxone. 3. Lovenox. 4. Zestril. 5. Lopressor. 6. Morphine. FAMILY HISTORY: No history of cancer. SOCIAL HISTORY: , has 4 children. Lives with her spouse and son. No alcohol, tobacco, or illicit drug use. REVIEW OF SYSTEMS: Deferred due to language barrier. PHYSICAL EXAMINATION: VITAL SIGNS: Temperature is 98.4, pulse is 68, respiratory rate 22, blood pressure is 150/73. She is 96% on 4 L. GENERAL: This is a chronically ill-appearing female, in mild respiratory distress. HEENT: Normocephalic, atraumatic. NECK: Supple. CV: Regular rate and rhythm. LUNGS: Diminished throughout. ABDOMEN: Soft. NEUROLOGIC: Nonfocal. PERTINENT LABORATORY DATA AND X-RAYS: WBCs are 8, hemoglobin 8.4, hematocrit 26.9, platelet count is 368,000, 68% neutrophils, 20% lymphocytes. Sodium 125, potassium 4.4, chloride 92, CO2 is 24, BUN is 18, creatinine 0.6. Lactic acid 2.4, calcium 8.5, bilirubin 0.6, AST is 26, ALT is 12, alkaline phosphatase is 100. Serum total protein is 7.7, albumin 3.2, globulin 4.5. COVID RNA negative. Chest x-ray showed bilateral pleural effusions, large right hilar mass with multiple metastatic pulmonary nodules. ASSESSMENT: 1. Metastatic lung cancer, off treatment since April. 2. Bilateral pleural effusions, status post pleurodesis. 3. Acute on chronic respiratory distress. DISCUSSION: The patient's son was at bedside. He insists that his mother has improved and would be able to tolerate chemotherapy. He wishes to also continue Tagrisso which she progressed on in April. We did discuss progression of disease, recurrence of pleural effusions, and the code status. The patient declined to make decision at this time. I feel like he has unreasonable expectations regarding his mother's disease. She has been made comfortable with morphine and is off the non- rebreather. now on the nasal cannula. I have asked Dr. Doran to see the patient, son, and discuss with him further. Thank you for the consult. Job ID: [id number] [facility]
[2020-07-05] MEDS: Benzonatate 100 MG CAP PO PRN (23:44)
[2020-07-05] MEDS ORDERED: Furosemide 40 MG/4 ML VIAL SLOW IVP SCH (23:45)
[2020-07-05] MEDS ORDERED: Furosemide 40 MG/4 ML VIAL ONE (23:49)
[2020-07-06] MEDS: cefTRIAXone\\ROCEPHIN 1 GM in Sodium Chloride 0.9% 100 ML IVPB SCH ×2 (00:03→23:58)
--- NOTE | 2020-07-06 00:13 | RAD ---
EXAM: CHEST ONE VIEW HISTORY: Tachypnea and shortness of breath. COMPARISON: 07/04/2020 FINDINGS: Right-sided Mediport remains in place. Large right hilar/suprahilar mass is again seen with multiple bilateral pulmonary nodules again present. Moderate size bilateral pleural effusions are present with associated volume loss. No obvious right-sided pneumothorax is identified. No other interval dori nge IMPRESSION: Stable chest.
[2020-07-06 00:14] LABS: Base Excess (BEa) 1.6 mEq/L (-2.0 to +3.0); Calcium, Ionized (arterial) 1.16 mmol/L (1.12-1.30); Carboxyhemoglobin (COHb) 0.7 gm% (0.0-3.0); Hemoglobin (Hb) 9.7 g/dL (12.0-16.0); O2 Tension (PaO2), arterial 70.8 mmHg (> 70.0); Potassium - ABG Lab 3.78 mmol/L (3.70-5.30); pH, Arterial 7.43 (7.35-7.45)
[2020-07-06 00:17] LABS: Puncture Site RBA
[2020-07-06] MEDS: Azithromycin 500 MG in Sodium Chloride 0.9% 250 ML 250 ML IVPB SCH ×2 (01:21→23:58)
[2020-07-06] MEDS ORDERED: Acetaminophen 325 MG TAB PO PRN (04:20)
[2020-07-06] MEDS: Metoprolol Tartrate 50 MG TAB PO SCH ×3 (04:53→20:41)
[2020-07-06] MEDS: Lisinopril 10 MG TAB PO SCH (08:29)
[2020-07-06] MEDS: Enoxaparin Sodium 40 MG/0.4 ML SYRINGE SC SCH (08:29)
[2020-07-06] MEDS: Morphine 2 MG/ML VIAL SLOW IVP PRN ×3 (08:31→17:19)
--- NOTE | 2020-07-06 08:43 | PDOC.MOPN ---
Interval History: Spoke to pt and son at bedside, pt provided translation. Pt is unable to stay awake in the bed for prolonged periods. She was able to participate in physical exam. She is on 4L O2. Son states she was starting to walk a little bit at home with a walker after discharge from [place], prior to readmission here. - Vital Signs Vital Signs: Vital Signs (12 hours) Temp Pulse Resp BP Pulse Ox 07/06/20 07:59 97.9 F 72 18 125/80 99 07/06/20 05:37 98.0 F 77 20 100/65 98 07/06/20 01:22 98.0 F 77 24 H 105/66 98 07/06/20 00:02 97.6 F 71 22 H 175/102 H 99 Weight Admit Weight 100 lb Weight 100 lb 1.438 oz - Physical Exam General: Alert, Cooperative, Mild distress HEENT: Atraumatic Lungs: Other (decreased BS in majority of right lung field) Cardiovascular: Regular rate Abdomen: Soft Neurological: Cranial nerves 3-12 NL Psych/Mental Status: Mood NL - Labs Result Diagrams: 07/05/20 18:00 07/05/20 18:00 Lab results: Laboratory Results - last 24 hr 07/06/20 04:10: POC Glucose 114 H 07/06/20 00:12: Specimen Type ARTERIAL, Puncture Site RBA, Bicarbonate Actual 26.0, ABG pH 7.43, ABG pCO2 40.0, ABG pO2 70.8 H, ABG O2 Sat (Measured) 94.7, ABG O2 Content 12.9 L, ABG Base Excess 1.6, ABG Hematocrit 29.0 L, ABG Hemoglobin 9.7 L, ABG Oxyhemoglobin 93.8 L, ABG Carboxyhemoglobin 0.7, ABG Methemoglobin 0.30, ABG Deoxyhemoglobin 5.2 H, Noble Test POSITIVE, A-a O2 Gradient 164.400 H, Ionized Calcium 1.16, Mode of Support NC, Inspired O2 40, Sodium 129 L, Potassium 3.78, Chloride 97 L 07/05/20 19:04: POC Glucose 126 H 07/05/20 18:00: WBC 8.3, RBC 3.51 L, Hgb 8.8 L, Hct 27.6 L, MCV 78.8, MCH 25.0 L, MCHC 31.7 L, RDW 14.8 H, Plt Count 393, MPV 6.9 L, Neutrophils % 69.6, Lymphocytes % 19.9 L, Monocytes % 10.2 H, Eosinophils % 0.2, Basophils % 0.1, Neutrophils # 5.8, Lymphocytes # 1.7, Monocytes # 0.9 H, Eosinophils # 0.0, Basophils # 0.0 07/05/20 18:00: Sodium 129 L, Potassium 4.6, Chloride 96 L, Carbon Dioxide 24, Anion Gap 14, BUN 20, Creatinine 0.59 L, Estimated GFR (MDRD) Greater than 90, Glucose 132 H, Calcium 8.3 A/P - Problem (1) Acute respiratory failure with hypoxia Current Visit: Yes Code(s): J96.01 - ACUTE RESPIRATORY FAILURE WITH HYPOXIA Status: Acute (2) Metastatic primary lung cancer Current Visit: Yes Code(s): C34.90 - MALIGNANT NEOPLASM OF UNSP PART OF UNSP BRONCHUS OR LUNG Status: Acute (3) Malignant pleural effusion Current Visit: Yes Code(s): J91.0 - MALIGNANT PLEURAL EFFUSION Status: Chronic - Plan Plan: I spoketo son in detail regarding his mother's advanced disease, poor PS, and poor prognosis. I do not expect her to get stronger to be able to tolerate chemotherapy. She is not a candidate for single-agent Keytruda which is not active in EGFR+ disease, and this would need to be combined with Chemo. Could consider single-agent chemo but even this she is not a candidate for. I discussed hospice and he is open to this for his mother. Have asked palliative care to discuss with him further.
--- NOTE | 2020-07-06 13:26 | PDOC.PALPN ---
Palliative Progress Note - Subjective Visited patient for follow-up on discussion yesterday regarding goals of care. Dr. Doran has spoken with her son and discussed that she is no longer a candidate for chemotherapy. Phone call placed to patient's son and he now consents for palliative care to consult hospice for inpatient care. credit portfolio manager Nieves informed and will arrange for his selection of the inpatient hospice company to use. Son states that he will be at the hospital at 5 PM tonight to sign the necessary forms. - Objective Vital Signs: Vital Signs - Most Recent Temp Pulse Resp BP Pulse Ox 97.6 F 83 18 132/75 96 07/06/20 11:17 07/06/20 11:17 07/06/20 11:17 07/06/20 11:17 07/06/20 11:17 - Physical Exam Constitutional: cachectic, ill appearing HEENT: EOMI, sclera anicteric Respiratory: clear to auscultation bilateral, no rales, no rhonchi, no wheezing Cardiovascular: no rub, no significant murmur Gastrointestinal: continent Genitourinary: continent Musculoskeletal: no cyanosis, no clubbing, no edema Neurology: moves all 4 limbs, no focal deficits Deviation from normal: Very weak but appears better than yesterday Skin: cap refill <2 seconds, no lesions, normal turgor Deviation from normal: Unable to determine as she is not [place]er speaking - Assessment (1) Palliative care encounter Code(s): Z51.5 - ENCOUNTER FOR PALLIATIVE CARE Current Visit: Yes Status: Acute Assessment: Her son agrees to DO NOT RESUSCITATE and consents for inpatient hospice (2) Pneumothorax Code(s): J93.9 - PNEUMOTHORAX, UNSPECIFIED Current Visit: No Status: Acute Qualifiers: Pneumothorax type: other pneumothorax Qualified Code(s): J93.83 - Other pneumothorax (3) Malignant pleural effusion Code(s): J91.0 - MALIGNANT PLEURAL EFFUSION Current Visit: Yes Status: Chronic (4) Shortness of breath Code(s): R06.02 - SHORTNESS OF BREATH Current Visit: Yes Status: Chronic Assessment: Improved since yesterday (5) Acute respiratory failure with hypoxia Code(s): J96.01 - ACUTE RESPIRATORY FAILURE WITH HYPOXIA Current Visit: Yes Status: Acute (6) Metastatic primary lung cancer Code(s): C34.90 - MALIGNANT NEOPLASM OF UNSP PART OF UNSP BRONCHUS OR LUNG Current Visit: Yes Status: Acute - Plan Plan: Goals of care are to transition to inpatient hospice. credit portfolio manager notified. Per oncologist lung cancer is no longer treatable with chemotherapy and palliative measures are recommended Palliative care will sign off this case 20 minutes spent on this encounter with >50% of the time in counseling and coordination of care. - ROS Non Response: due to mental status (She is more awake today but is nonverbal) Constitutional: alert, lethargic, weakness
[2020-07-06] MEDS ORDERED: Senokot 8.6 MG TAB PO PRN (18:03)
[2020-07-06] MEDS ORDERED: Bisacodyl 5 MG TAB PO PRN (18:04)
--- NOTE | 2020-07-06 18:26 | PDOC.HOSPP ---
- Subjective Encounter Date: 07/06/20 Subjective: Patient indicated she was doing okay at the time of my evaluation. - Objective Vital Signs & Weight: Vital Signs (12 hours) Temp Pulse Resp BP Pulse Ox 07/06/20 11:17 97.6 F 83 18 132/75 96 07/06/20 08:30 99 07/06/20 07:59 97.9 F 72 18 125/80 99 Weight Admit Weight 100 lb Weight 100 lb 1.438 oz Result Diagrams: 07/05/20 18:00 07/05/20 18:00 Additional Labs: Accuchecks 07/06/20 07/05/20 07/05/20 04:10 23:43 19:04 POC Glucose 114 H 114 H 126 H Hospitalist ROS - Medication Medications: Active Medications Generic Name Dose Route Start Last Admin Trade Name Freq PRN Reason Stop Dose Admin Acetaminophen 650 mg 07/06/20 04:20 07/06/20 04:53 Acetaminophen 325 Mg Tab PO 650 mg Q4H PRN Administration Headache/Fever or Pain Benzonatate 100 mg 07/05/20 23:12 07/05/20 23:44 Benzonatate 100 Mg Cap PO 100 mg TIDPRN PRN Administration Cough Enoxaparin Sodium 40 mg 07/05/20 09:00 07/06/20 08:29 Enoxaparin Sodium 40 Mg/0.4 Ml Syringe SC 40 mg 0900 ELAINE Administration Azithromycin 500 mg/ Sodium 250 mls @ 250 mls/hr 07/05/20 01:00 07/06/20 01:21 Chloride IVPB 250 mls Q24HR ELAINE Administration Ceftriaxone Sodium 1 gm/ 100 mls @ 200 mls/hr 07/05/20 01:00 07/06/20 00:03 Sodium Chloride IVPB 100 mls Q24HR ELAINE Administration Lisinopril 10 mg 07/06/20 09:00 07/06/20 08:29 Lisinopril 10 Mg Tab PO 10 mg DAILY ELAINE Administration Metoprolol Tartrate 50 mg 07/05/20 14:00 07/06/20 13:08 Metoprolol Tartrate 50 Mg Tab PO 50 mg Q8HR ELAINE Administration Morphine Sulfate 2 mg 07/05/20 18:17 07/06/20 17:19 Morphine 2 Mg/Ml Vial SLOW IVP 2 mg Q4H PRN Administration Dyspnea Sodium Chloride 10 ml 07/05/20 09:00 07/06/20 08:30 Flush - Normal Saline 10 Ml Syringe IVF 10 ml Q12HR ELAINE Administration Hospitalist Exam Vitals: Vital Signs (12 hours) Temp Pulse Resp BP Pulse Ox 07/06/20 11:17 97.6 F 83 18 132/75 96 07/06/20 08:30 99 07/06/20 07:59 97.9 F 72 18 125/80 99 Weight Admit Weight 100 lb Weight 100 lb 1.438 oz General Appearance: NAD, awake alert, ill appearing Heart: RRR, no murmur, no gallops, no rubs, normal peripheral pulses Respiratory: tachypneic Respiratory - other findings: Right-sided rales with minimal air exchange. Left-sided rales. Gastrointestinal: soft, non-tender, non-distended, normal bowel sounds, no palpable masses, no hepatomegaly, no splenomegaly, no bruit Extremities: no cyanosis, no clubbing, no edema Musculoskeletal: generalized weakness Hosp A/P (1) Metastatic primary lung cancer Code(s): C34.90 - MALIGNANT NEOPLASM OF UNSP PART OF UNSP BRONCHUS OR LUNG Status: Acute (2) Acute respiratory failure with hypoxia Code(s): J96.01 - ACUTE RESPIRATORY FAILURE WITH HYPOXIA Status: Acute (3) Malignant pleural effusion Code(s): J91.0 - MALIGNANT PLEURAL EFFUSION Status: Chronic (4) Shortness of breath Code(s): R06.02 - SHORTNESS OF BREATH Status: Chronic (5) History of pulmonary embolism Code(s): Z86.711 - PERSONAL HISTORY OF PULMONARY EMBOLISM Status: Chronic (6) Hypertension Code(s): I10 - ESSENTIAL (PRIMARY) HYPERTENSION Status: Chronic Qualifiers: Hypertension type: essential hypertension Qualified Code(s): I10 - Essential (primary) hypertension - Plan This patient unfortunately has advanced metastatic lung cancer with severe damage occurring to the lungs and thorax in the form of hydropneumothoraces requiring pleurodesis on the right. Now presents with worsening shortness of breath and evidence of fluid accumulation L on the left hemithorax. The initial thought was the patient may be amenable to some type of thoracentesis that could improve her initial breathing issues. Have reviewed the case with Dr. Navarro. He feels like there is not much opportunity for intervention in this situation. Recommendation is hospice. I have reviewed the case with Dr. Doran. Given the receptor profile on this patient's tumor based on her biopsy she will not be a candidate for Keytruda alone. She is not a candidate for chemotherapy in combination with Keytruda either at this time. Therefore essentially there are no chemotherapy options available to the patient. The recommendation is hospice. Dr. Doran indicates that hospice and palliative care have been discussed with the patient and her son on a number of occasions and they have not been amenable to that as of yet. I had a long conversation with the patient's son with this information in hand. He indicated to me that he wants to continue to push to have a possible thoracentesis. Ultimately he revealed that he is trying to buy some time for her because he would like to get her rebiopsied. I did explain to him that she does not have any real treatment options at this point. Strongly encouraged him to consider the fact that even if we were to try to address any of the small issues it would not change the big picture. She still has terminal cancer and that is still advancing. She would undoubtedly have recurrent or new complications arising again very shortly. He appears to be completely unrealistic in his approach and expectations. He asked that I call Dr. Misael Avery at [facility]. He performed her most recent procedure there. I have subsequently talked to Dr. Jarvis. He agrees that there is no further opportunity for significant intervention and agreed that the patient would be best served by pursuing a palliative approach. Of note when I was in the room the second time talking with the patient's son the patient was apparently much better and breathing more comfortably on nasal cannula. When the nurse came in she called him over and spoke to him and the son translated. She essentially said that she felt like the morphine that we had given her was very beneficial and she would like some more of that. I tried to reiterate to the son at that time that this is the type of approach we should be taking with her and focusing on keeping her more comfortable. Palliative care has been consulted. Case was reviewed with Vika Harrington who indicated she would likely be the 1 to come see the patient on behalf of oncology. In spite of only conversations the patient would like his mother to remain full code. Clearly her overall prognosis is extremely poor and this will be a terminal cancer for her. Her blood pressure was significantly elevated early in the day. This improved significantly after she received some morphine and her respiratory situation settled a bit. 07/06/2020 Dr. Doran met with the patient and her son. At that time it appeared that they were amenable to hospice. I revisited by palliative care and gave the same impression that hospice was the next step. Hospice representatives came twice today. They met with the patient's son this evening again. Now the son says that he is not sure and wants to give it another day to think about it. Ultimately if he does not pursue hospice tomorrow we will need to have a plan for discharge to home with palliative treatment on their own. Short of palliation of symptoms there is no therapeutic treatment occurring other than antibiotics which were only empiric at this point.
[2020-07-06] MEDS ORDERED: Furosemide 20 MG TAB PO SCH (19:45)
[2020-07-07] MEDS: Morphine 2 MG/ML VIAL SLOW IVP PRN ×4 (04:03→21:30)
[2020-07-07 05:43] LABS: #Lymphocytes 1.5 thou/uL (1.20-3.40); #Monocytes 0.8 thou/uL (0.11-0.59); #Neutrophils 5.1 thou/uL (1.40-6.50); %Basophils 0.2 % (0.0-1.0); %Eosinophils 0.2 % (0.0-10.0); %Lymphocytes 20.5 % (21.0-51.0); %Monocytes 10.6 % (0.0-10.0); %Neutrophils 68.4 % (42.0-75.0); Mean Corpuscular HGB CONC 31.5 g/dL (32.0-36.0); Mean Corpuscular Hemoglobin 24.7 pg (27.0-31.0); Mean Corpuscular Volume 78.6 fL (78.0-98.0); Mean Platelet Volume 6.5 fL (7.4-10.4); Platelet Count 359 thou/uL (130-400); RBC Distribution Width 14.8 % (11.5-14.5); Red Blood Cell (RBC) Count 3.25 mill/uL (4.20-5.40); White Blood Cell (WBC) Count 7.5 thou/uL (4.8-10.8)
[2020-07-07] MEDS: Metoprolol Tartrate 50 MG TAB PO SCH ×3 (05:59→20:58)
[2020-07-07] MEDS: Benzonatate 100 MG CAP PO PRN (06:01)
[2020-07-07 06:07] LABS: Anion Gap 14 mmol/L (10-20); BUN (Urea Nitrogen) 16 mg/dL (9.8-20.1); Calc. Creatinine Clearance 63 mL/min (70-130); Calcium 8.2 mg/dL (7.8-10.44); Carbon Dioxide 27 mmol/L (23-31); Chloride 94 mmol/L (98-107); Glucose 103 mg/dL (83-110); Potassium 3.5 mmol/L (3.5-5.1); Sodium 131 mmol/L (136-145)
[2020-07-07] MEDS: Lisinopril 10 MG TAB PO SCH (08:45)
[2020-07-07] MEDS: Enoxaparin Sodium 40 MG/0.4 ML SYRINGE SC SCH (08:46)
[2020-07-07] MEDS ORDERED: Lorazepam 2 MG/ML VIAL SLOW IVP PRN (11:41)
[2020-07-07] MEDS ORDERED: Furosemide 20 MG/2 ML VIAL SLOW IVP SCH (11:45)
--- NOTE | 2020-07-07 12:15 | RAD ---
Frontal radiograph chest: 07/07/2020 COMPARISON: 07/05/2020 HISTORY: Shortness of breath FINDINGS: There is a large masslike opacity in the right perihilar/right suprahilar region. There are innumerable bilateral pulmonary nodules noted. Findings are consistent with extensive malignancy. Bilateral small/moderate pleural effusions are suspected, right larger than left, not significantly c hanged. No pneumothorax is evident. Stable right-sided Port-A-Cath. IMPRESSION: No significant interval change.
--- NOTE | 2020-07-07 14:46 | PDOC.HOSPP ---
- Subjective Encounter Date: 07/07/20 Subjective: Patient continues to have intermittent episodes of tachypnea. Her oxygenation typically stays about the same. She does seem to benefit from some morphine. - Objective Vital Signs & Weight: Vital Signs (12 hours) Temp Pulse Resp BP BP Pulse Ox 07/07/20 12:30 28 H 07/07/20 12:19 97.7 F 91 20 125/75 96 07/07/20 11:35 48 H 07/07/20 08:45 137/72 93 L 07/07/20 07:47 97.1 F L 80 20 137/72 93 L 07/07/20 05:00 98 F 74 18 134/68 97 Weight Admit Weight 100 lb Weight 100 lb 1.438 oz I&O: 07/06/20 07/07/20 07/08/20 06:59 06:59 06:59 Intake Total 990 Output Total 1350 Balance -360 Result Diagrams: 07/07/20 05:24 07/07/20 05:24 Hospitalist ROS - Medication Medications: Active Medications Generic Name Dose Route Start Last Admin Trade Name Freq PRN Reason Stop Dose Admin Acetaminophen 650 mg 07/06/20 04:20 07/06/20 04:53 Acetaminophen 325 Mg Tab PO 650 mg Q4H PRN Administration Headache/Fever or Pain Benzonatate 100 mg 07/05/20 23:12 07/07/20 06:01 Benzonatate 100 Mg Cap PO 100 mg TIDPRN PRN Administration Cough Enoxaparin Sodium 40 mg 07/05/20 09:00 07/07/20 08:46 Enoxaparin Sodium 40 Mg/0.4 Ml Syringe SC 40 mg 0900 ELAINE Administration Azithromycin 500 mg/ Sodium 250 mls @ 250 mls/hr 07/05/20 01:00 07/06/20 23:58 Chloride IVPB 250 mls Q24HR ELAINE Administration Ceftriaxone Sodium 1 gm/ 100 mls @ 200 mls/hr 07/05/20 01:00 07/06/20 23:58 Sodium Chloride IVPB 100 mls Q24HR ELAINE Administration Lisinopril 10 mg 07/06/20 09:00 07/07/20 08:45 Lisinopril 10 Mg Tab PO 10 mg DAILY ELAINE Administration Metoprolol Tartrate 50 mg 07/05/20 14:00 02/05/21 13:55 Metoprolol Tartrate 50 Mg Tab PO 50 mg Q8HR ELAINE Administration Morphine Sulfate 2 mg 07/05/20 18:17 07/07/20 11:32 Morphine 2 Mg/Ml Vial SLOW IVP 2 mg Q4H PRN Administration Dyspnea Senna 2 tab 07/06/20 18:03 07/06/20 19:13 Senokot 8.6 Mg Tab PO 2 tab HSPRN PRN Administration Constipation Sodium Chloride 10 ml 07/05/20 09:00 07/07/20 08:46 Flush - Normal Saline 10 Ml Syringe IVF 10 ml Q12HR ELAINE Administration Hospitalist Exam Vitals: Vital Signs (12 hours) Temp Pulse Resp BP BP Pulse Ox 07/07/20 12:30 28 H 07/07/20 12:19 97.7 F 91 20 125/75 96 07/07/20 11:35 48 H 07/07/20 08:45 137/72 93 L 07/07/20 07:47 97.1 F L 80 20 137/72 93 L 07/07/20 05:00 98 F 74 18 134/68 97 Weight Admit Weight 100 lb Weight 100 lb 1.438 oz General - other findings: Mild baseline tachypnea. Heart: RRR, no murmur, no gallops, no rubs, normal peripheral pulses Respiratory - other findings: Diffuse bilateral rales. More on the right. Diminished air delta on R Gastrointestinal: soft, non-tender, non-distended, normal bowel sounds, no palpable masses, no hepatomegaly, no splenomegaly, no bruit Extremities: no cyanosis, no clubbing, no edema Musculoskeletal: generalized weakness Hosp A/P (1) Metastatic primary lung cancer Code(s): C34.90 - MALIGNANT NEOPLASM OF UNSP PART OF UNSP BRONCHUS OR LUNG Status: Acute (2) Acute respiratory failure with hypoxia Code(s): J96.01 - ACUTE RESPIRATORY FAILURE WITH HYPOXIA Status: Acute (3) Malignant pleural effusion Code(s): J91.0 - MALIGNANT PLEURAL EFFUSION Status: Chronic (4) Shortness of breath Code(s): R06.02 - SHORTNESS OF BREATH Status: Chronic (5) History of pulmonary embolism Code(s): Z86.711 - PERSONAL HISTORY OF PULMONARY EMBOLISM Status: Chronic (6) Hypertension Code(s): I10 - ESSENTIAL (PRIMARY) HYPERTENSION Status: Chronic Qualifiers: Hypertension type: essential hypertension Qualified Code(s): I10 - Essential (primary) hypertension - Plan This patient unfortunately has advanced metastatic lung cancer with severe damage occurring to the lungs and thorax in the form of hydropneumothoraces requiring pleurodesis on the right. Now presents with worsening shortness of breath and evidence of fluid accumulation L on the left hemithorax. The initial thought was the patient may be amenable to some type of thoracentesis that could improve her initial breathing issues. Have reviewed the case with Dr. Navarro. He feels like there is not much opportunity for intervention in this situation. Recommendation is hospice. I have reviewed the case with Dr. Doran. Given the receptor profile on this patient's tumor based on her biopsy she will not be a candidate for Keytruda alone. She is not a candidate for chemotherapy in co mbination with Keytruda either at this time. Therefore essentially there are no chemotherapy options available to the patient. The recommendation is hospice. Dr. Doran indicates that hospice and palliative care have been discussed with the patient and her son on a number of occasions and they have not been amenable to that as of yet. I had a long conversation with the patient's son with this i nformation in hand. He indicated to me that he wants to continue to push to have a possible thoracentesis. Ultimately he revealed that he is trying to buy some time for her because he would like to get her rebiopsied. I did explain to him that she does not have any real treatment options at this point. Strongly encouraged him to consider the fact that even if we were to try to address any of the small issues it would not change the big picture. She still has terminal cancer and that is still advancing. She would undoubtedly have recurrent or new complications arising again very shortly. He appears to be completely unrealistic in his approach and expectations. He asked that I call Dr. Misael Jarvis at [facility]. He performed her most recent procedure there. I have subsequently talked to Dr. Jarvis. He agrees that there is no further opportunity for significant intervention and agreed that the patient would be best served by pursuing a palliative approach. Of note when I was in the room the second time talking with the patient's son the patient was apparently much better and breathing more comfortably on nasal cannula. When the nurse came in she called him over and spoke to him and the son translated. She essentially said that she felt like the morphine that we had given her was very beneficial and she would like some more of that. I tried to reiterate to the son at that time that this is the type of approach we should be taking with her and focusing on keeping her more comfortable. Palliative care has been consulted. Case was reviewed with Vika Harrington who indicated she would likely be the 1 to come see the patient on behalf of oncology. In spite of only conversations the patient would like his mother to remain full code. Clearly her overall prognosis is extremely poor and this will be a terminal cancer for her. Her blood pressure was significantly elevated early in the day. This improved significantly after she received some morphine and her respiratory situation settled a bit. 07/06/2020 Dr. Doran met with the patient and her son. At that time it appeared that they were amenable to hospice. I revisited by palliative care and gave the same impression that hospice was the next step. Hospice representatives came twice today. They met with the patient's son this evening again. Now the son says that he is not sure and wants to give it another day to think about it. Ultimately if he does not pursue hospice tomorrow we will need to have a plan for discharge to home with palliative treatment on their own. Short of palliation of symptoms there is no therapeutic treatment occurring other than antibiotics which were only empiric at this point. 07/07/2020 today the patient indicated that he had spoken with Dr. Jarvis' PA, Yevgeniy, at his office. The patient's son tells me that they recommended that the patient be transferred to [facility]. I messaged Dr. Jarvis who indicated he had had no communication regarding the situation. He did indicate that he would be happy to see the patient in consult should the patient be transferred there. I spoke with the patient's son again and ultimately his decision is to try to transfer the patient to [facility]. He believes that if he can get some fluid drained from her lung that she will improve. Given the extensive nature of the tumors throughout her lungs it is unlikely that she will have substantial improvement and if she does it will likely be short-lived. He understands that but would like her transferred nonetheless. I have spoken with Dr. Crane at [facility] through the transfer center. They will communicate with Dr. Avery's and will let us know if they will accept the patient in transfer. In the interim I will give her another small dose of Lasix and add some lorazepam.
[2020-07-07 17:06] VITALS: TEMP 98.4
[2020-07-07 20:00] VITALS: BP 156/76
--- NOTE | 2020-07-08 14:06 | PDOC.DS.DS ---
Provider Date of Admission: 07/04/20 23:14 Admitting Provider: Israel Domínguez MD Primary Care Physician: [facility] Hospital Course: This patient unfortunately has advanced metastatic lung cancer with severe damage occurring to the lungs and thorax in the form of hydropneumothoraces requiring pleurodesis on the right. Now presents with worsening shortness of breath and evidence of fluid accumulation L on the left hemithorax. The initial thought was the patient may be amenable to some type of thoracentesis that could improve her initial breathing issues. Have reviewed the case with Dr. Navarro. He feels like there is not much opportunity for intervention in this situation. Recommendation is hospice. I have reviewed the case with Dr. Doran. Given the receptor profile on this patient's tumor based on her biopsy she will not be a candidate for Keytruda alone. She is not a candidate for chemotherapy in combination with Keytruda either at this time. Therefore essentially there are no chemotherapy options available to the patient. The recommendation is hospice. Dr. Doran indicates that hospice and palliative care have been discussed with the patient and her son on a number of occasions and they have not been amenable to that as of yet. I had a long conversation with the patient's son with this information in hand. He indicated to me that he wants to continue to push to have a possible thoracentesis. Ultimately he revealed that he is trying to buy some time for her because he would like to get her rebiopsied. I did explain to him that she does not have any real treatment options at this point. Strongly encouraged him to consider the fact that even if we were to try to address any of the small issues it would not change the big picture. She still has terminal cancer and that is still advancing. She would undoubtedly have recurrent or new complications arising again very shortly. He appears to be completely unrealistic in his approach and expectations. He asked that I call Dr. Misael Jarvis at [facility]. He performed her most recent procedure there. I have subsequently talked to Dr. Jarvis. He agrees that there is no further opportunity for significant intervention and agreed that the patient would be best served by pursuing a palliative approach. Of note when I was in the room the second time talking with the patient's son the patient was apparently much better and breathing more comfortably on nasal cannula. When the nurse came in she called him over and spoke to him and the son translated. She essentially said that she felt like the morphine that we had given her was very beneficial and she would like some more of that. I tried to reiterate to the son at that time that this is the type of approach we should be taking with her and focusing on keeping her more comfortable. Palliative care has been consulted. Case was reviewed with Vika Harrington who indicated she would likely be the 1 to come see the patient on behalf of oncology. In spite of only conversations the patient would like his mother to remain full code. Clearly her overall prognosis is extremely poor and this will be a terminal cancer for her. Her blood pressure was significantly elevated early in the day. This improved significantly after she received some morphine and her respiratory situation settled a bit. 07/06/2020 Dr. Doran met with the patient and her son. At that time it appeared that they were amenable to hospice. I revisited by palliative care and gave the same impression that hospice was the next step. Hospice representatives came twice today. They met with the patient's son this evening again. Now the son says that he is not sure and wants to give it another day to think about it. Ultimately if he does not pursue hospice tomorrow we will need to have a plan for discharge to home with palliative treatment on their own. Short of palliation of symptoms there is no therapeutic treatment occurring other than antibiotics which were only empiric at this point. 07/07/[address] Navarro. Ultimately he continues to believe that the patient's left-sided pleural effusion is relatively small as we initially indicated. Thoracentesis on that side would not significantly change the patient's situation. Her left lung appears to have numerous metastases which are more likely the source of her problems. Ultimately risk versus benefit is low in this patient. Therefore the decision was to not pursue intervention. The patient's son indicated that he had spoken with Dr. Jarvis' PA, Yevgeniy, at his office. He told me that they recommended that the patient be transferred to [facility]. I messaged Dr. Jarvis who indicated he had had no communication regarding the situation. He did indicate that he would be happy to see the patient in consult should the patient be transferred there. I spoke with the patient's son again and ultimately his decision is to try to transfer the patient to [facility]. He believes that if he can get some fluid drained from her lung that she will improve. Given the extensive nature of the tumors throughout her lungs it is unlikely that she will have substantial improvement and if she does it will likely be short-lived. He understands that but would like her transferred nonetheless. I have spoken with Dr. Crane at [facility] through the transfer center. They will communicate with Dr. Avery's and will let us know if they will accept the patient in transfer. In the interim I will give her another small dose of Lasix and add some lorazepam. Ultimately the patient was accepted in transfer to [facility] per family request. Resuscitation Status: 07/05/20 00:20 Resuscitation Status Routine Resuscitation Status: FULL: Full Resuscitation Lab Results: 07/07/20 05:24 07/07/20 05:24 Abnormal Lab Results - Last 48 hrs 07/07/20 05:24: Sodium 131 L, Chloride 94 L, Creatinine 0.55 L 07/07/20 05:24: RBC 3.25 L, Hgb 8.0 L, Hct 25.6 L, MCH 24.7 L, MCHC 31.5 L, RDW 14.8 H, MPV 6.5 L, Lymphocytes % 20.5 L, Monocytes % 10.6 H, Monocytes # 0.8 H Microbiology - Entire Visit 07/04/20 19:08 Venous blood - Left Hand Blood Culture - Preliminary NO GROWTH AT 48 HOURS 07/04/20 19:08 Venous blood - Left Arm Blood Culture - Preliminary NO GROWTH AT 48 HOURS Vitals: Weight Admit Weight 100 lb Weight 100 lb 1.438 oz Physical Exam: The patient was seen and examined on the day of discharge. Problem (1) Metastatic primary lung cancer Code(s): C34.90 - MALIGNANT NEOPLASM OF UNSP PART OF UNSP BRONCHUS OR LUNG Status: Acute (2) Acute respiratory failure with hypoxia Code(s): J96.01 - ACUTE RESPIRATORY FAILURE WITH HYPOXIA Status: Acute (3) Malignant pleural effusion Code(s): J91.0 - MALIGNANT PLEURAL EFFUSION Status: Chronic (4) Shortness of breath Code(s): R06.02 - SHORTNESS OF BREATH Status: Chronic (5) History of pulmonary embolism Code(s): Z86.711 - PERSONAL HISTORY OF PULMONARY EMBOLISM Status: Chronic (6) Hypertension Code(s): I10 - ESSENTIAL (PRIMARY) HYPERTENSION Status: Chronic Qualifiers: Hypertension type: essential hypertension Qualified Code(s): I10 - Essential (primary) hypertension Plan Home Medications: Medication Instructions Recorded Confirmed Type Lisinopril 10 mg PO DAILY 07/05/20 07/05/20 History Metoprolol Tartrate 50 mg PO Q8HR 07/05/20 07/05/20 History Rivaroxaban [Xarelto] 20 mg PO DAILY 07/05/20 07/05/20 History Acetaminophen [Tylenol Regular 650 mg PO Q4H PRN tab 07/07/20 Rx Strength] Azithromycin [Zithromax] 500 mg IVPB Q24HR vial 07/07/20 Rx Benzonatate [Tessalon] 100 mg PO TIDPRN PRN cap 07/07/20 Rx Bisacodyl [Dulcolax] 10 mg PO DAILYPRN PRN tab 07/07/20 Rx Enoxaparin Sodium [Lovenox] 40 mg SC 0900 syringe 07/07/20 Rx Lorazepam [Ativan] 0.5 mg SLOW IVP Q6H PRN vial 07/07/20 Rx Morphine 2 mg SLOW IVP Q4H PRN vial 07/07/20 Rx Sennosides [Senokot] 2 tab PO HSPRN PRN tab 07/07/20 Rx cefTRIAXone\ROCEPHIN [Rocephin] 1 gm IVPB Q24HR vial 07/07/20 Rx hydrALAZINE [Apresoline] 10 mg SLOW IVP Q4H PRN vial 07/07/20 Rx Allergies: No Known Allergies Allergy (Verified 07/05/20 00:48) Activity:: Activity as Tolerated Nourishment:: No Restrictions Referrals: [facility] [Primary Care Provider] - Disposition: OTHER HOSPITAL INPT Quality CORE MEASURES:: N/A
--- NOTE | 2020-07-08 22:28 | EKG ---
Test Reason : Blood Pressure : / mmHG Vent. Rate : 073 BPM Atrial Rate : 078 BPM P-R Int : 000 ms QRS Dur : 078 ms QT Int : 414 ms P-R-T Axes : 000 018 017 degrees QTc Int : 456 ms Sinus rhythm Septal infarct , age undetermined Abnormal ECG Confirmed by JAYLEN UREÑA DO ([id number]), food editor KELIN HURST ([id number]) on 07/08/2020 10:28:47 PM Referred By: Confirmed By:JAYLEN UREÑA DO
== END 2020-07-07 21:30 | disposition short-term general hospital (02) | DRG 180 ==
LOC: ERS 17:58 → T4-A 23:14
PROVIDERS: ADMIT Student in an Organized Health Care Education/Training Program; ATTEND Internal Medicine
DX: C34.90 Malignant neoplasm of unspecified part of unspecified bronchus or lung (principal); J96.01 Acute respiratory failure with hypoxia; J91.0 Malignant pleural effusion; E22.2 Syndrome of inappropriate secretion of antidiuretic hormone; J93.9 Pneumothorax, unspecified; Z20.822 Contact with and (suspected) exposure to COVID-19; I10 Essential (primary) hypertension; Z86.711 Personal history of pulmonary embolism
CPT/HCPCS: 0240U; 36415; 36416; 36600; 71045; 80048; 80053; 82550; 82805; 83605; 84484; 85025; 87040; 93005; J0456; J0696; J1650; J1940; J2060; J2270; J3490; J7050